=== PATIENT | male | born 1965 ===

== ENCOUNTER 2017-01-09 13:55 | Inpatient (IN) | payer MEDICARE, MEDICAID ==
[2017-01-09] MEDS ORDERED: Albuterol-Ipratrop 3 mg / 0.5 (3 ml) UD ONE (13:57)
[2017-01-09] MEDS: Albuterol-Ipratrop 3 mg / 0.5 (3 ml) UD IH SCH ×5 (14:05→22:35)
[2017-01-09 14:06] VITALS: BMI 24.8
[2017-01-09] MEDS ORDERED: Sodium Chloride 0.9% 1,000 ML IV STA (14:10)
--- NOTE | 2017-01-09 14:15 | ED PDOC ---
Arrival/HPI - General Chief Complaint: Shortness Of Breath Time Seen by Provider: 01/09/17 13:56 Historian: Patient - History of Present Illness Narrative History of Present Illness (Text): 01/09/17 14:22 A 51 year old male, whose past medical history includes asthma, diabetes, hypertension and gastric bypass (5 years ago), presents to the emergency department complaining of shortness of breath for the past three days. Patient also notes right sided chest discomfort that attributes to breathing. Patient denies any other complaints at this time. He states he saw his PMD Dr. Morris and has been taking antibiotics and nebulizers at home. Shortness of breath increased this AM. No hemoptyis. No pleuritic pain, no nausea or vomiting. PMD: Dr. Morris Sewer Cleaner: Dr. Knutson 01/09/17 23:04 Time/Duration: Other (3 days) Symptom Onset: Sudden Symptom Course: Unchanged Activities at Onset: Rest Context: Home Associated Symptoms (Text): right sided chest discomfort Past Medical History - Provider Review Nursing Documentation Reviewed: Yes - Infectious Disease Hx of Infectious Diseases: None - Cardiac Hx Hypertension: Yes Hx Pacemaker: No - Pulmonary Hx Asthma: Yes - Neurological Hx Paralysis: No - Hematological/Oncological Hx Blood Transfusions: No - Musculoskeletal/Rheumatological Hx Musculoskeletal Disorders: Yes - Psychiatric Hx Emotional Abuse: No Hx Physical Abuse: No Hx Substance Use: No - Surgical History Hx Gastric Bypass Surgery: Yes - Anesthesia Hx Anesthesia: Yes Hx Anesthesia Reactions: No Hx Malignant Hyperthermia: No - Suicidal Assessment Feels Threatened In Home Enviroment: No Family/Social History - Physician Review Nursing Documentation Reviewed: Yes Family/Social History: No Known Family HX Smoking Status: Never Smoked Hx Alcohol Use: No Hx Substance Use: No Allergies/Home Meds Allergies/Adverse Reactions: Allergies No Known Allergies Allergy (Verified 01/09/17 14:06) Home Medications: Home Meds Medication Instructions Recorded Confirmed Metformin HCl [Metformin] 1,000 mg PO BID 10/09/13 01/09/17 Metoprolol Tartrate 25 mg PO DAILY 10/09/13 01/09/17 Montelukast [Singulair] 10 mg PO DAILY 10/09/13 01/09/17 Rosuvastatin Calcium [Crestor] 10 mg PO DAILY 10/09/13 01/09/17 Sitagliptin Phosphate [Januvia] 100 mg PO DAILY 10/09/13 01/09/17 Albuterol 0.042% [Albuterol 0.042% 3 ml NEB BID 01/12/16 01/09/17 Inhal Trista (1.25mg/3ml) UD] Albuterol Sulfate [Proair Hfa] 2 puff IH DAILY 01/12/16 01/09/17 Aspirin [Ecotrin] 81 mg PO DAILY 01/12/16 01/09/17 Clopidogrel [Plavix] 75 mg PO DAILY 01/12/16 01/09/17 Insulin Human NPH/Reg [HumuLIN 15 units SC ACBD 01/12/16 01/09/17 70/30 (NPH/Reg)] Lactulose [Kristalose] 20 gm PO BID 01/12/16 01/09/17 Valsartan [Diovan] 40 mg PO DAILY 01/12/16 01/09/17 Advair Diskus 250/50 1 inh INH BID 01/13/16 01/09/17 Prednisone [Deltasone] 20 mg PO DAILY 01/09/17 01/09/17 levoFLOXacin [Levaquin] 750 mg PO DAILY 01/09/17 01/09/17 Review of Systems - Review of Systems Systems not reviewed;Unavailable: Acuity of Condition Constitutional: absent: Fevers Eyes: absent: Vision Changes ENT: absent: Hearing Changes Respiratory: SOB, Cough, Sputum, Wheezing Cardiovascular: Chest Pain, BUSCH. absent: Palpitations, Edema, Syncope Gastrointestinal: Appetite Changes. absent: Abdominal Pain, Diarrhea, Nausea, Vomiting Genitourinary Male: absent: Dysuria Musculoskeletal: absent: Back Pain Skin: absent: Rash Neurological: absent: Headache, Focal Weakness Endocrine: absent: Polyuria Hemo/Lymphatic: absent: Easy Bleeding Psychiatric: Anxiety Physical Exam - Physical Exam Narrative Physical Exam (Text): 01/09/17 14:15 Head: Atraumatic. Normocephalic. Eyes: PERRL. EOMI. Conjunctivae are not pale. ENT: Mucous membranes are moist and intact. Oropharynx is clear and symmetric. No drooling. No pharyngeal erythema/exudates or abscess. Neck: Supple. Full ROM. No JVD. No lymphadenopathy. Cardiovascular: Tachycardic. Regular rhythm. No murmurs, rubs, or gallops. Distal pulses are 2+ and symmetric. Pulmonary/Chest: Mild respiratory distress. Tachypneic. Bilateral expiratory wheezing. Abdominal: Soft and non-distended. There is no tenderness. No rebound, guarding, or rigidity. No organomegaly. Good bowel sounds. Back: No CVA tenderness. No midline tenderness. Extremities: No edema. No cyanosis. No clubbing. Full range of motion in all extremities. No calf tenderness. Skin: Diaphoretic. Pale. Neurological: Alert, awake, and oriented to person, place, time, and situation. Normal speech. No meningeal signs. Motor and sensory exam intact. Psychiatric: Good eye contact. Anxious. Appropriate interaction. Vital Signs Reviewed: Yes Vital Signs Temp Pulse Resp BP Pulse Ox 01/09/17 16:38 110 H 20 139/76 98 01/09/17 16:20 118 H 24 129/83 97 01/09/17 16:14 119 H 20 168/87 H 95 01/09/17 16:08 119 H 22 147/85 99 01/09/17 15:51 115 H 35 H 136/78 99 01/09/17 15:36 109 H 36 H 144/79 98 01/09/17 14:23 24 100 01/09/17 14:22 105 H 36 H 142/74 98 01/09/17 14:00 98.1 F 109 H 24 150/90 97 Temperature: Afebrile Pulse: Tachycardic Respiratory Rate: Tachypneic Appearance: Positive for: Ill-Appearing, Uncomfortable Pain Distress: Moderate Mental Status: Positive for: Alert and Oriented X 3 Finger Stick Blood Glucose: 416 Medical Decision Making ED Course and Treatment: 01/09/17 14:12 Impression: A 51 year old male with shortness of breath for the past three days. Patient is noted to be in mild respiratory distress on initial evaluation. Differential Diagnosis included but are not limited to: asthma exacerbation vs. Pneumonia vs. Coronary artery disease vs. Pulmonary embolism vs. Diabetic ketoacidosis Plan: -- EKG -- chest xray -- labs -- Urinalysis -- influenza A B -- Duoneb, Solumedrol, IV fluids, Zithromax, Rocephin, Morphine -- Reassess and disposition Progress Notes: Patient on initial evaluation is found to have diffuse wheezing, mild respiratory distress and tachypneic. Patient denied chest pain but was noted to have cardiomyopathy on previous hospitalizations. He does have prior history of asthma. He has been taking Levaquin for past three days. Nebulizers and iv steroids given. Patient remains tachypneic and has persitent diffuse wheezing after three nebulizers. Continues to deny chest pain or abdominal pain. EKG unremarkable. EKG: Ordered, reviewed, and independently interpreted the EKG. Rate : BPM Rhythm : NSR Interpretation : No ST-segment elevations or depressions, no T-wave inversions, normal intervals. Comparison : No previous EKG for comparison. Chest xray: Creator : Cuate Anderson MD IMPRESSION: No active disease. Patient has prior history of dvt but several years ago, no longer on anticoagulation. Ddimer unremarkable, there is persistent diffuse wheezing non exam. Patient with elevated lactate. As tachycardic, tachypneic, with elevated lactate and by my interpretation ? infiltrate on chest xray, code sepsis called , patient initated on iv antibiotics. Patient noted to have prior hitory of low ejection fraction, thus iv fluids tailored to this history. He is hyperglycemic, but exam at this time not consistent with DKA. IV fluids given and blood sugar improved. Patient became progressively more tachypneci. BIPAP initiated, he maintained aturations of 99-100% but tachypnea worsening and patient states he felt significantly more sob. Due to progressive tachypnea, persistent wheezing, development of severe respiratory distress, treatment options reviewed with patient, , and brother , patient is agreeable to intubation, procedure was explained to him. PROCEDURE: INTUBATION Performed by the emergency provider Time: Consent: Discussion of the risks, benefits, and alternatives to the procedure, along with informed consent was precluded by the urgency of the procedure and the patient condition. Timeout: A timeout to verify the correct patient, procedure, and site was performed. Indication: Pre-oxygenation: [id number] Medications: See MAR for details. ETT Size: 7.5 Confirmation: Cords directly visualized as tube passed, good bilateral breath sounds, positive CO2 detector color change, tube fogging, adequate chest rise, improving pulse oximetry reading, improved skin color, and absence of gastric sounds,. ETT Secured: The cuff was inflated and the tube was secured appropriately at a distance of cm at the lip. Post-Procedure: Patient sedated with Ativan, propofol, versed drip. chest xray: Creator : Cuate Anderson MD HISTORY: post intubation IMPRESSION: No active disease. Patient after intubation is awake despite boluses of propofol and ativan. states he take benzodiazepines and narcotic pain medication for "bad back" regularly. Welding Operator Dr. Collier consulted. Versed drip ordered. After medication he is comfortable on vent. Care endorsed to admitting and ICU team for vent management and drip management. Patient reportedly had expressed some abdominal discomfort to consults, will also have serial abdominal exams based on history of gastric bypass and to correlate with any of his current symptoms. Family updated with patient's critical condition and risk of cardiac disease, pulmonary disease, infection, asthma, pneumonia, bowel disease. Risks of diabetes and cardiac disease also reviewed. 01/09/17 23:19 - Critical Care Critical Care Minutes: 45 minutes - Lab Interpretations Microbiology Results: Microbiology Results 01/09/17 14:27 Blood Blood Culture - Preliminary NO GROWTH AFTER 4 DAYS 01/09/17 14:26 Blood Blood Culture - Preliminary NO GROWTH AFTER 4 DAYS Lab Results: 01/09/17 14:18 01/09/17 14:18 Lab Results 01/09/17 14:35: pCO2 36, pO2 174.0 H, HCO3 24.5, ABG pH 7.44, ABG Total CO2 25.6 , ABG O2 Saturation 99.5 H, ABG Base Excess 0.6, ABG Potassium 4.4, Sodium 134.0 , Chloride 103.0, Glucose 383 H, Lactate 2.9 H, FiO2 40.0, Arterial Blood Potassium 4.4 01/09/17 14:30: Influenza Typ A,B (EIA) Negative for flu a/b 01/09/17 14:18: PT 10.7, INR 0.99, APTT 25.8, D-Dimer, Quantitative 0.19 01/09/17 14:18: WBC 11.3 H D, RBC 4.62, Hgb 13.3 L, Hct 40.3 L, MCV 87.2, MCH 28.8, MCHC 33.0, RDW 13.1, Plt Count 296, MPV 9.0, Gran % 89.5 H, Lymph % (Auto ) 8.6 L, [place] % (Auto) 1.4, Eos % (Auto) 0.3 L, Baso % (Auto) 0.2, Gran # 10.09 H, Lymph # 1.0 L, [place] # 0.2, Eos # 0.0, Baso # 0.02 01/09/17 14:18: Sodium 136, Chloride 94 L, Potassium 5.3 H, Carbon Dioxide 28, Anion Gap 19, BUN 14, Creatinine 0.8, Est GFR ( Amer) > 60, Est GFR (Non- Af Amer) > 60, Random Glucose 453 H* D, Calcium 9.4, Total Bilirubin 1.1, AST 65 H, ALT 83 H, Alkaline Phosphatase 66, Lactate Dehydrogenase 552, Total Creatine Kinase 134, Troponin I < 0.01, NT-Pro-B Natriuret Pep 131, Total Protein 8.4 H, Albumin 4.8, Globulin 3.6, Albumin/Globulin Ratio 1.3 01/09/17 14:18: pO2 33, VBG pH 7.36, VBG pCO2 52.0, VBG HCO3 29.4 H, VBG Total CO2 31.0 H, VBG O2 Sat (Calc) 69.4 H, VBG Base Excess 2.8 H, VBG Potassium 5.4 H , Sodium 136.0, Chloride 99.0, Glucose 464 H*, Lactate 4.5 H*, FiO2 21.0, Venous Blood Potassium 5.4 H 01/09/17 14:07: POC Glucose (mg/dL) 416 H* I have reviewed the lab results: Yes - RAD Interpretation Radiology Orders: 01/09/17 14:06 CHEST PORTABLE [RAD] Stat Playground Aide: Radiologist - EKG Interpretation EKG Interpretation (Text): 01/09/17 23:07 EKG at 14:04 sinus tachycardia rate of 108 Interpreted by ED Physician: Yes Type: 12 lead EKG - Medication Orders Current Medication Orders: Discontinued Medications Acetaminophen (Tylenol 325mg Tab) 650 mg PO Q6 PRN PRN Reason: Fever >100.4 F Albuterol/Ipratropium (Duoneb 3 Mg/0.5 Mg (3 Ml) Ud) Confirm Administered Dose 3 ml .ROUTE .STK-MED ONE Stop: 01/09/17 13:58 Last Admin: 01/09/17 14:19 Dose: Albuterol/Ipratropium (Duoneb 3 Mg/0.5 Mg (3 Ml) Ud) 3 ml IH Q15M [facility] Stop: 01/09/17 14:46 Last Admin: 01/09/17 14:35 Dose: 3 ml Albuterol/Ipratropium (Duoneb 3 Mg/0.5 Mg (3 Ml) Ud) 3 ml IH [id number] [facility] Last Admin: 01/11/17 07:11 Dose: 3 ml Albuterol/Ipratropium (Duoneb 3 Mg/0.5 Mg (3 Ml) Ud) 3 ml IH Q2H PRN PRN Reason: Shortness of Breath Last Admin: 01/10/17 14:23 Dose: 3 ml Albuterol/Ipratropium (Duoneb 3 Mg/0.5 Mg (3 Ml) Ud) 3 ml IH [id number] [facility] Last Admin: 01/12/17 07:17 Dose: 3 ml Aspirin (Ecotrin) 81 mg PO DAILY [facility] Last Admin: 01/12/17 09:01 Dose: 81 mg Atorvastatin Calcium (Lipitor) 40 mg PO DIN [facility] Last Admin: 01/11/17 17:45 Dose: 40 mg Clopidogrel Bisulfate (Plavix) 75 mg PO DAILY [facility] Last Admin: 01/12/17 09:02 Dose: 75 mg Enoxaparin Sodium (Lovenox) 40 mg SC DAILY [facility] PRN Reason: Protocol Last Admin: 01/12/17 09:01 Dose: 40 mg Etomidate (Amidate) Confirm Administered Dose 20 mg IV .STK-MED ONE Stop: 01/09/17 15:46 Last Admin: 01/09/17 15:50 Dose: 20 mg Sodium Chloride (Sodium Chloride 0.9%) 1,000 mls @ 1,000 mls/hr IV .Q1H STA Stop: 01/09/17 15:09 Last Admin: 01/09/17 14:19 Dose: 1,000 mls/hr Ceftriaxone Sodium (Rocephin 1 Gram Ivpb) 1 gm in 100 mls @ 200 mls/hr IVPB ONCE STA PRN Reason: Protocol Stop: 01/09/17 14:51 Last Admin: 01/09/17 14:49 Dose: 200 mls/hr Magnesium Sulfate 2 gm/ Sodium (Chloride) 104 mls @ 102 mls/hr IVPB ONCE ONE Stop: 01/09/17 15:39 Last Admin: 01/09/17 14:57 Dose: 102 mls/hr Azithromycin (Zithromax 500mg In Ns) 500 mg in 250 mls @ 166.667 mls/hr IVPB STAT STA PRN Reason: Protocol Stop: 01/09/17 16:08 Last Admin: 01/09/17 15:17 Dose: 166.667 mls/hr Propofol (Diprivan) Confirm Administered Dose 1,000 mg in 100 mls @ ud .ROUTE .[place] ONE Stop: 01/09/17 15:57 Last Admin: 01/09/17 16:00 Dose: 50 mg Midazolam 100 mg/100ml in NS (Midazolam 100 Mg/100ml In Ns) 100 mg in 100 mls @ 5 mls/hr IV .Q20H PRN; Protocol; 5 MG/HR PRN Reason: Agitation Last Admin: 01/09/17 17:31 Dose: 10 mg/hr, 10 mls/hr Ceftriaxone Sodium (Rocephin 1 Gram Ivpb) 1 gm in 100 mls @ 100 mls/hr IVPB DAILY [facility] PRN Reason: Protocol Last Admin: 01/12/17 09:02 Dose: 100 mls/hr Azithromycin (Zithromax 500mg In Ns) 500 mg in 250 mls @ 167 mls/hr IVPB DAILY [facility] PRN Reason: Protocol Last Admin: 01/12/17 09:02 Dose: 167 mls/hr Propofol (Diprivan) Confirm Administered Dose 1,000 mg in 100 mls @ ud .ROUTE .[place] ONE Stop: 01/09/17 18:13 Last Admin: 01/09/17 18:36 Dose: Fentanyl Citrate (Fentanyl Citrate/Sodium Chloride 1 Mg/100 Ml) 1,000 mcg in 100 mls @ 2 mls/hr IV .Q24H PRN; Protocol; 20 MCG/HR PRN Reason: TITRATE PER MD ORDER Last Admin: 01/09/17 18:29 Dose: 50 mcg/hr, 5 mls/hr Propofol (Diprivan) 1,000 mg in 100 mls @ 2.422 mls/hr IV .Q24H PRN; Protocol; 5 MCG/KG/MIN PRN Reason: TITRATE PER MD ORDER Last Admin: 01/10/17 09:12 Dose: 40 mcg/kg/min, 19.377 mls/hr Ibuprofen (Motrin Tab) 600 mg PO Q6H PRN PRN Reason: Pain, moderate (4-7) Last Admin: 01/11/17 19:58 Dose: 600 mg Re-Assess: MAR Pain/Vitals Document 01/11/17 20:58 PD (Rec: 01/11/17 22:15 PD [id number]) Pain Reassessment Is This A Pain ReAssessment? Yes Sleep Is patient sleeping during reassessment? Yes Insulin Human Regular (Humulin R Low) 0 units SC [facility] PRN Reason: Protocol Last Admin: 01/11/17 07:57 Dose: 3 units Insulin Human Regular (Humulin R Med) 0 units SC [facility] PRN Reason: Protocol Last Admin: 01/12/17 11:54 Dose: 3 units Insulin Lispro Protam/Lispro Human (Humalog Mix 75/25) 10 units SC BID [facility] Last Admin: 01/11/17 07:39 Dose: Insulin Lispro Protam/Lispro Human (Humalog Mix 75/25) 14 units SC BID [facility] Last Admin: 01/10/17 17:10 Dose: Not Given Non-Admin Reason: NPO Insulin Lispro Protam/Lispro Human (Humalog Mix 75/25) 16 units SC BID [facility] Last Admin: 01/12/17 09:01 Dose: 16 u Lorazepam (Ativan) Confirm Administered Dose 2 mg .ROUTE .STK-MED ONE Stop: 01/09/17 16:11 Last Admin: 01/09/17 16:12 Dose: 2 mg Lorazepam (Ativan) 2 mg IVP ONCE ONE Stop: 01/09/17 16:18 Last Admin: 01/09/17 17:22 Dose: Lorazepam (Ativan) 2 mg IVP ONCE ONE Stop: 01/09/17 16:18 Last Admin: 01/09/17 16:17 Dose: 2 mg Lorazepam (Ativan) 1 mg IVP ONCE ONE PRN Reason: Protocol Stop: 01/10/17 08:52 Last Admin: 01/10/17 09:11 Dose: 1 mg Re-Assess: Reassess Psych Meds Document 01/10/17 09:41 CLA (Rec: 01/10/17 10:39 CLA [id number]) Reassess Psych Med Effective Lorazepam (Ativan) 1 mg IVP Q3 PRN; Protocol PRN Reason: Anxiety Losartan Potassium (Cozaar) 25 mg PO DAILY [facility] Last Admin: 01/12/17 09:00 Dose: 25 mg Methylprednisolone (Solu-Medrol) 125 mg IVP STAT STA Stop: 01/09/17 14:08 Last Admin: 01/09/17 14:15 Dose: 125 mg Methylprednisolone (Solu-Medrol) 60 mg IVP Q12 [facility] Last Admin: 01/10/17 22:04 Dose: 60 mg Methylprednisolone (Solu-Medrol) 40 mg IVP Q12 [facility] Last Admin: 01/12/17 09:02 Dose: 40 mg Montelukast Sodium (Singulair) 10 mg PO DAILY [facility] Last Admin: 01/12/17 09:02 Dose: 10 mg Morphine Sulfate (Morphine) 2 mg IVP STAT STA Stop: 01/09/17 15:43 Last Admin: 01/11/17 07:39 Dose: Morphine Sulfate (Morphine) 2 mg IVP STAT STA Stop: 01/11/17 05:33 Last Admin: 01/11/17 05:42 Dose: 2 mg Re-Assess: ZANE Pain Assessment Document 01/11/17 06:42 HD (Rec: 01/11/17 07:41 HD [id number]) Pain Reassessment Is this a pain reassessment? Yes Sleep Is patient sleeping during reassessment? Yes Presence of Pain Presence of Pain No Ondansetron HCl (Zofran Inj) 4 mg IVP Q4H PRN PRN Reason: Nausea/Vomiting Pantoprazole Sodium (Protonix Inj) 40 mg IVP DAILY [facility] Last Admin: 01/11/17 10:24 Dose: 40 mg Pantoprazole Sodium (Protonix Ec Tab) 40 mg PO ACB [facility] Last Admin: 01/12/17 09:02 Dose: 40 mg Succinylcholine Chloride (Quelicin) Confirm Administered Dose 200 mg IV .STK- MED ONE Stop: 01/09/17 15:46 Last Admin: 01/09/17 17:17 Dose: 100 mg - Scribe Statement Nick Arita All medical record entries made by the Claytonibaudrey were at my direction and personally dictated by me. I have reviewed the chart and agree that the record accurately reflects my personal performance of the history, physical exam, medical decision making, and the department course for this patient. I have also personally directed, reviewed, and agree with the discharge instructions and disposition. Disposition/Present on Arrival - Present on Arrival Any Indicators Present on Arrival: Yes History of DVT/PE: No History of Uncontrolled Diabetes: Yes Urinary Catheter: No History of Decub. Ulcer: No History Surgical Site Infection Following: None - Disposition Have Diagnosis and Disposition been Completed?: Yes Diagnosis: Status asthmaticus, Pneumonia, Respiratory distress, Hyperglycemia, Tachypnea Disposition: HOSPITALIZED Disposition Time: 16:30 Patient Plan: Admission, ICU Condition: CRITICAL
[2017-01-09 14:20] LABS: ADD MANUAL DIFF? NO
[2017-01-09] MEDS ORDERED: cefTRIAXone 1 gm 1 GM/100 ML BAG IVPB STA (14:22)
[2017-01-09 14:25] LABS: BASO # 0.02 K/mm3 (0.0-2.0); BASO % 0.2 % (0.0-3.0); EOS % 0.3 % (1.5-5.0); GRAN # 10.09 (1.4-6.5); GRAN % 89.5 % (50.0-68.0); HEMATOCRIT 40.3 % (42.0-52.0); LYMPH % 8.6 % (22.0-35.0); MEAN CELL VOLUME 87.2 fL (80.0-105.0); MEAN CORPUSCULAR HEMOGLOBIN 28.8 pg (25.0-35.0); MONO # 0.2 (0.1-0.6); MONO % 1.4 % (1.0-6.0); PLATELET COUNT 296 10^3/uL (120.0-450.0); RED CELL DISTRIBUTION WIDTH 13.1 % (11.5-14.5); WHITE BLOOD COUNT 11.3 10^3/ul (4.5-11.0)
[2017-01-09 14:37] LABS: ALB/GLOB RATIO 1.3 (1.1-1.8); ALKALINE PHOSPHATASE 66 U/L (38-133); ALT/SGPT 83 U/L (7-56); AST/SGOT 65 U/L (15-59); BILIRUBIN,TOTAL 1.1 mg/dL (0.2-1.3); BLOOD UREA NITROGEN 14 mg/dL (7-21); CALCIUM 9.4 mg/dL (8.4-10.5); CARBON DIOXIDE 28 mmol/L (21-33); CHLORIDE 94 mmol/L (98-107); GFR AFRICAN-AMERICAN > 60; POTASSIUM 5.3 mmol/L (3.6-5.0); SODIUM 136 mmol/L (132-148); TOTAL PROTEIN 8.4 g/dL (5.8-8.3)
[2017-01-09] MEDS ORDERED: Magnesium Sulfate 2 GM in Sodium Chloride 0.9% 100 ML IVPB ONE (14:38)
[2017-01-09 14:39] LABS: D DIMER 0.19 mg/L FEU (0-0.50); INR 0.99 (0.93-1.08); PARTIAL THROMBOPLASTIN TIME 25.8 Seconds (23.7-30.8)
[2017-01-09] MEDS ORDERED: Azithromycin 500MG/NS 250ml 500 MG/250 ML BAG IVPB STA (14:39)
[2017-01-09 14:40] LABS: VENOUS BLOOD GAS BASE EXCESS 2.8 mmol/L (0.0-2.0); VENOUS BLOOD PH 7.36 (7.32-7.43)
[2017-01-09 14:40] LABS: ARTERIAL BLOOD GAS HCO3 24.5 mmol/L (21-28); ARTERIAL BLOOD GAS PH 7.44 (7.35-7.45)
[2017-01-09 14:50] LABS: GLUCOSE,RANDOM 453 mg/dL (70-110); TROPONIN I < 0.01 ng/mL
[2017-01-09] MEDS ORDERED: Morphine 2 mg/ml ISec IVP STA (15:42)
[2017-01-09] MEDS ORDERED: Etomidate 20 mg/10ml Inj IV ONE (15:45)
[2017-01-09] MEDS ORDERED: Succinylcholine 200 mg/10 ml Inj IV ONE (15:45)
[2017-01-09] MEDS ORDERED: Propofol 10 mg/ml 1,000 MG/100 ML VIAL ONE ×2 (15:56→18:12)
--- NOTE | 2017-01-09 16:06 | CP.PCM.HP ---
<Ml Chapin - Last Filed: 01/10/17 06:21> History of Present Illness - History of Present Illness History of Present Illness: 51 yo M w/ PMHx of asthma, DM, systolic heart failure with EF of 37%, HTN, DVT x1, and gastric bypass 5 years prior, presents with 3 days of gradually worsening SOB. Pt was unable to speak, so pt's gave the hx. Pt's reports that pt had recent cold, chills, nausea, intermittent diarrhea due to gastric bypass. Also reports R chest discomfort associated with deep breathing. Denies sick contacts. PMHx: asthma, DM, systolic heart failure with EF of 37%, HTN, DVT x1 Sx: gastric bypass 5 years prior, cholecystectomy medications: allergies: nkda social: denies etoh, smoking, illicit drugs Present on Admission - Present on Admission Any Indicators Present on Admission: Yes History of DVT/PE: Yes Review of Systems - Review of Systems Systems not reviewed;Unavailable: Respiratory Distress Past Patient History - Infectious Disease Hx of Infectious Diseases: None - Past Social History Smoking Status: Never Smoked - CARDIAC Hx Hypertension: Yes Hx Pacemaker: No - PULMONARY Hx Asthma: Yes - NEUROLOGICAL Hx Paralysis: No - HEMATOLOGICAL/ONCOLOGICAL Hx Blood Transfusions: No - MUSCULOSKELETAL/RHEUMATOLOGICAL Hx Musculoskeletal Disorders: Yes - PSYCHIATRIC Hx Emotional Abuse: No Hx Physical Abuse: No Hx Substance Use: No - SURGICAL HISTORY Hx Cholecystectomy: Yes Hx Gastric Bypass Surgery: Yes - ANESTHESIA Hx Anesthesia: Yes Hx Anesthesia Reactions: No Hx Malignant Hyperthermia: No Meds Home Medications: Home Medication List Medication Instructions Recorded Confirmed Type Albuterol HFA [Ventolin HFA 90 2 puff IH [id number] #1 puff 01/12/17 Rx mcg/actuation (8 g)] Doxycycline Hyclate 100 mg PO Q12 #10 capsule 01/12/17 Rx Famotidine [Pepcid] 40 mg PO DAILY #5 tablet 01/12/17 Rx Prednisone [Deltasone] 40 mg PO DAILY #5 tablet 01/12/17 Rx Allergies/Adverse Reactions: Allergies Allergy/AdvReac Type Severity Reaction Status Date / Time No Known Allergies Allergy Verified 01/09/17 14:06 Physical Exam - Constitutional Appears: In Acute Distress - Head Exam Head Exam: ATRAUMATIC, NORMOCEPHALIC - Eye Exam Eye Exam: EOMI, Normal appearance - Respiratory Exam Respiratory Exam: Accessory Muscle Use, Respiratory Distress - Cardiovascular Exam Cardiovascular Exam: Tachycardia, +S1, +S2 - GI/Abdominal Exam GI & Abdominal Exam: Soft, Tenderness Additional comments: right sided tenderness, no rebound - Exam External exam: absent: Lacerations, Lesions - Extremities Exam Extremities exam: Positive for: pedal pulses present. Negative for: pedal edema , tenderness - Back Exam Back exam: absent: CVA tenderness (L), CVA tenderness (R) - Neurological Exam Neurological exam: Alert - Skin Skin Exam: Intact, Normal Color Results - Vital Signs Recent Vital Signs: Last Vital Signs Temp 98.1 F 01/09/17 14:00 Pulse 109 H 01/09/17 14:00 Resp 24 01/09/17 14:23 BP 150/90 01/09/17 14:00 Pulse Ox 100 01/09/17 14:23 - Labs Result Diagrams: 01/10/17 05:00 01/10/17 05:00 Labs: Laboratory Results - last 24 hr 01/09/17 01/09/17 01/09/17 14:07 14:18 14:18 WBC RBC Hgb Hct MCV MCH MCHC RDW Plt Count MPV Gran % Lymph % (Auto) [place] % (Auto) Eos % (Auto) Baso % (Auto) Gran # Lymph # [place] # Eos # Baso # PT INR APTT D-Dimer, Quantitative pCO2 pO2 33 HCO3 ABG pH ABG Total CO2 ABG O2 Saturation ABG Base Excess ABG Potassium VBG pH 7.36 VBG pCO2 52.0 VBG HCO3 29.4 H VBG Total CO2 31.0 H VBG O2 Sat (Calc) 69.4 H VBG Base Excess 2.8 H VBG Potassium 5.4 H Sodium 136.0 136 Chloride 99.0 94 L Glucose 464 H* Lactate 4.5 H* FiO2 21.0 Potassium 5.3 H Carbon Dioxide 28 Anion Gap 19 BUN 14 Creatinine 0.8 Est GFR ( Amer) > 60 Est GFR (Non-Af Amer) > 60 POC Glucose (mg/dL) 416 H* Random Glucose 453 H* D Calcium 9.4 Total Bilirubin 1.1 AST 65 H ALT 83 H Alkaline Phosphatase 66 Lactate Dehydrogenase 552 Total Creatine Kinase 134 Troponin I < 0.01 NT-Pro-B Natriuret Pep 131 Total Protein 8.4 H Albumin 4.8 Globulin 3.6 Albumin/Globulin Ratio 1.3 Arterial Blood Potassium Venous Blood Potassium 5.4 H Influenza Typ A,B (EIA) 01/09/17 01/09/17 01/09/17 14:18 14:18 14:30 WBC 11.3 H D RBC 4.62 Hgb 13.3 L Hct 40.3 L MCV 87.2 MCH 28.8 MCHC 33.0 RDW 13.1 Plt Count 296 MPV 9.0 Gran % 89.5 H Lymph % (Auto) 8.6 L [place] % (Auto) 1.4 Eos % (Auto) 0.3 L Baso % (Auto) 0.2 Gran # 10.09 H Lymph # 1.0 L [place] # 0.2 Eos # 0.0 Baso # 0.02 PT 10.7 INR 0.99 APTT 25.8 D-Dimer, Quantitative 0.19 pCO2 pO2 HCO3 ABG pH ABG Total CO2 ABG O2 Saturation ABG Base Excess ABG Potassium VBG pH VBG pCO2 VBG HCO3 VBG Total CO2 VBG O2 Sat (Calc) VBG Base Excess VBG Potassium Sodium Chloride Glucose Lactate FiO2 Potassium Carbon Dioxide Anion Gap BUN Creatinine Est GFR ( Amer) Est GFR (Non-Af Amer) POC Glucose (mg/dL) Random Glucose Calcium Total Bilirubin AST ALT Alkaline Phosphatase Lactate Dehydrogenase Total Creatine Kinase Troponin I NT-Pro-B Natriuret Pep Total Protein Albumin Globulin Albumin/Globulin Ratio Arterial Blood Potassium Venous Blood Potassium Influenza Typ A,B (EIA) Negative for flu a/b 01/09/17 14:35 WBC RBC Hgb Hct MCV MCH MCHC RDW Plt Count MPV Gran % Lymph % (Auto) [place] % (Auto) Eos % (Auto) Baso % (Auto) Gran # Lymph # [place] # Eos # Baso # PT INR APTT D-Dimer, Quantitative pCO2 36 pO2 174.0 H HCO3 24.5 ABG pH 7.44 ABG Total CO2 25.6 ABG O2 Saturation 99.5 H ABG Base Excess 0.6 ABG Potassium 4.4 VBG pH VBG pCO2 VBG HCO3 VBG Total CO2 VBG O2 Sat (Calc) VBG Base Excess VBG Potassium Sodium 134.0 Chloride 103.0 Glucose 383 H Lactate 2.9 H FiO2 40.0 Potassium Carbon Dioxide Anion Gap BUN Creatinine Est GFR ( Amer) Est GFR (Non-Af Amer) POC Glucose (mg/dL) Random Glucose Calcium Total Bilirubin AST ALT Alkaline Phosphatase Lactate Dehydrogenase Total Creatine Kinase Troponin I NT-Pro-B Natriuret Pep Total Protein Albumin Globulin Albumin/Globulin Ratio Arterial Blood Potassium 4.4 Venous Blood Potassium Influenza Typ A,B (EIA) Assessment & Plan - Assessment and Plan (Free Text) Plan: 51 yo M w/ PMHx of asthma, DM, systolic heart failure with EF of 37%, HTN, DVT x1, and gastric bypass 5 years prior, presents with 3 days of gradually worsening SOB. Currently intubated. respiratory failure likely 2/2 asthma exacerbation: intubated ceftriaxone 1gm IVPB qd azithromycin 500 mg IVPb qd solumedrol 60 mg IV q12 cardiomyopathy: Cardiac consult Echo ordered initial troponin negative DM: ISS low humalog mix 75/25 10 u sc BID achs accuchecks ppx measures lovenox 40 protonix IV zofran 4mg q4 IV prn <Desirae Waldron - Last Filed: 01/17/17 16:37> Results - Vital Signs Recent Vital Signs: Last Vital Signs Temp 98.3 F 01/12/17 12:00 Pulse 91 H 01/12/17 12:00 Resp 20 01/12/17 11:59 BP 100/63 01/12/17 09:00 Pulse Ox 98 01/12/17 11:50 - Labs Result Diagrams: 01/12/17 05:40 01/12/17 05:40 Attending/Attestation - Attestation I have personally seen and examined this patient.: Yes I have fully participated in the care of the patient.: Yes I have reviewed all pertinent clinical information: Yes Notes (Text): 01/17/17 12:25 Attending note: patient seen and examined with resident in ER. Patient is in acute respiratory distress. Patient seen with ICU attending and ER physician. History from patient's . This is a 51 year old male with history of asthma, IDDM, CHF (EF~37%), HTN, history of DVT 10 years ago, gastric bypass 5 years ago, CAD who got admitted for evaluation of worsening of shortness of breath and found to have respiratory distress due to asthma exacerbation and required intubation. Admit the patient to ICU. Continue vent settings per manager area. Cardiology evaluation requested. Cardiac enzymes ordered. History of opiate and Xanax use. Continue IV morphine and Ativan. Started on Versed drip. Started on Iv Rocephin and Zithromax. Monitor the patient closely in ICU. The diagnosis and follow-up plan discussed with patient's in detail by the bedside. 01/17/17 16:37
[2017-01-09 16:10] LABS: PH,URINE 6.5 (4.7-8.0); URINE BILIRUBIN NEGATIVE (NEGATIVE); URINE BLOOD NEGATIVE (NEGATIVE); URINE GLUCOSE (UA) >=1000 mg/dL (NEGATIVE); URINE KETONE NEGATIVE (NEGATIVE); URINE LEUKOCYTE ESTERASE NEGATIVE Leu/uL (NEGATIVE); URINE PROTEIN NEGATIVE mg/dL (<30 mg/dL)
[2017-01-09 16:22] LABS: URINE APPEARANCE CLEAR (CLEAR); URINE COLOR STRAW (YELLOW)
[2017-01-09] MEDS: Midazolam 100 mg/100ml in NS 100 MG/100 ML SOL IV PRN ×2 (17:23→17:31)
[2017-01-09] MEDS: Propofol 10 mg/ml 1,000 MG/100 ML VIAL IV PRN (18:00)
--- NOTE | 2017-01-09 18:00 | RAD ---
HISTORY: sob COMPARISON: No prior. FINDINGS: LUNGS: No active pulmonary disease. Limited by poor inspiration. PLEURA: No significant pleural effusion identified, no pneumothorax apparent. CARDIOVASCULAR: Normal. OSSEOUS STRUCTURES: No significant abnormalities. VISUALIZED UPPER ABDOMEN: Normal. OTHER FINDINGS: None. IMPRESSION: No active disease.
[2017-01-09 18:07] LABS: VENOUS BLOOD GAS BASE EXCESS 0.3 mmol/L (0.0-2.0); VENOUS BLOOD PH 7.35 (7.32-7.43)
[2017-01-09] MEDS ORDERED: Fentanyl 1000mcg/100ml NS 1,000 MCG/100 ML BAG IV PRN (18:13)
[2017-01-09] MEDS: Insulin Lispro (humaLOG) MIX 75/25(10 ml) SC SCH (18:14)
--- NOTE | 2017-01-09 18:15 | RAD ---
HISTORY: post intubation COMPARISON: No prior. FINDINGS: LUNGS: No active pulmonary disease. PLEURA: No significant pleural effusion identified, no pneumothorax apparent. CARDIOVASCULAR: Normal. OSSEOUS STRUCTURES: No significant abnormalities. VISUALIZED UPPER ABDOMEN: Normal. OTHER FINDINGS: ETT above the gary. IMPRESSION: No active disease.
[2017-01-09] MEDS: Enoxaparin 40 mg Syringe SC SCH (18:16)
[2017-01-09 20:15] LABS: TROPONIN I < 0.01 ng/mL
--- NOTE | 2017-01-09 20:42 | CON ---
DATE: 01/09/2017 REQUESTING PHYSICIAN: Dr. Waldron. CHIEF COMPLAINT: The patient presents with shortness of breath and wheezing, acute exacerbation of a sthma. HISTORY OF PRESENT ILLNESS: The patient is a 51-year-old male with a past history of asthma, diabete s, hypertension and gastric bypass, also has a history of cardiomyopathy and some mild coronary arter y disease as well as a history of DVT in the past. The patient presented to the Emergency Room with a 3-4 day history of shortness of breath, wheezing and coughing and there is a questionable history o f viral syndrome or having an upper respiratory tract infection over the last 3 days as well. No com plaints of chest pain, no nauseousness or vomiting. No abdominal pain or diarrhea. The patient in [facility] ER developed extreme respiratory insufficiency or failure and required intubation. He is on a hu tilator with sedation at this time, hemodynamically stable with a FiO2 of 60%, tidal volume at 400 an d PEEP of 5, respiratory rate of 14. O2 saturation is 98%. PAST MEDICAL HISTORY: As above. ALLERGIES: He has no known allergies. CURRENT MEDICATIONS: Can be evaluated as per the nurse's intake form. SOCIAL HISTORY: No history of smoking or EtOH abuse and no drug abuse. FAMILY HISTORY: Noncontributory. REVIEW OF SYSTEMS: CONSTITUTIONAL: All negative. HEENT: All negative. RESPIRATORY: The patient presented with shortness of breath, the cough, wheezing, chest congestion. CARDIOVASCULAR: Did have some chest discomfort. GASTROINTESTINAL: All negative. GENITOURINARY: All negative. MUSCULOSKELETAL: All negative. NEUROPSYCHIATRIC: All negative. HEMATOLOGIC: All negative. IMMUNOLOGIC: All negative. ENDOCRINE: All negative. INTEGRITY: All negative. PHYSICAL EXAMINATION: VITAL SIGNS: Note that his temperature is 98.1, his pulse 109, respirations are 24 and BP is 150/90. SKIN: Warm and dry. HEAD: Atraumatic, normocephalic. EYES: Reactive to light. EARS, NOSE AND THROAT: Seem to be within normal limits. NECK: Supple, no JVD, no thyroid enlargement, no lymph nodes. HEART: Has a regular rate and rhythm. Normal S1, S2. LUNGS: Reveal rare rhonchi at the bases. ABDOMEN: Soft, positive bowel sounds. No organomegaly noted. GENITALIA AND RECTAL: Deferred. MUSCULOSKELETAL: No joint deformities. EXTREMITIES: Reveal no edema. NEUROLOGIC: He seemed to be grossly intact. LABORATORY DATA: His white count is 11.3, hemoglobin is 13.3, hematocrit 40.3 with platelets of 296, 000. Sodium is 136, potassium 5.3, chloride 94, CO2 of 28 with a BUN of 14, creatinine of 0.8 and a glucose of 453. Chest x-ray reveals a possible infiltrate at the right lower lobe area. ET tube in good position. IMPRESSION: This patient has acute exacerbation of his asthma. There may be a viral syndrome or pos sible early pneumonia on the right side of his chest. The patient has hyperglycemia and a history of diabetes. He has a history of hypertension, gastric bypass, cardiomyopathy and a past history of de ep venous thrombosis. PLAN: We will continue with ventilator support and titrate the FiO2 as tolerated. The patient will get aggressive pulmonary toilet. We will schedule for a CT scan of his chest. The patient is gettin g antibiotics of Rocephin and Zithromax. He is on Solu-Medrol 60 mg q. 12 and is getting DuoNeb ever y 6 hours and Zithromax IV as an antibiotic as well. He is on Diprivan for sedation and is being cov ered with insulin for his hyperglycemia. We will follow his chest x-ray and arterial blood gas close ly. We will continue to treat aggressively along with the other consultants and the primary care doc tor. Jt Collier MD cc: [id number] TT: 01/09/2017 20:42:16 Confirmation # [id number] Dictation # [id number]
--- NOTE | 2017-01-09 21:05 | CT ---
EXAM: CT Chest Without Intravenous Contrast CLINICAL HISTORY: 51 years old, male; Signs and symptoms; Other: Pneumonia TECHNIQUE: Axial computed tomography images of the chest without intravenous contrast. This CT exam was performed using one or more of the following dose reduction techniques: automated exposure control, adjustment of the mA and/or kV according to patient size, and/or use of iterative reconstruction technique. MIP reconstructed images were created and reviewed. Coronal and sagittal reformatted images were created and reviewed. EXAM DATE/TIME: 01/09/2017 6:06 PM COMPARISON: Chest x-ray, 01/09/17 FINDINGS: Tubes, lines and devices: An endotracheal tube is in place. Tip of the tube is at the level of the aortic arch. Lungs and pleural spaces: Trachea distal to the endotracheal tube and main bronchi are patent. There is dependent atelectasis greatest in the lower lobes. There is patchy airspace disease at both lung bases. There is segmental area of consolidation in the left lower lobe with air bronchograms. There is focal consolidation in medial right costophrenic sulcus. There are trace pleural effusions. Heart and vasculature: The heart is mildly enlarged. There is minimal pericardial fluid. There are coronary calcifications.Aorta and main pulmonary artery are normal in caliber.There are vascular calcifications. Mediastinum: Esophagus is partially distended with air. There are no pathologically enlarged mediastinal nodes.Molly are not optimally evaluated without contrast material. Thyroid: Thyroid is heterogeneous with nodules and calcifications. Bones/joints: There are degenerative changes in the spine. There is an old rib fracture. Soft tissues: unremarkable Stomach and bowel: Distended loops of small and large bowel in the upper abdomen. Upper abdomen: Gallbladder is surgically absent. There are postsurgical changes at the stomach suggesting gastric bypass. IMPRESSION: Mild cardiomegaly and atherosclerotic disease; endotracheal tube tip at the aortic arch; bibasilar airspace disease atelectasis and/or infiltrate with trace effusions; distended upper bowel loops, ileus versus early obstruction
--- NOTE | 2017-01-09 21:20 | CARD ---
APPROVED REPORT EKG Measurement Heart [id number] <Conclusion> Poor data quality, interpretation may be adversely affected Sinus tachycardia Otherwise normal ECG
--- NOTE | 2017-01-09 21:40 | CP.CCUPN ---
CCU Subjective - Physician Review Subjective (Free Text): 01/09/17 21:34 This is a 51 yo M with PMH of asthma, DM, CAD, Cardiomyopathy with EF of 37%, HTN, hx of DVT, and gastric bypass 5 years prior who presents with 3 days of gradually worsening SOB. Per family, patient was experiencing viral- like sx starting approximately 4 days prior, began to become short of breath 3 days prior, and acutely worsened today, so he presented to the ED. Initially in the ED, patient was improved and stable after breathing treatments, but became acutely dyspnic and in sufficient respiratory distress that he required intubation. By time of ICU exam, patient was intubated and mechanically ventilated on PRVC 60%/400/24/5, and therefore unable to provide history or ROS. Per family, he has never needed to be intubated for his asthma in the past. PMH: asthma, DM, systolic heart failure with EF of 37%, HTN, DVT x1 PSH: gastric bypass 5 years prior, cholecystectomy SHx: family denies etoh, smoking, illicits CCU Objective - Vital Signs / Intake & Output Vital Signs (Last 4 hours): Vital Signs Temp Pulse Resp BP Pulse Ox 01/09/17 21:00 94 H 105/66 98 01/09/17 20:50 93 H 98 01/09/17 20:45 93 H 105/66 98 01/09/17 20:43 93 H 101/67 98 01/09/17 20:40 94 H 98 01/09/17 20:31 90 15 01/09/17 20:00 97.2 F L 01/09/17 19:45 92 H 107/69 99 01/09/17 19:40 94 H 99 01/09/17 19:30 94 H 109/69 98 01/09/17 19:20 95 H 98 01/09/17 19:15 93 H 111/70 99 01/09/17 19:10 94 H 98 01/09/17 19:00 96 H 112/71 98 01/09/17 18:50 94 H 98 01/09/17 18:45 98 H 118/74 99 01/09/17 18:40 105 H 99 01/09/17 18:30 107 H 119/80 99 01/09/17 18:20 99 H 98 01/09/17 18:15 106 H 115/77 98 01/09/17 18:10 104 H 98 01/09/17 18:00 102 H 121/74 98 01/09/17 17:53 97.2 F L 108 H 01/09/17 17:50 109 H 98 01/09/17 17:45 103 H 112/71 98 01/09/17 17:40 97 H 98 Intake and Output (Last 8hrs): Intake & Output 01/09/17 01/09/17 01/09/17 06:59 14:59 22:59 Intake Total 160 Output Total 300 Balance -140 Weight 80.739 kg Intake: IV 160 Left Forearm 45 Left Hand 15 Oral 0 Output: Urine 300 Urethral (Dubose) 300 Other: Voiding Method Indwelling Catheter # Bowel Movements 0 - Medications Active Medications: Active Medications Generic Name Dose Route Start Last Admin Trade Name Freq PRN Reason Stop Dose Admin Albuterol/Ipratropium 3 ml 01/09/17 19:30 Duoneb 3 Mg/0.5 Mg (3 Ml) Ud IH [id number] [facility] Enoxaparin Sodium 40 mg 01/09/17 17:30 01/09/17 18:16 Lovenox SC 40 mg DAILY ENE Administration Protocol Ceftriaxone Sodium 1 gm in 100 mls @ 100 mls/hr 01/10/17 10:00 Rocephin 1 Gram Ivpb IVPB DAILY ENE Protocol Azithromycin 500 mg in 250 mls @ 167 mls/hr 01/10/17 10:00 Zithromax 500mg In Ns IVPB DAILY ENE Protocol Propofol 1,000 mg in 100 mls @ 2.422 mls/hr 01/09/17 18:08 01/09/17 18:00 Diprivan IV 60 mcg/kg/min .Q24H PRN 29.066 mls/hr TITRATE PER MD ORDER Administration Protocol 5 MCG/KG/MIN Insulin Human Regular 0 units 01/09/17 22:00 Humulin R Low SC ACHS [facility] Protocol Insulin Lispro Protam/Lispro Human 10 units 01/09/17 18:00 01/09/17 18:14 Humalog Mix 75/25 SC 10 units BID ENE Administration Methylprednisolone 60 mg 01/09/17 22:00 Solu-Medrol IVP Q12 ENE Ondansetron HCl 4 mg 01/09/17 17:01 Zofran Inj IVP Q4H PRN Nausea/Vomiting Pantoprazole Sodium 40 mg 01/09/17 17:15 01/09/17 18:17 Protonix Inj IVP 40 mg DAILY ENE Administration - Patient Studies Lab Studies: Lab Studies 01/09/17 01/09/17 01/09/17 Range/Units 19:25 17:50 15:05 pO2 132 H (30-55) mm/Hg VBG pH 7.35 (7.32-7.43) VBG pCO2 48.0 (40-60) VBG HCO3 26.5 (21-28) mmol/l VBG Total CO2 28.0 (22-28) mmol.L VBG O2 Sat (Calc) 99.1 H (40-65) % VBG Base Excess 0.3 (0.0-2.0) mmol/L VBG Potassium 4.6 (3.6-5.2) mmol/L Sodium 137.0 (132-148) mmol/L Chloride 105.0 (98-107) mmol/L Glucose 340 H (75-110) mg/dl Lactate 3.0 H (0.7-2.1) mmol/L FiO2 21.0 % Lactate Dehydrogenase 533 (333-699) U/L Total Creatine Kinase 137 (35-230) U/L Troponin I < 0.01 ng/mL Venous Blood Potassium 4.6 (3.6-5.2) mmol/L Urine Color Straw (YELLOW) Urine Appearance Clear (CLEAR) Urine pH 6.5 (4.7-8.0) Ur Specific [place] 1.015 (1.005-1.035) Urine Protein Negative (<30 mg/dL) mg/dL Urine Glucose (UA) >=1000 (NEGATIVE) mg/dL Urine Ketones Negative (NEGATIVE) mg/dL Urine Blood Negative (NEGATIVE) Urine Nitrate Negative (NEGATIVE) Urine Bilirubin Negative (NEGATIVE) Urine Urobilinogen 1.0 H (<1 E.U./dL) E.U./dL Ur Leukocyte Esterase Negative (NEGATIVE) Krystian/uL Laboratory Results - last 24 hr 01/09/17 01/09/17 01/09/17 15:05 17:50 19:25 pO2 132 H VBG pH 7.35 VBG pCO2 48.0 VBG HCO3 26.5 VBG Total CO2 28.0 VBG O2 Sat (Calc) 99.1 H VBG Base Excess 0.3 VBG Potassium 4.6 Sodium 137.0 Chloride 105.0 Glucose 340 H Lactate 3.0 H FiO2 21.0 Lactate Dehydrogenase 533 Total Creatine Kinase 137 Troponin I < 0.01 Venous Blood Potassium 4.6 Urine Color Straw Urine Appearance Clear Urine pH 6.5 Ur Specific [place] 1.015 Urine Protein Negative Urine Glucose (UA) >=1000 Urine Ketones Negative Urine Blood Negative Urine Nitrate Negative Urine Bilirubin Negative Urine Urobilinogen 1.0 H Ur Leukocyte Esterase Negative Fingerstick Blood Sugar Results: 416 Assessment/Plan - Assessment and Plan (Free Text) Assessment: This is a 51 yo M with PMH of asthma, DM, CAD, Cardiomyopathy with EF of 37%, HTN, hx of DVT, and gastric bypass 5 years prior who presents with 3 days of gradually worsening SOB, and was admitted to the ICU for respiratory distress/pending failure requiring intubation and mechanical ventilation. He was also noted to meet sepsis criteria, so a Code Sepsis was called while still in the ED. Plan: Neuro: -intubated and sedated on propofol -maintain normothermia -continue to monitor Pulm: -respiratory distress/pending failure requiring intubation, mechanical ventilation; severe asthma exacerbation vs 2/2 possible pneumonia/Sepsis vs PE, possibly multifactorial -currently on 50%/01/16/400 -ABG post-intubation reviewed, f/u AM ABG -VBG lactate on admission notable at 4.5, down to 3.0 on repeat -CXR on admission notable for no active disease; Chest CT obtained and notable for mild cardiomegaly and atherosclerotic disease, bibasliar airspace disease ( atelectasis vs infiltrate with trace effusions), distended upper bowel loops ( illeus vs early obstruction) -PE unlikely as D-dimer in ED negative -Continue nebs q4, solumedrol q12 -Conservative O2 management, maintain SaO2 > 90%, paO2 > 60 -Protective lung ventilation strategies, VAP bundle, Head of bed to 30 degrees, aspiration precautions -Covering for pneumonia empirically with Rocephin and Zithromax, cultures pending Cardio: -hx of cardiomyopathy, EF 37% -Cardio (Dr. Colindres) consulted, appreciate all recs -Echo ordered, f/u -DVT ppx with Lovenox SC daily -Trops negative x2, pending 1 more -EKG in ED notable for sinus tachy, repeat EKG in AM and f/u -Given hx of cardiomyopathy and likely hyperglycemia 2/2 infectious process and/ or steroids (Not DKA), would avoid aggressive IVF hydration at this time GI: -NPO -Protonix for GI ppx -Zofran PRN for nausea/emesis Renal: -Cr 0.8, continue to monitor -Avoid nephrotoxic drugs as feasible -maintain euvoloemia and euglycemia (BG 140-180) -monitor and replete electrolytes as needed; minorly elevated K (5.3) on admission, will likely be resolved as patient on insulin regimen for hyperglycemia -UA only notable for glucose > 1000 Heme: -Hgb 13.3 on admission, f/u -Coags wnl on admission -Lovenox for DVT ppxta ID: -meets code sepsis criteria due to elevated lactate, suspected pneumonia, tachypnea, and tachycardia on presentation -currently empirically covering with Rocephin and zithromax IV -Lactate 4.5 on admission, improved to 3.0 on repeat (VBG lactates) -Blood/Urine cx pending, MRSA swab pending Endo: -Hx diabetes, but not reported as noncompliant in prior charting -elevated blood glucoses may be initially 2/2 infectious process, now 2/2 infection/stress/steroid usage -maintain euglucemia (BG 140-180) -on Humalog 75/25 10units SC BID, Lispro Low-ISS ACHS -elevated BG at 400's on admit, but no gap, so not DKA, would likely be more elevated in [facility] -A1c ordered, f/u (none prior noted in charting) Dispo: ICU, intubated and mechanically ventilated, pending sepsis workup, pending improved respiratory status FEN: NPO Access: Peripheral IV, ETT Consults: Cardio Ppx: Protonix for GI, Lovenox for DVT ppx
[2017-01-09] MEDS: Insulin Reg-LOW-Coverage SC SCH (22:17)
[2017-01-10] MEDS: Albuterol-Ipratrop 3 mg / 0.5 (3 ml) UD IH SCH ×6 (03:34→23:45)
[2017-01-10] MEDS: Propofol 10 mg/ml 1,000 MG/100 ML VIAL IV PRN ×2 (04:29→09:12)
[2017-01-10 05:13] LABS: ADD MANUAL DIFF? NO
[2017-01-10 05:30] LABS: ALB/GLOB RATIO 1.3 (1.1-1.8); ALKALINE PHOSPHATASE 56 U/L (38-133); ALT/SGPT 72 U/L (7-56); AST/SGOT 39 U/L (15-59); BILIRUBIN,TOTAL 0.8 mg/dL (0.2-1.3); BLOOD UREA NITROGEN 16 mg/dL (7-21); CALCIUM 8.8 mg/dL (8.4-10.5); CARBON DIOXIDE 28 mmol/L (21-33); CHLORIDE 100 mmol/L (95-110); GFR AFRICAN-AMERICAN > 60; GLUCOSE,RANDOM 227 mg/dL (70-110); MAGNESIUM 2.6 mg/dL (1.7-2.2); PHOSPHOROUS 5.2 mg/dL (2.5-4.5); POTASSIUM 4.5 mmol/L (3.6-5.0); SODIUM 136 mmol/L (132-148); TOTAL PROTEIN 6.9 g/dL (5.8-8.3)
[2017-01-10 05:32] LABS: ARTERIAL BLOOD GAS HCO3 26.5 mmol/L (21-28); ARTERIAL BLOOD GAS O2 CAPACITY 16.7 mL/dl (16-24); ARTERIAL BLOOD GAS O2 CONTENT 16.6 ML/dl (15-23); ARTERIAL BLOOD GAS PH 7.44 (7.35-7.45); ARTERIAL BLOOD HGB O2 SAT 97.1 % (95.0-98.0); CARBOXYHEMOGLOBIN 1.4 % (0.5-1.5); HHB 0.5 % (0-5); METHEMOGLOBIN 1.1 % (0.0-3.0)
[2017-01-10 05:50] LABS: WHITE BLOOD COUNT 16.1 10^3/ul (4.5-11.0)
[2017-01-10 05:51] LABS: GRAN % 89.3 % (50.0-68.0); HEMATOCRIT 36.7 % (42.0-52.0); LYMPH % 6.7 % (22.0-35.0); MEAN CELL VOLUME 86.8 fL (80.0-105.0); MEAN CORPUSCULAR HEMOGLOBIN 28.4 pg (25.0-35.0); MEAN CORPUSCULAR HGB CONC 32.7 g/dl (31.0-37.0); MEAN PLATELET VOLUME 8.8 fl (7.0-11.0); MONO % 3.9 % (1.0-6.0); PLATELET COUNT 259 10^3/uL (120.0-450.0); RED CELL DISTRIBUTION WIDTH 13.1 % (11.5-14.5)
[2017-01-10 05:52] LABS: BASO # 0.01 K/mm3 (0.0-2.0); BASO % 0.1 % (0.0-3.0); GRAN # 14.37 (1.4-6.5); LYMPH # 1.1 (1.2-3.4); MONO # 0.6 (0.1-0.6)
[2017-01-10 06:27] LABS: TROPONIN I < 0.01 ng/mL
[2017-01-10] MEDS: Insulin Reg-LOW-Coverage SC SCH ×4 (08:30→22:05)
[2017-01-10] MEDS: Azithromycin 500MG/NS 250ml 500 MG/250 ML BAG IVPB SCH (09:18)
[2017-01-10] MEDS: cefTRIAXone 1 gm 1 GM/100 ML BAG IVPB SCH (09:18)
--- NOTE | 2017-01-10 09:34 | RAD ---
HISTORY: intubated, f/u COMPARISON: 01/09/2017 FINDINGS: LUNGS: No active pulmonary disease. PLEURA: No significant pleural effusion identified, no pneumothorax apparent. CARDIOVASCULAR: Normal. OSSEOUS STRUCTURES: No significant abnormalities. VISUALIZED UPPER ABDOMEN: Normal. OTHER FINDINGS: Endotracheal tube in satisfactory position. Left IJ line in the brachiocephalic vein on the left. No pneumothorax IMPRESSION: No active disease.
[2017-01-10] MEDS: Enoxaparin 40 mg Syringe SC SCH (10:00)
--- NOTE | 2017-01-10 10:47 | CON ---
DATE: 01/10/2017 HISTORY OF PRESENT ILLNESS: The patient is a 51-year-old male who presents with respiratory distress . He required intubation. There was bronchospasm noted. PAST MEDICAL HISTORY: Includes cardiac evaluation, which included a cardiac catheterization performe d 1 year ago, which revealed a dilated cardiomyopathy with an EF of 35%-40%. There was diffuse coron maria d atherosclerosis without critical lesions. The patient's past medical history also includes diabetes mellitus, hypertension and hypercholesterol emia. SOCIAL HISTORY: The patient denies active smoking. REVIEW OF SYSTEMS: A 14-point was reviewed. Other than his dyspnea, no other cardiac symptomatology is noted. PHYSICAL EXAMINATION: GENERAL: The patient is on a ventilator, blood pressure is 120/80, the heart rate is in the 90s. NECK: Negative JVD. LUNGS: Decreased breath sounds without rales, no wheezing is noted. HEART: Reveals S1, S2. EXTREMITIES: Without edema. LABORATORIES: Includes an EKG that is unremarkable. The glucose is 227. Troponins are negative x 2 . Hemoglobin is 12.6. IMPRESSION: 1. Respiratory failure. 2. No evidence for a cardiac contribution to his dyspnea. 3. Dilated cardiomyopathy. 4. Nonobstructive coronary artery disease. 5. Diabetes mellitus. 6. Hypertension. Given these findings, I agree with continuing bronchodilators and continue attempts at weaning him of f the respirator. We will repeat the BNP. Solis Smith MD cc: [id number] TT: 01/10/2017 10:46:12 Confirmation # [id number] Dictation # [id number] en
--- NOTE | 2017-01-10 13:07 | CP.CCUPN ---
CCU Subjective - Physician Review Events Since Last Encounter (Free Text): 01/10/17 13:06 Pt s/e at bedside in the CCU. NAEO. Patient is alert, awake, and oriented, able to answer yes and no questions. Patient states that he is anxious and experiences a chest tightness on the right and feels like he can't take a deep breath. Patient reports right sided abdominal pain with recent diarrhea, but denies nausea, vomiting, fever, chills, hematochezia, melena or any other symptoms. CCU Objective - Vital Signs / Intake & Output Vital Signs (Last 4 hours): Vital Signs Pulse BP Pulse Ox 01/10/17 11:20 99 H 98 01/10/17 11:10 100 H 99 01/10/17 11:00 99 H 116/73 98 01/10/17 10:50 103 H 99 01/10/17 10:40 100 H 98 01/10/17 10:35 101 H 117/75 92 L 01/10/17 10:30 104 H 99 01/10/17 10:20 103 H 98 01/10/17 10:10 101 H 99 01/10/17 10:00 95 H 98 01/10/17 09:50 107 H 98 01/10/17 09:40 98 H 99 01/10/17 09:30 90 98 01/10/17 09:20 91 H 98 01/10/17 09:10 91 H 98 Intake and Output (Last 8hrs): Intake & Output 01/09/17 01/10/17 01/10/17 22:59 06:59 14:59 Intake Total 160 455 100 Output Total 300 1000 Balance -140 -545 100 Weight 80.739 kg Intake: IV 160 455 100 Left Forearm 45 355 Left Hand 15 Oral 0 Output: Urine 300 1000 Urethral (Dubose) 300 1000 Other: Voiding Method Indwelling Catheter Indwelling Catheter # Bowel Movements 0 - Physical Exam Head: Positive for: Atraumatic, Normocephalic Pupils: Positive for: PERRL Extroacular Muscles: Positive for: EOMI Conjunctiva: Positive for: Normal Ears: Positive for: Normal Nose (External): Positive for: Atraumatic Respiratory/Chest: Positive for: Good Air Exchange, Accessory Muscle Use, Rhonchi (Left upper lung sounds), Tender to Palpation (in the right lower central and lateral chest). Negative for: Wheezes, Rales Cardiovascular: Positive for: Normal S1, S2, Peripheal Pulses Present, Tachycardic. Negative for: Murmurs, Irregular Rhythm (regular rhythm) Abdomen: Positive for: Tenderness (Moderate tenderness RUQ>RLQ), Normal Bowel Sounds. Negative for: Distention, Peritoneal Signs Upper Extremity: Positive for: Normal Inspection. Negative for: Cyanosis, Edema Lower Extremity: Positive for: Normal Inspection, NORMAL PULSES. Negative for: Edema, CALF TENDERNESS Neurological: Positive for: GCS=15. Negative for: CN II-XII Intact (Patient reports decreased sensation in the Right facial nerve distribution compared to the left, other CN's intact) - Medications Active Medications: Active Medications Generic Name Dose Route Start Last Admin Trade Name Freq PRN Reason Stop Dose Admin Acetaminophen 650 mg 01/10/17 08:04 Tylenol 325mg Tab PO Q6 PRN Fever >100.4 F Albuterol/Ipratropium 3 ml 01/09/17 19:30 01/10/17 11:10 Duoneb 3 Mg/0.5 Mg (3 Ml) Ud IH 3 ml [id number] ENE Administration Enoxaparin Sodium 40 mg 01/09/17 17:30 01/09/17 18:16 Lovenox SC 40 mg DAILY ENE Administration Protocol Ceftriaxone Sodium 1 gm in 100 mls @ 100 mls/hr 01/10/17 10:00 01/10/17 09:18 Rocephin 1 Gram Ivpb IVPB 100 mls/hr DAILY ENE Administration Protocol Azithromycin 500 mg in 250 mls @ 167 mls/hr 01/10/17 10:00 01/10/17 09:18 Zithromax 500mg In Ns IVPB 167 mls/hr DAILY ENE Administration Protocol Propofol 1,000 mg in 100 mls @ 2.422 mls/hr 01/09/17 18:08 01/10/17 09:12 Diprivan IV 40 mcg/kg/min .Q24H PRN 19.377 mls/hr TITRATE PER MD ORDER Administration Protocol 5 MCG/KG/MIN Insulin Human Regular 0 units 01/09/17 22:00 01/10/17 08:30 Humulin R Low SC 1 units ACHS ENE Administration Protocol Insulin Lispro Protam/Lispro Human 10 units 01/09/17 18:00 01/09/17 18:14 Humalog Mix 75/25 SC 10 units BID ENE Administration Lorazepam 1 mg 01/10/17 09:26 Ativan IVP Q3 PRN Anxiety Protocol Methylprednisolone 60 mg 01/09/17 22:00 01/10/17 09:17 Solu-Medrol IVP 60 mg Q12 ENE Administration Ondansetron HCl 4 mg 01/09/17 17:01 Zofran Inj IVP Q4H PRN Nausea/Vomiting Pantoprazole Sodium 40 mg 01/09/17 17:15 01/10/17 09:17 Protonix Inj IVP 40 mg DAILY ENE Administration - Patient Studies Lab Studies: Lab Studies 01/10/17 01/10/17 01/10/17 Range/Units 10:01 05:00 05:00 WBC (4.5-11.0) 10^3/ul RBC (3.5-6.1) 10^6/uL Hgb (14.0-18.0) gm/dL Hct (42.0-52.0) % MCV (80.0-105.0) fL MCH (25.0-35.0) pg MCHC (31.0-37.0) g/dl RDW (11.5-14.5) % Plt Count (120.0-450.0) 10^3/uL MPV (7.0-11.0) fl Gran % (50.0-68.0) % Lymph % (Auto) (22.0-35.0) % [place] % (Auto) (1.0-6.0) % Eos % (Auto) (1.5-5.0) % Baso % (Auto) (0.0-3.0) % Gran # (1.4-6.5) Lymph # (1.2-3.4) [place] # (0.1-0.6) Eos # (0.0-0.7) Baso # (0.0-2.0) K/mm3 pCO2 39 (35-45) mm/Hg pO2 225.0 H (30-55) mm/Hg HCO3 26.5 (21-28) mmol/L ABG pH 7.44 (7.35-7.45) ABG Total CO2 27.7 (22-28) mmol.L ABG O2 Saturation 99.5 H (95-98) % ABG O2 Content 16.6 (15-23) ML/dl ABG Base Excess 2.2 (-2.0-3.0) mmol/L ABG Hemoglobin 11.8 (11.7-17.4) g/dL ABG Carboxyhemoglobin 1.4 (0.5-1.5) % POC ABG HHb (Measured) 0.5 (0-5) % ABG Methemoglobin 1.1 (0.0-3.0) % ABG O2 Capacity 16.7 (16-24) mL/dl VBG pH (7.32-7.43) VBG pCO2 (40-60) VBG HCO3 (21-28) mmol/l VBG Total CO2 (22-28) mmol.L VBG O2 Sat (Calc) (40-65) % VBG Base Excess (0.0-2.0) mmol/L VBG Potassium (3.6-5.2) mmol/L Hgb O2 Saturation 97.1 (95.0-98.0) % Sodium (132-148) mmol/L Chloride (98-107) mmol/L Glucose (75-110) mg/dl Lactate (0.7-2.1) mmol/L FiO2 50.0 % Potassium (3.6-5.0) mmol/L Carbon Dioxide (21-33) mmol/L Anion Gap (10-20) BUN (7-21) mg/dL Creatinine (0.5-1.4) mg/dL Est GFR ( Amer) Est GFR (Non-Af Amer) POC Glucose (mg/dL) (65-110) mg/dL Random Glucose (70-110) mg/dL Lactic Acid 0.9 (0.7-2.1) mmol/L Calcium (8.4-10.5) mg/dL Phosphorus (2.5-4.5) mg/dL Magnesium (1.7-2.2) mg/dL Total Bilirubin (0.2-1.3) mg/dL AST (15-59) U/L ALT (7-56) U/L Alkaline Phosphatase (38-133) U/L Lactate Dehydrogenase (333-699) U/L Total Creatine Kinase (35-230) U/L Troponin I ng/mL NT-Pro-B Natriuret Pep 117 (0-450) pg/mL Total Protein (5.8-8.3) g/dL Albumin (3.0-4.8) g/dL Globulin gm/dL Albumin/Globulin Ratio (1.1-1.8) Venous Blood Potassium (3.6-5.2) mmol/L Urine Color (YELLOW) Urine Appearance (CLEAR) Urine pH (4.7-8.0) Ur Specific [place] (1.005-1.035) Urine Protein (<30 mg/dL) mg/dL Urine Glucose (UA) (NEGATIVE) mg/dL Urine Ketones (NEGATIVE) mg/dL Urine Blood (NEGATIVE) Urine Nitrate (NEGATIVE) Urine Bilirubin (NEGATIVE) Urine Urobilinogen (<1 E.U./dL) E.U./dL Ur Leukocyte Esterase (NEGATIVE) Krystian/uL 01/10/17 01/10/17 01/09/17 Range/Units 05:00 05:00 22:12 WBC 16.1 H D (4.5-11.0) 10^3/ul RBC 4.23 (3.5-6.1) 10^6/uL Hgb 12.0 L (14.0-18.0) gm/dL Hct 36.7 L (42.0-52.0) % MCV 86.8 (80.0-105.0) fL MCH 28.4 (25.0-35.0) pg MCHC 32.7 (31.0-37.0) g/dl RDW 13.1 (11.5-14.5) % Plt Count 259 (120.0-450.0) 10^3/uL MPV 8.8 (7.0-11.0) fl Gran % 89.3 H (50.0-68.0) % Lymph % (Auto) 6.7 L (22.0-35.0) % [place] % (Auto) 3.9 (1.0-6.0) % Eos % (Auto) 0.0 L (1.5-5.0) % Baso % (Auto) 0.1 (0.0-3.0) % Gran # 14.37 H (1.4-6.5) Lymph # 1.1 L (1.2-3.4) [place] # 0.6 (0.1-0.6) Eos # 0.0 (0.0-0.7) Baso # 0.01 (0.0-2.0) K/mm3 pCO2 (35-45) mm/Hg pO2 (30-55) mm/Hg HCO3 (21-28) mmol/L ABG pH (7.35-7.45) ABG Total CO2 (22-28) mmol.L ABG O2 Saturation (95-98) % ABG O2 Content (15-23) ML/dl ABG Base Excess (-2.0-3.0) mmol/L ABG Hemoglobin (11.7-17.4) g/dL ABG Carboxyhemoglobin (0.5-1.5) % POC ABG HHb (Measured) (0-5) % ABG Methemoglobin (0.0-3.0) % ABG O2 Capacity (16-24) mL/dl VBG pH (7.32-7.43) VBG pCO2 (40-60) VBG HCO3 (21-28) mmol/l VBG Total CO2 (22-28) mmol.L VBG O2 Sat (Calc) (40-65) % VBG Base Excess (0.0-2.0) mmol/L VBG Potassium (3.6-5.2) mmol/L Hgb O2 Saturation (95.0-98.0) % Sodium 136 (132-148) mmol/L Chloride 100 (98-107) mmol/L Glucose (75-110) mg/dl Lactate (0.7-2.1) mmol/L FiO2 % Potassium 4.5 (3.6-5.0) mmol/L Carbon Dioxide 28 (21-33) mmol/L Anion Gap 13 (10-20) BUN 16 (7-21) mg/dL Creatinine 0.6 (0.5-1.4) mg/dL Est GFR ( Amer) > 60 Est GFR (Non-Af Amer) > 60 POC Glucose (mg/dL) 244 H (65-110) mg/dL Random Glucose 227 H (70-110) mg/dL Lactic Acid (0.7-2.1) mmol/L Calcium 8.8 (8.4-10.5) mg/dL Phosphorus 5.2 H (2.5-4.5) mg/dL Magnesium 2.6 H (1.7-2.2) mg/dL Total Bilirubin 0.8 (0.2-1.3) mg/dL AST 39 (15-59) U/L ALT 72 H (7-56) U/L Alkaline Phosphatase 56 (38-133) U/L Lactate Dehydrogenase 446 (333-699) U/L Total Creatine Kinase 142 (35-230) U/L Troponin I < 0.01 ng/mL NT-Pro-B Natriuret Pep (0-450) pg/mL Total Protein 6.9 (5.8-8.3) g/dL Albumin 3.9 (3.0-4.8) g/dL Globulin 3.0 gm/dL Albumin/Globulin Ratio 1.3 (1.1-1.8) Venous Blood Potassium (3.6-5.2) mmol/L Urine Color (YELLOW) Urine Appearance (CLEAR) Urine pH (4.7-8.0) Ur Specific [place] (1.005-1.035) Urine Protein (<30 mg/dL) mg/dL Urine Glucose (UA) (NEGATIVE) mg/dL Urine Ketones (NEGATIVE) mg/dL Urine Blood (NEGATIVE) Urine Nitrate (NEGATIVE) Urine Bilirubin (NEGATIVE) Urine Urobilinogen (<1 E.U./dL) E.U./dL Ur Leukocyte Esterase (NEGATIVE) Krystian/uL 01/09/17 01/09/17 01/09/17 Range/Units 19:25 18:06 17:50 WBC (4.5-11.0) 10^3/ul RBC (3.5-6.1) 10^6/uL Hgb (14.0-18.0) gm/dL Hct (42.0-52.0) % MCV (80.0-105.0) fL MCH (25.0-35.0) pg MCHC (31.0-37.0) g/dl RDW (11.5-14.5) % Plt Count (120.0-450.0) 10^3/uL MPV (7.0-11.0) fl Gran % (50.0-68.0) % Lymph % (Auto) (22.0-35.0) % [place] % (Auto) (1.0-6.0) % Eos % (Auto) (1.5-5.0) % Baso % (Auto) (0.0-3.0) % Gran # (1.4-6.5) Lymph # (1.2-3.4) [place] # (0.1-0.6) Eos # (0.0-0.7) Baso # (0.0-2.0) K/mm3 pCO2 (35-45) mm/Hg pO2 132 H (30-55) mm/Hg HCO3 (21-28) mmol/L ABG pH (7.35-7.45) ABG Total CO2 (22-28) mmol.L ABG O2 Saturation (95-98) % ABG O2 Content (15-23) ML/dl ABG Base Excess (-2.0-3.0) mmol/L ABG Hemoglobin (11.7-17.4) g/dL ABG Carboxyhemoglobin (0.5-1.5) % POC ABG HHb (Measured) (0-5) % ABG Methemoglobin (0.0-3.0) % ABG O2 Capacity (16-24) mL/dl VBG pH 7.35 (7.32-7.43) VBG pCO2 48.0 (40-60) VBG HCO3 26.5 (21-28) mmol/l VBG Total CO2 28.0 (22-28) mmol.L VBG O2 Sat (Calc) 99.1 H (40-65) % VBG Base Excess 0.3 (0.0-2.0) mmol/L VBG Potassium 4.6 (3.6-5.2) mmol/L Hgb O2 Saturation (95.0-98.0) % Sodium 137.0 (132-148) mmol/L Chloride 105.0 (98-107) mmol/L Glucose 340 H (75-110) mg/dl Lactate 3.0 H (0.7-2.1) mmol/L FiO2 21.0 % Potassium (3.6-5.0) mmol/L Carbon Dioxide (21-33) mmol/L Anion Gap (10-20) BUN (7-21) mg/dL Creatinine (0.5-1.4) mg/dL Est GFR ( Amer) Est GFR (Non-Af Amer) POC Glucose (mg/dL) 293 H (65-110) mg/dL Random Glucose (70-110) mg/dL Lactic Acid (0.7-2.1) mmol/L Calcium (8.4-10.5) mg/dL Phosphorus (2.5-4.5) mg/dL Magnesium (1.7-2.2) mg/dL Total Bilirubin (0.2-1.3) mg/dL AST (15-59) U/L ALT (7-56) U/L Alkaline Phosphatase (38-133) U/L Lactate Dehydrogenase 533 (333-699) U/L Total Creatine Kinase 137 (35-230) U/L Troponin I < 0.01 ng/mL NT-Pro-B Natriuret Pep (0-450) pg/mL Total Protein (5.8-8.3) g/dL Albumin (3.0-4.8) g/dL Globulin gm/dL Albumin/Globulin Ratio (1.1-1.8) Venous Blood Potassium 4.6 (3.6-5.2) mmol/L Urine Color (YELLOW) Urine Appearance (CLEAR) Urine pH (4.7-8.0) Ur Specific [place] (1.005-1.035) Urine Protein (<30 mg/dL) mg/dL Urine Glucose (UA) (NEGATIVE) mg/dL Urine Ketones (NEGATIVE) mg/dL Urine Blood (NEGATIVE) Urine Nitrate (NEGATIVE) Urine Bilirubin (NEGATIVE) Urine Urobilinogen (<1 E.U./dL) E.U./dL Ur Leukocyte Esterase (NEGATIVE) Krystian/uL 01/09/17 Range/Units 15:05 WBC (4.5-11.0) 10^3/ul RBC (3.5-6.1) 10^6/uL Hgb (14.0-18.0) gm/dL Hct (42.0-52.0) % MCV (80.0-105.0) fL MCH (25.0-35.0) pg MCHC (31.0-37.0) g/dl RDW (11.5-14.5) % Plt Count (120.0-450.0) 10^3/uL MPV (7.0-11.0) fl Gran % (50.0-68.0) % Lymph % (Auto) (22.0-35.0) % [place] % (Auto) (1.0-6.0) % Eos % (Auto) (1.5-5.0) % Baso % (Auto) (0.0-3.0) % Gran # (1.4-6.5) Lymph # (1.2-3.4) [place] # (0.1-0.6) Eos # (0.0-0.7) Baso # (0.0-2.0) K/mm3 pCO2 (35-45) mm/Hg pO2 (30-55) mm/Hg HCO3 (21-28) mmol/L ABG pH (7.35-7.45) ABG Total CO2 (22-28) mmol.L ABG O2 Saturation (95-98) % ABG O2 Content (15-23) ML/dl ABG Base Excess (-2.0-3.0) mmol/L ABG Hemoglobin (11.7-17.4) g/dL ABG Carboxyhemoglobin (0.5-1.5) % POC ABG HHb (Measured) (0-5) % ABG Methemoglobin (0.0-3.0) % ABG O2 Capacity (16-24) mL/dl VBG pH (7.32-7.43) VBG pCO2 (40-60) VBG HCO3 (21-28) mmol/l VBG Total CO2 (22-28) mmol.L VBG O2 Sat (Calc) (40-65) % VBG Base Excess (0.0-2.0) mmol/L VBG Potassium (3.6-5.2) mmol/L Hgb O2 Saturation (95.0-98.0) % Sodium (132-148) mmol/L Chloride (98-107) mmol/L Glucose (75-110) mg/dl Lactate (0.7-2.1) mmol/L FiO2 % Potassium (3.6-5.0) mmol/L Carbon Dioxide (21-33) mmol/L Anion Gap (10-20) BUN (7-21) mg/dL Creatinine (0.5-1.4) mg/dL Est GFR ( Amer) Est GFR (Non-Af Amer) POC Glucose (mg/dL) (65-110) mg/dL Random Glucose (70-110) mg/dL Lactic Acid (0.7-2.1) mmol/L Calcium (8.4-10.5) mg/dL Phosphorus (2.5-4.5) mg/dL Magnesium (1.7-2.2) mg/dL Total Bilirubin (0.2-1.3) mg/dL AST (15-59) U/L ALT (7-56) U/L Alkaline Phosphatase (38-133) U/L Lactate Dehydrogenase (333-699) U/L Total Creatine Kinase (35-230) U/L Troponin I ng/mL NT-Pro-B Natriuret Pep (0-450) pg/mL Total Protein (5.8-8.3) g/dL Albumin (3.0-4.8) g/dL Globulin gm/dL Albumin/Globulin Ratio (1.1-1.8) Venous Blood Potassium (3.6-5.2) mmol/L Urine Color Straw (YELLOW) Urine Appearance Clear (CLEAR) Urine pH 6.5 (4.7-8.0) Ur Specific [place] 1.015 (1.005-1.035) Urine Protein Negative (<30 mg/dL) mg/dL Urine Glucose (UA) >=1000 (NEGATIVE) mg/dL Urine Ketones Negative (NEGATIVE) mg/dL Urine Blood Negative (NEGATIVE) Urine Nitrate Negative (NEGATIVE) Urine Bilirubin Negative (NEGATIVE) Urine Urobilinogen 1.0 H (<1 E.U./dL) E.U./dL Ur Leukocyte Esterase Negative (NEGATIVE) Krystian/uL Laboratory Results - last 24 hr 01/09/17 01/09/17 01/09/17 15:05 17:50 18:06 WBC RBC Hgb Hct MCV MCH MCHC RDW Plt Count MPV Gran % Lymph % (Auto) [place] % (Auto) Eos % (Auto) Baso % (Auto) Gran # Lymph # [place] # Eos # Baso # pCO2 pO2 132 H HCO3 ABG pH ABG Total CO2 ABG O2 Saturation ABG O2 Content ABG Base Excess ABG Hemoglobin ABG Carboxyhemoglobin POC ABG HHb (Measured) ABG Methemoglobin ABG O2 Capacity VBG pH 7.35 VBG pCO2 48.0 VBG HCO3 26.5 VBG Total CO2 28.0 VBG O2 Sat (Calc) 99.1 H VBG Base Excess 0.3 VBG Potassium 4.6 Hgb O2 Saturation Sodium 137.0 Chloride 105.0 Glucose 340 H Lactate 3.0 H FiO2 21.0 Potassium Carbon Dioxide Anion Gap BUN Creatinine Est GFR ( Amer) Est GFR (Non-Af Amer) POC Glucose (mg/dL) 293 H Random Glucose Lactic Acid Calcium Phosphorus Magnesium Total Bilirubin AST ALT Alkaline Phosphatase Lactate Dehydrogenase Total Creatine Kinase Troponin I NT-Pro-B Natriuret Pep Total Protein Albumin Globulin Albumin/Globulin Ratio Venous Blood Potassium 4.6 Urine Color Straw Urine Appearance Clear Urine pH 6.5 Ur Specific [place] 1.015 Urine Protein Negative Urine Glucose (UA) >=1000 Urine Ketones Negative Urine Blood Negative Urine Nitrate Negative Urine Bilirubin Negative Urine Urobilinogen 1.0 H Ur Leukocyte Esterase Negative 01/09/17 01/09/17 01/10/17 19:25 22:12 05:00 WBC RBC Hgb Hct MCV MCH MCHC RDW Plt Count MPV Gran % Lymph % (Auto) [place] % (Auto) Eos % (Auto) Baso % (Auto) Gran # Lymph # [place] # Eos # Baso # pCO2 pO2 HCO3 ABG pH ABG Total CO2 ABG O2 Saturation ABG O2 Content ABG Base Excess ABG Hemoglobin ABG Carboxyhemoglobin POC ABG HHb (Measured) ABG Methemoglobin ABG O2 Capacity VBG pH VBG pCO2 VBG HCO3 VBG Total CO2 VBG O2 Sat (Calc) VBG Base Excess VBG Potassium Hgb O2 Saturation Sodium 136 Chloride 100 Glucose Lactate FiO2 Potassium 4.5 Carbon Dioxide 28 Anion Gap 13 BUN 16 Creatinine 0.6 Est GFR ( Amer) > 60 Est GFR (Non-Af Amer) > 60 POC Glucose (mg/dL) 244 H Random Glucose 227 H Lactic Acid Calcium 8.8 Phosphorus 5.2 H Magnesium 2.6 H Total Bilirubin 0.8 AST 39 ALT 72 H Alkaline Phosphatase 56 Lactate Dehydrogenase 533 446 Total Creatine Kinase 137 142 Troponin I < 0.01 < 0.01 NT-Pro-B Natriuret Pep Total Protein 6.9 Albumin 3.9 Globulin 3.0 Albumin/Globulin Ratio 1.3 Venous Blood Potassium Urine Color Urine Appearance Urine pH Ur Specific [place] Urine Protein Urine Glucose (UA) Urine Ketones Urine Blood Urine Nitrate Urine Bilirubin Urine Urobilinogen Ur Leukocyte Esterase 01/10/17 01/10/17 01/10/17 05:00 05:00 05:00 WBC 16.1 H D RBC 4.23 Hgb 12.0 L Hct 36.7 L MCV 86.8 MCH 28.4 MCHC 32.7 RDW 13.1 Plt Count 259 MPV 8.8 Gran % 89.3 H Lymph % (Auto) 6.7 L [place] % (Auto) 3.9 Eos % (Auto) 0.0 L Baso % (Auto) 0.1 Gran # 14.37 H Lymph # 1.1 L [place] # 0.6 Eos # 0.0 Baso # 0.01 pCO2 39 pO2 225.0 H HCO3 26.5 ABG pH 7.44 ABG Total CO2 27.7 ABG O2 Saturation 99.5 H ABG O2 Content 16.6 ABG Base Excess 2.2 ABG Hemoglobin 11.8 ABG Carboxyhemoglobin 1.4 POC ABG HHb (Measured) 0.5 ABG Methemoglobin 1.1 ABG O2 Capacity 16.7 VBG pH VBG pCO2 VBG HCO3 VBG Total CO2 VBG O2 Sat (Calc) VBG Base Excess VBG Potassium Hgb O2 Saturation 97.1 Sodium Chloride Glucose Lactate FiO2 50.0 Potassium Carbon Dioxide Anion Gap BUN Creatinine Est GFR ( Amer) Est GFR (Non-Af Amer) POC Glucose (mg/dL) Random Glucose Lactic Acid 0.9 Calcium Phosphorus Magnesium Total Bilirubin AST ALT Alkaline Phosphatase Lactate Dehydrogenase Total Creatine Kinase Troponin I NT-Pro-B Natriuret Pep Total Protein Albumin Globulin Albumin/Globulin Ratio Venous Blood Potassium Urine Color Urine Appearance Urine pH Ur Specific [place] Urine Protein Urine Glucose (UA) Urine Ketones Urine Blood Urine Nitrate Urine Bilirubin Urine Urobilinogen Ur Leukocyte Esterase 01/10/17 10:01 WBC RBC Hgb Hct MCV MCH MCHC RDW Plt Count MPV Gran % Lymph % (Auto) [place] % (Auto) Eos % (Auto) Baso % (Auto) Gran # Lymph # [place] # Eos # Baso # pCO2 pO2 HCO3 ABG pH ABG Total CO2 ABG O2 Saturation ABG O2 Content ABG Base Excess ABG Hemoglobin ABG Carboxyhemoglobin POC ABG HHb (Measured) ABG Methemoglobin ABG O2 Capacity VBG pH VBG pCO2 VBG HCO3 VBG Total CO2 VBG O2 Sat (Calc) VBG Base Excess VBG Potassium Hgb O2 Saturation Sodium Chloride Glucose Lactate FiO2 Potassium Carbon Dioxide Anion Gap BUN Creatinine Est GFR ( Amer) Est GFR (Non-Af Amer) POC Glucose (mg/dL) Random Glucose Lactic Acid Calcium Phosphorus Magnesium Total Bilirubin AST ALT Alkaline Phosphatase Lactate Dehydrogenase Total Creatine Kinase Troponin I NT-Pro-B Natriuret Pep 117 Total Protein Albumin Globulin Albumin/Globulin Ratio Venous Blood Potassium Urine Color Urine Appearance Urine pH Ur Specific [place] Urine Protein Urine Glucose (UA) Urine Ketones Urine Blood Urine Nitrate Urine Bilirubin Urine Urobilinogen Ur Leukocyte Esterase Fingerstick Blood Sugar Results: 171
--- NOTE | 2017-01-10 14:15 | CP.PCM.PN ---
<Nancy Viramontes - Last Filed: 01/10/17 14:10> Subjective - Date & Time of Evaluation Date of Evaluation: 01/10/17 Time of Evaluation: 14:10 - Subjective Subjective: HOSPITALIST PROGRESS NOTE Pt is seen and examined at bedside. Patient was intubated during examination but responding to commands and alert and awake. is at bedside. Patient denies having any CP, SOB, abd pain, N/V. Objective - Vital Signs/Intake and Output Vital Signs (last 24 hours): Temp Pulse Resp BP Pulse Ox 98.1 F 99 H 20 116/73 98 01/10/17 07:40 01/10/17 11:20 01/10/17 07:40 01/10/17 11:00 01/10/17 11:20 Intake and Output: 01/10/17 01/10/17 06:59 18:59 Intake Total 455 100 Output Total 1000 Balance -545 100 - Medications Medications: Current Medications Acetaminophen (Tylenol 325mg Tab) 650 mg PO Q6 PRN PRN Reason: Fever >100.4 F Albuterol/Ipratropium (Duoneb 3 Mg/0.5 Mg (3 Ml) Ud) 3 ml IH [id number] ENE Last Admin: 01/10/17 11:10 Dose: 3 ml Aspirin (Ecotrin) 81 mg PO DAILY ENE Clopidogrel Bisulfate (Plavix) 75 mg PO DAILY ENE Enoxaparin Sodium (Lovenox) 40 mg SC DAILY ENE PRN Reason: Protocol Last Admin: 01/09/17 18:16 Dose: 40 mg Ceftriaxone Sodium (Rocephin 1 Gram Ivpb) 1 gm in 100 mls @ 100 mls/hr IVPB DAILY ENE PRN Reason: Protocol Last Admin: 01/10/17 09:18 Dose: 100 mls/hr Azithromycin (Zithromax 500mg In Ns) 500 mg in 250 mls @ 167 mls/hr IVPB DAILY ENE PRN Reason: Protocol Last Admin: 01/10/17 09:18 Dose: 167 mls/hr Propofol (Diprivan) 1,000 mg in 100 mls @ 2.422 mls/hr IV .Q24H PRN; Protocol; 5 MCG/KG/MIN PRN Reason: TITRATE PER MD ORDER Last Admin: 01/10/17 09:12 Dose: 40 mcg/kg/min, 19.377 mls/hr Insulin Human Regular (Humulin R Low) 0 units SC ACHS ENE PRN Reason: Protocol Last Admin: 01/10/17 08:30 Dose: 1 units Insulin Lispro Protam/Lispro Human (Humalog Mix 75/25) 10 units SC BID [facility] Last Admin: 01/09/17 18:14 Dose: 10 units Lorazepam (Ativan) 1 mg IVP Q3 PRN; Protocol PRN Reason: Anxiety Methylprednisolone (Solu-Medrol) 60 mg IVP Q12 [facility] Last Admin: 01/10/17 09:17 Dose: 60 mg Montelukast Sodium (Singulair) 10 mg PO DAILY [facility] Non-Formulary Medication (Rosuvastatin Calcium [Crestor]) 10 mg PO DAILY [facility] Non-Formulary Medication (Valsartan [Diovan]) 40 mg PO DAILY [facility] Ondansetron HCl (Zofran Inj) 4 mg IVP Q4H PRN PRN Reason: Nausea/Vomiting Pantoprazole Sodium (Protonix Inj) 40 mg IVP DAILY [facility] Last Admin: 01/10/17 09:17 Dose: 40 mg - Labs Labs: 01/10/17 05:00 01/10/17 05:00 PT 10.7 Seconds (9.9-11.8) 01/09/17 14:18 INR 0.99 (0.93-1.08) 01/09/17 14:18 APTT 25.8 Seconds (23.7-30.8) 01/09/17 14:18 - Constitutional Appears: Non-toxic - Head Exam Head Exam: ATRAUMATIC - Respiratory Exam Respiratory Exam: absent: Accessory Muscle Use, Rales, Rhonchi, Wheezes - Cardiovascular Exam Cardiovascular Exam: Tachycardia, +S1, +S2 - GI/Abdominal Exam GI & Abdominal Exam: Soft, Normal Bowel Sounds. absent: Distended, Firm, Guarding, Rigid, Tenderness - Extremities Exam Extremities Exam: absent: Pedal Edema, Tenderness - Neurological Exam Neurological Exam: Alert, Awake, Oriented x3 - Psychiatric Exam Psychiatric exam: Normal Affect, Normal Mood - Skin Skin Exam: Dry, Intact, Normal Color, Warm Assessment and Plan - Assessment and Plan (Free Text) Assessment: 51 yo M w/ PMHx of asthma, IDDM, systolic heart failure with EF of 37%, HTN, DVT x1 10 yrs ago, and gastric bypass 5 years prior, CAD, presents with 3 days of gradually worsening SOB. Patient is extubated this morning. Respiratory distress likely 2/2 asthma exacerbation vs. COPD exacerbation: Duoneb treatment 4 4 prn ceftriaxone 1gm IVPB qd azithromycin 500 mg IVPb qd solumedrol 60 mg IV q12 Will check procal level D dimer was negative Will restart home singulair CAD Will restart home meds plavix, aspirin crestor and diovan Trops x 3 negative ProBNP was WNL Cardiomyopathy: Cardiac consult Will follow up echo results initial troponin negative DM: ISS low humalog mix 75/25 14 u sc BID Will check [id number] achs accuchecks Will hold home PO hypoglycemic medications history of DVT Continue home meds aspirin and plavix ppx measures lovenox 40 protonix IV zofran 4mg q4 IV prn Case discussed with attending, Dr. Obregon <Karlee Obregon - Last Filed: 01/10/17 17:26> Objective - Vital Signs/Intake and Output Vital Signs (last 24 hours): Temp Pulse Resp BP Pulse Ox 98 F 90 22 122/69 98 01/10/17 16:00 01/10/17 16:00 01/10/17 16:00 01/10/17 16:00 01/10/17 16:00 Intake and Output: 01/10/17 01/10/17 06:59 18:59 Intake Total 455 100 Output Total 1000 Balance -545 100 - Medications Medications: Current Medications Acetaminophen (Tylenol 325mg Tab) 650 mg PO Q6 PRN PRN Reason: Fever >100.4 F Albuterol/Ipratropium (Duoneb 3 Mg/0.5 Mg (3 Ml) Ud) 3 ml IH [id number] ENE Last Admin: 01/10/17 16:23 Dose: 3 ml Albuterol/Ipratropium (Duoneb 3 Mg/0.5 Mg (3 Ml) Ud) 3 ml IH Q2H PRN PRN Reason: Shortness of Breath Last Admin: 01/10/17 14:23 Dose: 3 ml Aspirin (Ecotrin) 81 mg PO DAILY [facility] Atorvastatin Calcium (Lipitor) 40 mg PO DIN ENE Clopidogrel Bisulfate (Plavix) 75 mg PO DAILY [facility] Enoxaparin Sodium (Lovenox) 40 mg SC DAILY ENE PRN Reason: Protocol Last Admin: 01/10/17 10:00 Dose: 40 mg Ceftriaxone Sodium (Rocephin 1 Gram Ivpb) 1 gm in 100 mls @ 100 mls/hr IVPB DAILY ENE PRN Reason: Protocol Last Admin: 01/10/17 09:18 Dose: 100 mls/hr Azithromycin (Zithromax 500mg In Ns) 500 mg in 250 mls @ 167 mls/hr IVPB DAILY ENE PRN Reason: Protocol Last Admin: 01/10/17 09:18 Dose: 167 mls/hr Insulin Human Regular (Humulin R Low) 0 units SC ACHS ENE PRN Reason: Protocol Last Admin: 01/10/17 12:00 Dose: 1 units Insulin Lispro Protam/Lispro Human (Humalog Mix 75/25) 14 units SC BID ENE Lorazepam (Ativan) 1 mg IVP Q3 PRN; Protocol PRN Reason: Anxiety Losartan Potassium (Cozaar) 25 mg PO DAILY [facility] Methylprednisolone (Solu-Medrol) 60 mg IVP Q12 [facility] Last Admin: 01/10/17 09:17 Dose: 60 mg Montelukast Sodium (Singulair) 10 mg PO DAILY ENE Ondansetron HCl (Zofran Inj) 4 mg IVP Q4H PRN PRN Reason: Nausea/Vomiting Pantoprazole Sodium (Protonix Inj) 40 mg IVP DAILY [facility] Last Admin: 01/10/17 09:17 Dose: 40 mg - Labs Labs: 01/10/17 05:00 01/10/17 05:00 PT 10.7 Seconds (9.9-11.8) 01/09/17 14:18 INR 0.99 (0.93-1.08) 01/09/17 14:18 APTT 25.8 Seconds (23.7-30.8) 01/09/17 14:18 Attending/Attestation - Attestation I have personally seen and examined this patient.: Yes I have fully participated in the care of the patient.: Yes I have reviewed all pertinent clinical information, including history, physical exam and plan: Yes Notes (Text): I have seen and examined the patient with the resident at the bedside. Agree with the above note with the following additions/ exceptions: Briefly this is 51 year old male with history of asthma, IDDM, CHF (EF~37%), HTN, history of DVT 10 years ago, gastric bypass 5 years ago, CAD who got admitted for evaluation of worsening of shortness of breath and found to have respiratory distress most likely due to asthma exacerbation and required intubation. Patient got extubated this morning. Continue duonebs, rocephin, zithro and solumedrol. Procal pending. Restart aspirin, plavix, crestor and diovan. Cardiology consult appreciated. Echo result pending. Increase Humilin as hyperglycemia was noted. Dr Karlee Obregon
[2017-01-10] MEDS ORDERED: Albuterol-Ipratrop 3 mg / 0.5 (3 ml) UD IH PRN (14:18)
[2017-01-10] MEDS ORDERED: Insulin Lispro (humaLOG) MIX 75/25(10 ml) SC SCH (14:25)
--- NOTE | 2017-01-10 16:29 | CP.CCUPN ---
CCU Subjective - Physician Review Events Since Last Encounter (Free Text): 01/10/17 16:24 51 y/o M w/ Severe persistent asthma intubated for respiratory failure. Seen this a.m able to follow commands, passed SBt and treated anxiety w/ Ativan . Extubated and doing well. CCU Objective - Vital Signs / Intake & Output Vital Signs (Last 4 hours): Vital Signs Temp Pulse Resp BP Pulse Ox 01/10/17 16:00 98 F 90 22 122/69 98 01/10/17 15:50 90 22 100 01/10/17 15:40 98 H 25 H 98 01/10/17 15:30 92 H 26 H 97 01/10/17 15:20 92 H 30 H 99 01/10/17 15:10 88 29 H 99 01/10/17 15:00 102 H 19 128/69 97 01/10/17 14:50 99 H 21 99 01/10/17 14:40 100 H 98 01/10/17 14:30 82 24 100 01/10/17 14:20 86 33 H 96 01/10/17 14:15 87 34 H 121/72 98 01/10/17 14:10 97 01/10/17 14:00 97 01/10/17 13:50 89 29 H 98 01/10/17 13:40 83 26 H 97 01/10/17 13:30 93 H 37 H 100 01/10/17 13:20 86 99 01/10/17 13:10 89 21 100 01/10/17 13:00 89 99 01/10/17 12:50 82 31 H 100 01/10/17 12:40 82 20 100 01/10/17 12:30 94 H 98 Intake and Output (Last 8hrs): Intake & Output 01/10/17 01/10/17 01/10/17 06:59 14:59 22:59 Intake Total 455 100 Output Total 1000 Balance -545 100 Intake: IV 455 100 Left Forearm 355 Output: Urine 1000 Urethral (Dubose) 1000 Other: Voiding Method Indwelling Catheter - Physical Exam Head: Positive for: Atraumatic, Normocephalic Pupils: Positive for: PERRL Extroacular Muscles: Positive for: EOMI Conjunctiva: Positive for: Normal Ears: Positive for: Normal Nose (External): Positive for: Atraumatic Respiratory/Chest: Positive for: Good Air Exchange, Accessory Muscle Use, Rhonchi (Left upper lung sounds), Tender to Palpation (in the right lower central and lateral chest). Negative for: Wheezes, Rales Cardiovascular: Positive for: Normal S1, S2, Peripheal Pulses Present, Tachycardic. Negative for: Murmurs, Irregular Rhythm (regular rhythm) Abdomen: Positive for: Tenderness (Moderate tenderness RUQ>RLQ), Normal Bowel Sounds. Negative for: Distention, Peritoneal Signs Upper Extremity: Positive for: Normal Inspection. Negative for: Cyanosis, Edema Lower Extremity: Positive for: Normal Inspection, NORMAL PULSES. Negative for: Edema, CALF TENDERNESS Neurological: Positive for: GCS=15. Negative for: CN II-XII Intact (Patient reports decreased sensation in the Right facial nerve distribution compared to the left, other CN's intact) - Medications Active Medications: Active Medications Generic Name Dose Route Start Last Admin Trade Name Freq PRN Reason Stop Dose Admin Acetaminophen 650 mg 01/10/17 08:04 Tylenol 325mg Tab PO Q6 PRN Fever >100.4 F Albuterol/Ipratropium 3 ml 01/09/17 19:30 01/10/17 11:10 Duoneb 3 Mg/0.5 Mg (3 Ml) Ud IH 3 ml [id number] ENE Administration Albuterol/Ipratropium 3 ml 01/10/17 14:18 01/10/17 14:23 Duoneb 3 Mg/0.5 Mg (3 Ml) Ud IH 3 ml Q2H PRN Administration Shortness of Breath Aspirin 81 mg 01/11/17 10:00 Ecotrin PO DAILY [facility] Atorvastatin Calcium 40 mg 01/11/17 17:00 Lipitor PO DIN [facility] Clopidogrel Bisulfate 75 mg 01/11/17 10:00 Plavix PO DAILY [facility] Enoxaparin Sodium 40 mg 01/09/17 17:30 01/10/17 10:00 Lovenox SC 40 mg DAILY [facility] Administration Protocol Ceftriaxone Sodium 1 gm in 100 mls @ 100 mls/hr 01/10/17 10:00 01/10/17 09:18 Rocephin 1 Gram Ivpb IVPB 100 mls/hr DAILY ENE Administration Protocol Azithromycin 500 mg in 250 mls @ 167 mls/hr 01/10/17 10:00 01/10/17 09:18 Zithromax 500mg In Ns IVPB 167 mls/hr DAILY ENE Administration Protocol Insulin Human Regular 0 units 01/09/17 22:00 01/10/17 12:00 Humulin R Low SC 1 units ACHS ENE Administration Protocol Insulin Lispro Protam/Lispro Human 14 units 01/10/17 14:25 Humalog Mix 75/25 SC BID ENE Lorazepam 1 mg 01/10/17 09:26 Ativan IVP Q3 PRN Anxiety Protocol Losartan Potassium 25 mg 01/11/17 10:00 Cozaar PO DAILY ENE Methylprednisolone 60 mg 01/09/17 22:00 01/10/17 09:17 Solu-Medrol IVP 60 mg Q12 ENE Administration Montelukast Sodium 10 mg 01/11/17 10:00 Singulair PO DAILY ENE Ondansetron HCl 4 mg 01/09/17 17:01 Zofran Inj IVP Q4H PRN Nausea/Vomiting Pantoprazole Sodium 40 mg 01/09/17 17:15 01/10/17 09:17 Protonix Inj IVP 40 mg DAILY ENE Administration - Patient Studies Lab Studies: Lab Studies 01/10/17 01/10/17 01/10/17 Range/Units 10:01 05:00 05:00 WBC (4.5-11.0) 10^3/ul RBC (3.5-6.1) 10^6/uL Hgb (14.0-18.0) gm/dL Hct (42.0-52.0) % MCV (80.0-105.0) fL MCH (25.0-35.0) pg MCHC (31.0-37.0) g/dl RDW (11.5-14.5) % Plt Count (120.0-450.0) 10^3/uL MPV (7.0-11.0) fl Gran % (50.0-68.0) % Lymph % (Auto) (22.0-35.0) % Lee % (Auto) (1.0-6.0) % Eos % (Auto) (1.5-5.0) % Baso % (Auto) (0.0-3.0) % Gran # (1.4-6.5) Lymph # (1.2-3.4) Lee # (0.1-0.6) Eos # (0.0-0.7) Baso # (0.0-2.0) K/mm3 pCO2 39 (35-45) mm/Hg pO2 225.0 H (30-55) mm/Hg HCO3 26.5 (21-28) mmol/L ABG pH 7.44 (7.35-7.45) ABG Total CO2 27.7 (22-28) mmol.L ABG O2 Saturation 99.5 H (95-98) % ABG O2 Content 16.6 (15-23) ML/dl ABG Base Excess 2.2 (-2.0-3.0) mmol/L ABG Hemoglobin 11.8 (11.7-17.4) g/dL ABG Carboxyhemoglobin 1.4 (0.5-1.5) % POC ABG HHb (Measured) 0.5 (0-5) % ABG Methemoglobin 1.1 (0.0-3.0) % ABG O2 Capacity 16.7 (16-24) mL/dl VBG pH (7.32-7.43) VBG pCO2 (40-60) VBG HCO3 (21-28) mmol/l VBG Total CO2 (22-28) mmol.L VBG O2 Sat (Calc) (40-65) % VBG Base Excess (0.0-2.0) mmol/L VBG Potassium (3.6-5.2) mmol/L Hgb O2 Saturation 97.1 (95.0-98.0) % Sodium (132-148) mmol/L Chloride (98-107) mmol/L Glucose (75-110) mg/dl Lactate (0.7-2.1) mmol/L FiO2 50.0 % Potassium (3.6-5.0) mmol/L Carbon Dioxide (21-33) mmol/L Anion Gap (10-20) BUN (7-21) mg/dL Creatinine (0.5-1.4) mg/dL Est GFR ( Amer) Est GFR (Non-Af Amer) POC Glucose (mg/dL) (65-110) mg/dL Random Glucose (70-110) mg/dL Lactic Acid 0.9 (0.7-2.1) mmol/L Calcium (8.4-10.5) mg/dL Phosphorus (2.5-4.5) mg/dL Magnesium (1.7-2.2) mg/dL Total Bilirubin (0.2-1.3) mg/dL AST (15-59) U/L ALT (7-56) U/L Alkaline Phosphatase (38-133) U/L Lactate Dehydrogenase (333-699) U/L Total Creatine Kinase (35-230) U/L Troponin I ng/mL NT-Pro-B Natriuret Pep 117 (0-450) pg/mL Total Protein (5.8-8.3) g/dL Albumin (3.0-4.8) g/dL Globulin gm/dL Albumin/Globulin Ratio (1.1-1.8) Venous Blood Potassium (3.6-5.2) mmol/L 01/10/17 01/10/17 01/09/17 Range/Units 05:00 05:00 22:12 WBC 16.1 H D (4.5-11.0) 10^3/ul RBC 4.23 (3.5-6.1) 10^6/uL Hgb 12.0 L (14.0-18.0) gm/dL Hct 36.7 L (42.0-52.0) % MCV 86.8 (80.0-105.0) fL MCH 28.4 (25.0-35.0) pg MCHC 32.7 (31.0-37.0) g/dl RDW 13.1 (11.5-14.5) % Plt Count 259 (120.0-450.0) 10^3/uL MPV 8.8 (7.0-11.0) fl Gran % 89.3 H (50.0-68.0) % Lymph % (Auto) 6.7 L (22.0-35.0) % Lee % (Auto) 3.9 (1.0-6.0) % Eos % (Auto) 0.0 L (1.5-5.0) % Baso % (Auto) 0.1 (0.0-3.0) % Gran # 14.37 H (1.4-6.5) Lymph # 1.1 L (1.2-3.4) Lee # 0.6 (0.1-0.6) Eos # 0.0 (0.0-0.7) Baso # 0.01 (0.0-2.0) K/mm3 pCO2 (35-45) mm/Hg pO2 (30-55) mm/Hg HCO3 (21-28) mmol/L ABG pH (7.35-7.45) ABG Total CO2 (22-28) mmol.L ABG O2 Saturation (95-98) % ABG O2 Content (15-23) ML/dl ABG Base Excess (-2.0-3.0) mmol/L ABG Hemoglobin (11.7-17.4) g/dL ABG Carboxyhemoglobin (0.5-1.5) % POC ABG HHb (Measured) (0-5) % ABG Methemoglobin (0.0-3.0) % ABG O2 Capacity (16-24) mL/dl VBG pH (7.32-7.43) VBG pCO2 (40-60) VBG HCO3 (21-28) mmol/l VBG Total CO2 (22-28) mmol.L VBG O2 Sat (Calc) (40-65) % VBG Base Excess (0.0-2.0) mmol/L VBG Potassium (3.6-5.2) mmol/L Hgb O2 Saturation (95.0-98.0) % Sodium 136 (132-148) mmol/L Chloride 100 (98-107) mmol/L Glucose (75-110) mg/dl Lactate (0.7-2.1) mmol/L FiO2 % Potassium 4.5 (3.6-5.0) mmol/L Carbon Dioxide 28 (21-33) mmol/L Anion Gap 13 (10-20) BUN 16 (7-21) mg/dL Creatinine 0.6 (0.5-1.4) mg/dL Est GFR ( Amer) > 60 Est GFR (Non-Af Amer) > 60 POC Glucose (mg/dL) 244 H (65-110) mg/dL Random Glucose 227 H (70-110) mg/dL Lactic Acid (0.7-2.1) mmol/L Calcium 8.8 (8.4-10.5) mg/dL Phosphorus 5.2 H (2.5-4.5) mg/dL Magnesium 2.6 H (1.7-2.2) mg/dL Total Bilirubin 0.8 (0.2-1.3) mg/dL AST 39 (15-59) U/L ALT 72 H (7-56) U/L Alkaline Phosphatase 56 (38-133) U/L Lactate Dehydrogenase 446 (333-699) U/L Total Creatine Kinase 142 (35-230) U/L Troponin I < 0.01 ng/mL NT-Pro-B Natriuret Pep (0-450) pg/mL Total Protein 6.9 (5.8-8.3) g/dL Albumin 3.9 (3.0-4.8) g/dL Globulin 3.0 gm/dL Albumin/Globulin Ratio 1.3 (1.1-1.8) Venous Blood Potassium (3.6-5.2) mmol/L 01/09/17 01/09/17 01/09/17 Range/Units 19:25 18:06 17:50 WBC (4.5-11.0) 10^3/ul RBC (3.5-6.1) 10^6/uL Hgb (14.0-18.0) gm/dL Hct (42.0-52.0) % MCV (80.0-105.0) fL MCH (25.0-35.0) pg MCHC (31.0-37.0) g/dl RDW (11.5-14.5) % Plt Count (120.0-450.0) 10^3/uL MPV (7.0-11.0) fl Gran % (50.0-68.0) % Lymph % (Auto) (22.0-35.0) % Lee % (Auto) (1.0-6.0) % Eos % (Auto) (1.5-5.0) % Baso % (Auto) (0.0-3.0) % Gran # (1.4-6.5) Lymph # (1.2-3.4) Lee # (0.1-0.6) Eos # (0.0-0.7) Baso # (0.0-2.0) K/mm3 pCO2 (35-45) mm/Hg pO2 132 H (30-55) mm/Hg HCO3 (21-28) mmol/L ABG pH (7.35-7.45) ABG Total CO2 (22-28) mmol.L ABG O2 Saturation (95-98) % ABG O2 Content (15-23) ML/dl ABG Base Excess (-2.0-3.0) mmol/L ABG Hemoglobin (11.7-17.4) g/dL ABG Carboxyhemoglobin (0.5-1.5) % POC ABG HHb (Measured) (0-5) % ABG Methemoglobin (0.0-3.0) % ABG O2 Capacity (16-24) mL/dl VBG pH 7.35 (7.32-7.43) VBG pCO2 48.0 (40-60) VBG HCO3 26.5 (21-28) mmol/l VBG Total CO2 28.0 (22-28) mmol.L VBG O2 Sat (Calc) 99.1 H (40-65) % VBG Base Excess 0.3 (0.0-2.0) mmol/L VBG Potassium 4.6 (3.6-5.2) mmol/L Hgb O2 Saturation (95.0-98.0) % Sodium 137.0 (132-148) mmol/L Chloride 105.0 (98-107) mmol/L Glucose 340 H (75-110) mg/dl Lactate 3.0 H (0.7-2.1) mmol/L FiO2 21.0 % Potassium (3.6-5.0) mmol/L Carbon Dioxide (21-33) mmol/L Anion Gap (10-20) BUN (7-21) mg/dL Creatinine (0.5-1.4) mg/dL Est GFR ( Amer) Est GFR (Non-Af Amer) POC Glucose (mg/dL) 293 H (65-110) mg/dL Random Glucose (70-110) mg/dL Lactic Acid (0.7-2.1) mmol/L Calcium (8.4-10.5) mg/dL Phosphorus (2.5-4.5) mg/dL Magnesium (1.7-2.2) mg/dL Total Bilirubin (0.2-1.3) mg/dL AST (15-59) U/L ALT (7-56) U/L Alkaline Phosphatase (38-133) U/L Lactate Dehydrogenase 533 (333-699) U/L Total Creatine Kinase 137 (35-230) U/L Troponin I < 0.01 ng/mL NT-Pro-B Natriuret Pep (0-450) pg/mL Total Protein (5.8-8.3) g/dL Albumin (3.0-4.8) g/dL Globulin gm/dL Albumin/Globulin Ratio (1.1-1.8) Venous Blood Potassium 4.6 (3.6-5.2) mmol/L Laboratory Results - last 24 hr 01/09/17 01/09/17 01/09/17 17:50 18:06 19:25 WBC RBC Hgb Hct MCV MCH MCHC RDW Plt Count MPV Gran % Lymph % (Auto) Lee % (Auto) Eos % (Auto) Baso % (Auto) Gran # Lymph # Lee # Eos # Baso # pCO2 pO2 132 H HCO3 ABG pH ABG Total CO2 ABG O2 Saturation ABG O2 Content ABG Base Excess ABG Hemoglobin ABG Carboxyhemoglobin POC ABG HHb (Measured) ABG Methemoglobin ABG O2 Capacity VBG pH 7.35 VBG pCO2 48.0 VBG HCO3 26.5 VBG Total CO2 28.0 VBG O2 Sat (Calc) 99.1 H VBG Base Excess 0.3 VBG Potassium 4.6 Hgb O2 Saturation Sodium 137.0 Chloride 105.0 Glucose 340 H Lactate 3.0 H FiO2 21.0 Potassium Carbon Dioxide Anion Gap BUN Creatinine Est GFR ( Amer) Est GFR (Non-Af Amer) POC Glucose (mg/dL) 293 H Random Glucose Lactic Acid Calcium Phosphorus Magnesium Total Bilirubin AST ALT Alkaline Phosphatase Lactate Dehydrogenase 533 Total Creatine Kinase 137 Troponin I < 0.01 NT-Pro-B Natriuret Pep Total Protein Albumin Globulin Albumin/Globulin Ratio Venous Blood Potassium 4.6 01/09/17 01/10/17 01/10/17 22:12 05:00 05:00 WBC 16.1 H D RBC 4.23 Hgb 12.0 L Hct 36.7 L MCV 86.8 MCH 28.4 MCHC 32.7 RDW 13.1 Plt Count 259 MPV 8.8 Gran % 89.3 H Lymph % (Auto) 6.7 L Lee % (Auto) 3.9 Eos % (Auto) 0.0 L Baso % (Auto) 0.1 Gran # 14.37 H Lymph # 1.1 L Lee # 0.6 Eos # 0.0 Baso # 0.01 pCO2 pO2 HCO3 ABG pH ABG Total CO2 ABG O2 Saturation ABG O2 Content ABG Base Excess ABG Hemoglobin ABG Carboxyhemoglobin POC ABG HHb (Measured) ABG Methemoglobin ABG O2 Capacity VBG pH VBG pCO2 VBG HCO3 VBG Total CO2 VBG O2 Sat (Calc) VBG Base Excess VBG Potassium Hgb O2 Saturation Sodium 136 Chloride 100 Glucose Lactate FiO2 Potassium 4.5 Carbon Dioxide 28 Anion Gap 13 BUN 16 Creatinine 0.6 Est GFR ( Amer) > 60 Est GFR (Non-Af Amer) > 60 POC Glucose (mg/dL) 244 H Random Glucose 227 H Lactic Acid Calcium 8.8 Phosphorus 5.2 H Magnesium 2.6 H Total Bilirubin 0.8 AST 39 ALT 72 H Alkaline Phosphatase 56 Lactate Dehydrogenase 446 Total Creatine Kinase 142 Troponin I < 0.01 NT-Pro-B Natriuret Pep Total Protein 6.9 Albumin 3.9 Globulin 3.0 Albumin/Globulin Ratio 1.3 Venous Blood Potassium 01/10/17 01/10/17 01/10/17 05:00 05:00 10:01 WBC RBC Hgb Hct MCV MCH MCHC RDW Plt Count MPV Gran % Lymph % (Auto) Lee % (Auto) Eos % (Auto) Baso % (Auto) Gran # Lymph # Lee # Eos # Baso # pCO2 39 pO2 225.0 H HCO3 26.5 ABG pH 7.44 ABG Total CO2 27.7 ABG O2 Saturation 99.5 H ABG O2 Content 16.6 ABG Base Excess 2.2 ABG Hemoglobin 11.8 ABG Carboxyhemoglobin 1.4 POC ABG HHb (Measured) 0.5 ABG Methemoglobin 1.1 ABG O2 Capacity 16.7 VBG pH VBG pCO2 VBG HCO3 VBG Total CO2 VBG O2 Sat (Calc) VBG Base Excess VBG Potassium Hgb O2 Saturation 97.1 Sodium Chloride Glucose Lactate FiO2 50.0 Potassium Carbon Dioxide Anion Gap BUN Creatinine Est GFR ( Amer) Est GFR (Non-Af Amer) POC Glucose (mg/dL) Random Glucose Lactic Acid 0.9 Calcium Phosphorus Magnesium Total Bilirubin AST ALT Alkaline Phosphatase Lactate Dehydrogenase Total Creatine Kinase Troponin I NT-Pro-B Natriuret Pep 117 Total Protein Albumin Globulin Albumin/Globulin Ratio Venous Blood Potassium Fingerstick Blood Sugar Results: 171 Review of Systems - EENT Eyes: UNREMARKABLE Ears: UNREMARKABLE Nose/Mouth/Throat: UNREMARKABLE - Cardiovascular Cardiovascular: UNREMARKABLE - Respiratory Respiratory: UNREMARKABLE - Gastrointestinal Gastrointestinal: UNREMARKABLE - Genitourinary Genitourinary: UNREMARKABLE - Reproductive: Male Reproductive:Male: UNREMARKABLE - Musculoskeletal Musculoskeletal: UNREMARKABLE - Integumentary Integumentary: UNREMARKABLE - Neurological Neurological: UNREMARKABLE - Psychiatric Psychiatric: UNREMARKABLE - Endocrine Endocrine: UNREMARKABLE - Hematologic/Lymphatic Hematologic: UNREMARKABLE Critical Care Progress Note - Ventilator Checklist Head of Bed 30 Degrees: Yes Daily Sedation Vacation: Yes Daily Assessment of Readiness to Wean: Yes Daily Spontaneous Breathing Trial: Yes PUD Prophalyxis: Yes Assessment/Plan - Assessment and Plan (Free Text) Assessment: 51 y/o M w/ Severe Moderate/ asthma On Albuterol/ Atrovent q3hrs prn Solumedrol 60mg BID Oxygen to keep pao2>60 No active wheezing. Possible LLL infiltrate on CT chest. On empiric abx w/ cx pending. Severe anxiety and started on Ativan prn . Can be changed to Xanax prn Heparin sq tid. cc time 55 min
[2017-01-11] MEDS: Albuterol-Ipratrop 3 mg / 0.5 (3 ml) UD IH SCH ×4 (04:48→19:54)
[2017-01-11] MEDS ORDERED: Morphine 2 mg/ml ISec IVP STA (05:32)
[2017-01-11 06:21] LABS: HEMATOCRIT 38.6 % (42.0-52.0); MEAN CELL VOLUME 85.8 fL (80.0-105.0); MEAN CORPUSCULAR HEMOGLOBIN 28.2 pg (25.0-35.0); MEAN CORPUSCULAR HGB CONC 32.9 g/dl (31.0-37.0); MEAN PLATELET VOLUME 9.2 fl (7.0-11.0); PLATELET COUNT 259 10^3/uL (120.0-450.0); RED CELL DISTRIBUTION WIDTH 13.3 % (11.5-14.5); WHITE BLOOD COUNT 16.2 10^3/ul (4.5-11.0)
[2017-01-11 06:28] LABS: ADD MANUAL DIFF? YES
[2017-01-11 06:46] LABS: ALB/GLOB RATIO 1.3 (1.1-1.8); ALKALINE PHOSPHATASE 56 U/L (38-133); ALT/SGPT 71 U/L (7-56); AST/SGOT 30 U/L (15-59); BLOOD UREA NITROGEN 25 mg/dL (7-21); CARBON DIOXIDE 28 mmol/L (21-33); CHLORIDE 98 mmol/L (98-107); GFR AFRICAN-AMERICAN > 60; GLUCOSE,RANDOM 270 mg/dL (70-110); MAGNESIUM 2.3 mg/dL (1.7-2.2); PHOSPHOROUS 5.3 mg/dL (2.5-4.5); POTASSIUM 4.7 mmol/L (3.6-5.0); SODIUM 137 mmol/L (132-148); TOTAL PROTEIN 7.3 g/dL (5.8-8.3)
[2017-01-11 07:06] LABS: NEUTROPHIL 91 % (50.0-70.0); PLATELET ESTIMATE NORMAL (NORMAL)
[2017-01-11] MEDS: Insulin Lispro (humaLOG) MIX 75/25(10 ml) SC SCH ×3 (07:39→17:45)
[2017-01-11] MEDS: Insulin Reg-LOW-Coverage SC SCH (07:57)
--- NOTE | 2017-01-11 08:14 | RAD ---
HISTORY: intubated, f/u COMPARISON: 01/10/2017 FINDINGS: LUNGS: No active pulmonary disease. PLEURA: No significant pleural effusion identified, no pneumothorax apparent. CARDIOVASCULAR: Normal. OSSEOUS STRUCTURES: No significant abnormalities. VISUALIZED UPPER ABDOMEN: Normal. OTHER FINDINGS: None. IMPRESSION: No active disease.
--- NOTE | 2017-01-11 09:39 | CP.PCM.PN ---
<Nancy Viramontes - Last Filed: 01/11/17 09:25> Subjective - Date & Time of Evaluation Date of Evaluation: 01/11/17 Time of Evaluation: 09:25 - Subjective Subjective: HOSPITALIST PROGRESS NOTE Pt is seen and examined at bedside. He has recently received breathing treatment. Denies having any SOB, CP, abd pain, N/V/D/C, wheezing. Patient was extubated yesterday. He still complains of a nonproductive cough and throat pain. He does complain of chest congestion. Objective - Vital Signs/Intake and Output Vital Signs (last 24 hours): Temp Pulse Resp BP Pulse Ox 99 F 100 H 27 H 115/69 99 01/11/17 04:00 01/11/17 08:40 01/11/17 08:30 01/11/17 08:00 01/11/17 08:40 - Medications Medications: Current Medications Acetaminophen (Tylenol 325mg Tab) 650 mg PO Q6 PRN PRN Reason: Fever >100.4 F Albuterol/Ipratropium (Duoneb 3 Mg/0.5 Mg (3 Ml) Ud) 3 ml IH Q2H PRN PRN Reason: Shortness of Breath Last Admin: 01/10/17 14:23 Dose: 3 ml Albuterol/Ipratropium (Duoneb 3 Mg/0.5 Mg (3 Ml) Ud) 3 ml IH [id number] ALEX Aspirin (Ecotrin) 81 mg PO DAILY ALEX Atorvastatin Calcium (Lipitor) 40 mg PO DIN ALEX Clopidogrel Bisulfate (Plavix) 75 mg PO DAILY ALEX Enoxaparin Sodium (Lovenox) 40 mg SC DAILY ALEX PRN Reason: Protocol Last Admin: 01/10/17 10:00 Dose: 40 mg Ceftriaxone Sodium (Rocephin 1 Gram Ivpb) 1 gm in 100 mls @ 100 mls/hr IVPB DAILY ALEX PRN Reason: Protocol Last Admin: 01/10/17 09:18 Dose: 100 mls/hr Azithromycin (Zithromax 500mg In Ns) 500 mg in 250 mls @ 167 mls/hr IVPB DAILY ALEX PRN Reason: Protocol Last Admin: 01/10/17 09:18 Dose: 167 mls/hr Ibuprofen (Motrin Tab) 600 mg PO Q6H PRN PRN Reason: Pain, moderate (4-7) Last Admin: 01/10/17 17:42 Dose: 600 mg Insulin Human Regular (Humulin R Med) 0 units SC ACHS ALEX PRN Reason: Protocol Insulin Lispro Protam/Lispro Human (Humalog Mix 75/25) 16 units SC BID ALEX Lorazepam (Ativan) 1 mg IVP Q3 PRN; Protocol PRN Reason: Anxiety Losartan Potassium (Cozaar) 25 mg PO DAILY ALEX Methylprednisolone (Solu-Medrol) 40 mg IVP Q12 ALEX Montelukast Sodium (Singulair) 10 mg PO DAILY ALEX Ondansetron HCl (Zofran Inj) 4 mg IVP Q4H PRN PRN Reason: Nausea/Vomiting Pantoprazole Sodium (Protonix Inj) 40 mg IVP DAILY [facility] Last Admin: 01/10/17 09:17 Dose: 40 mg - Labs Labs: 01/11/17 06:00 01/11/17 06:00 PT 10.7 Seconds (9.9-11.8) 01/09/17 14:18 INR 0.99 (0.93-1.08) 01/09/17 14:18 APTT 25.8 Seconds (23.7-30.8) 01/09/17 14:18 - Constitutional Appears: Non-toxic, No Acute Distress - Head Exam Head Exam: ATRAUMATIC - ENT Exam ENT Exam: Mucous Membranes Moist - Respiratory Exam Respiratory Exam: Rales, NORMAL BREATHING PATTERN. absent: Accessory Muscle Use , Rhonchi, Wheezes, Respiratory Distress - Cardiovascular Exam Cardiovascular Exam: REGULAR RHYTHM, +S1, +S2. absent: Gallop, Rubs, Murmur - GI/Abdominal Exam GI & Abdominal Exam: Soft, Normal Bowel Sounds. absent: Distended, Firm, Guarding, Rigid, Tenderness - Extremities Exam Extremities Exam: absent: Pedal Edema, Tenderness - Neurological Exam Neurological Exam: Alert, Awake, Oriented x3 - Psychiatric Exam Psychiatric exam: Normal Affect, Normal Mood - Skin Skin Exam: Dry, Intact, Normal Color, Warm Assessment and Plan - Assessment and Plan (Free Text) Assessment: 51 yo M w/ PMHx of asthma, IDDM, systolic heart failure with EF of 37%, HTN, DVT x1 10 yrs ago, and gastric bypass 5 years prior, CAD, presents with 3 days of gradually worsening SOB. Patient is on nasal canula Respiratory distress likely 2/2 asthma exacerbation Duoneb q6 alex and q2 prn solumedrol 40 mg IV q12 singulair D dimer was negative Sepsis Resolved Lactic acid is WNL Will check pro edward Blood cultures are negative ceftriaxone 1gm IVPB qd azithromycin 500 mg IVPb qd CAD Will restart home meds plavix, aspirin crestor and diovan Trops x 3 negative ProBNP was WNL Cardiomyopathy: Cardiac consult Will follow up echo results DM: ISS medium dose humalog mix 75/25 16 u sc BID Will check [id number] achs accuchecks Will hold home PO hypoglycemic medications history of DVT Continue home meds aspirin and plavix ppx measures lovenox 40 protonix IV zofran 4mg q4 IV prn Case discussed with attending, Dr. Obregon <Karlee Obregon - Last Filed: 01/11/17 11:42> Objective - Vital Signs/Intake and Output Vital Signs (last 24 hours): Temp Pulse Resp BP Pulse Ox 99 F 100 H 27 H 115/69 99 01/11/17 04:00 01/11/17 08:40 01/11/17 08:30 01/11/17 08:00 01/11/17 08:40 - Medications Medications: Current Medications Acetaminophen (Tylenol 325mg Tab) 650 mg PO Q6 PRN PRN Reason: Fever >100.4 F Albuterol/Ipratropium (Duoneb 3 Mg/0.5 Mg (3 Ml) Ud) 3 ml IH Q2H PRN PRN Reason: Shortness of Breath Last Admin: 01/10/17 14:23 Dose: 3 ml Albuterol/Ipratropium (Duoneb 3 Mg/0.5 Mg (3 Ml) Ud) 3 ml IH [id number] ALEX Aspirin (Ecotrin) 81 mg PO DAILY [facility] Last Admin: 01/11/17 10:28 Dose: 81 mg Atorvastatin Calcium (Lipitor) 40 mg PO DIN ALEX Clopidogrel Bisulfate (Plavix) 75 mg PO DAILY [facility] Last Admin: 01/11/17 10:28 Dose: 75 mg Enoxaparin Sodium (Lovenox) 40 mg SC DAILY ALEX PRN Reason: Protocol Last Admin: 01/11/17 10:28 Dose: 40 mg Ceftriaxone Sodium (Rocephin 1 Gram Ivpb) 1 gm in 100 mls @ 100 mls/hr IVPB DAILY ALEX PRN Reason: Protocol Last Admin: 01/11/17 10:27 Dose: 100 mls/hr Azithromycin (Zithromax 500mg In Ns) 500 mg in 250 mls @ 167 mls/hr IVPB DAILY ALEX PRN Reason: Protocol Last Admin: 01/11/17 10:25 Dose: 167 mls/hr Ibuprofen (Motrin Tab) 600 mg PO Q6H PRN PRN Reason: Pain, moderate (4-7) Last Admin: 01/10/17 17:42 Dose: 600 mg Insulin Human Regular (Humulin R Med) 0 units SC ACHS ALEX PRN Reason: Protocol Insulin Lispro Protam/Lispro Human (Humalog Mix 75/25) 16 units SC BID [facility] Last Admin: 01/11/17 10:29 Dose: 16 u Lorazepam (Ativan) 1 mg IVP Q3 PRN; Protocol PRN Reason: Anxiety Losartan Potassium (Cozaar) 25 mg PO DAILY [facility] Last Admin: 01/11/17 10:30 Dose: 25 mg Methylprednisolone (Solu-Medrol) 40 mg IVP Q12 [facility] Last Admin: 01/11/17 10:24 Dose: 40 mg Montelukast Sodium (Singulair) 10 mg PO DAILY [facility] Last Admin: 01/11/17 10:28 Dose: 10 mg Ondansetron HCl (Zofran Inj) 4 mg IVP Q4H PRN PRN Reason: Nausea/Vomiting Pantoprazole Sodium (Protonix Inj) 40 mg IVP DAILY [facility] Last Admin: 01/11/17 10:24 Dose: 40 mg - Labs Labs: 01/11/17 06:00 01/11/17 06:00 PT 10.7 Seconds (9.9-11.8) 01/09/17 14:18 INR 0.99 (0.93-1.08) 01/09/17 14:18 APTT 25.8 Seconds (23.7-30.8) 01/09/17 14:18 Attending/Attestation - Attestation I have personally seen and examined this patient.: Yes I have fully participated in the care of the patient.: Yes I have reviewed all pertinent clinical information, including history, physical exam and plan: Yes Notes (Text): I have seen and examined the patient with the resident at the bedside. Agree with the above note with the following additions/ exceptions: Briefly this is 51 year old male with history of asthma, IDDM, CHF (EF~37%), HTN, history of DVT 10 years ago, gastric bypass 5 years ago, CAD who got admitted for evaluation of worsening of shortness of breath and found to have respiratory distress most likely due to asthma exacerbation and required intubation. Patient got extubated yesterday. He is on NC. Able to talk in complete sentences. Denies any complaints. Able to eat without any problem. Continue duonebs, rocephin, zithro and taper solumedrol. Procal pending. Continue aspirin , plavix, crestor and diovan. Discussed with Dr Smith. Echo result pending.Adjust insulin as hyperglycemia was noted. PT eval ordered. Upon discharge patient will follow up with Dr Alexandra Villagran. Dr Karlee Obregon
[2017-01-11] MEDS: MethylPREDNISolone 40 mg Vial IVP SCH ×2 (10:24→21:44)
[2017-01-11] MEDS: Azithromycin 500MG/NS 250ml 500 MG/250 ML BAG IVPB SCH (10:25)
[2017-01-11] MEDS: cefTRIAXone 1 gm 1 GM/100 ML BAG IVPB SCH (10:27)
[2017-01-11] MEDS: Enoxaparin 40 mg Syringe SC SCH (10:28)
--- NOTE | 2017-01-11 11:05 | CARD ---
APPROVED REPORT EXAM: Two-dimensional and M-mode echocardiogram with Doppler and color Doppler. Other Information Quality : AverageRhythm : INDICATION Dyspnea , RESP. DISTRESS 2D DIMENSIONS Left Atrium (2D)3.9 (1.6-4.0cm)IVSd1.1 (0.7-1.1cm) LVDd4.9 (3.9-5.9cm)PWd1.1 (0.7-1.1cm) LVDs3.6 (2.5-4.0cm)FS (%) 25.4 % LVEF (%)50.1 (>50%) M-Mode DIMENSIONS Aortic Root2.60 (2.2-3.7cm)Aortic Cusp Exc.1.80 (1.5-2.0cm) Aortic Valve AoV Peak Mlzhsfgu195.0cm/Yuliana Peak GR.10mmHg Mitral Valve MV E Frhhnmwl16.9cm/sMV A Csskhprs49.3cm/sE/A ratio0.7 TDI E/Lateral E'0.0E/Medial E'0.0 Tricuspid Valve TR Peak Livwjwjm987xt/sRAP [id number] Peak Gr.8mmHg [id number] LEFT VENTRICLE The left ventricle is normal size. There is normal left ventricular wall thickness. The left ventricular function is normal. The left ventricular ejection fraction is within the normal range. There is normal LV segmental wall motion. RIGHT VENTRICLE The right ventricle is normal size. ATRIA The left atrium size is normal. The right atrium size is normal. The interatrial septum is intact with no evidence for an atrial septal defect. AORTIC VALVE The aortic valve is normal in structure. MITRAL VALVE The mitral valve is mildly thickened but opens well. TRICUSPID VALVE The tricuspid valve is normal in structure. PULMONIC VALVE The pulmonic valve is not well visualized. GREAT VESSELS The aortic root is normal in size. PERICARDIAL EFFUSION There is no pericardial effusion. <Conclusion> The left ventricle is normal size. There is normal left ventricular wall thickness. The left ventricular function is normal.
[2017-01-11] MEDS: Insulin Reg-MEDIUM-Coverage SC SCH ×3 (11:53→21:42)
--- NOTE | 2017-01-11 14:26 | PN ---
DATE: 01/11/2017 The patient's breathing is much improved. PHYSICAL EXAMINATION: VITAL SIGNS: Blood pressure is 115/69, the heart rate is in the 90s. NECK: Negative JVD. LUNGS: Clear to auscultation. HEART: Revealed S1, S2. EXTREMITIES: Without edema. The white count is 16.2, hemoglobin is 12.7. Chemistries are essentially unchanged, but the magnesiu m is up to 2.3. Echocardiogram reveals good LV function, no pulmonary hypertension. IMPRESSION: 1. Status post bronchospasm. 2. Dyspnea is improved. 3. Improvement of left ventricular function since his last study. 4. Nonobstructive coronary artery disease. 5. Diabetes mellitus. 6. Hypertension. Given these findings, the patient can be transferred from the ICU to telemetry. Once he has recovere d from his respiratory distress, will consider an outpatient stress test. Solis Smith MD cc: [id number] TT: 01/11/2017 14:25:34 Confirmation # [id number] Dictation # [id number]
--- NOTE | 2017-01-11 14:35 | CP.CCUPN ---
<Ladarius Tyson - Last Filed: 01/11/17 14:31> CCU Subjective - Physician Review Events Since Last Encounter (Free Text): 01/11/17 14:31 51 year old male with a PMH of severe persistent asthma, CAD, cardiomyopathy with an EF of 35%, DVT multiple years ago treated with a year of anticoagulation , and gastric bypass who presented to [facility] with shortness of breath and was intubated for respiratory failure due to status asthmaticus. Patient today is doing much better, has no complaints and states that his wheezing has resolved. No issues since extubated. CCU Objective - Vital Signs / Intake & Output Intake and Output (Last 8hrs): Intake & Output 01/10/17 01/11/17 01/11/17 22:59 06:59 14:59 Intake Total 710 Output Total 550 Balance 160 Intake: Oral 360 Other 350 Output: Urine 550 Urethral (Dubose) 550 Other: # Bowel Movements 0 - Physical Exam Head: Positive for: Atraumatic, Normocephalic Pupils: Positive for: PERRL Extroacular Muscles: Positive for: EOMI Conjunctiva: Positive for: Normal Ears: Positive for: Normal Mouth: Positive for: Moist Mucous Membranes, Normal Tounge Pharnyx: Positive for: Normal. Negative for: ERYTHEMA, EXUDATE Nose (External): Positive for: Atraumatic Respiratory/Chest: Positive for: Good Air Exchange, Tender to Palpation (over right chest). Negative for: Respiratory Distress, Accessory Muscle Use, Wheezes , Rales, Rhonchi, Tachypneic Cardiovascular: Positive for: Normal S1, S2, Peripheal Pulses Present, Tachycardic. Negative for: Murmurs, Irregular Rhythm (regular rhythm), Rub, Gallop Abdomen: Positive for: Normal Bowel Sounds. Negative for: Distention, Peritoneal Signs, Guarding Back: Negative for: Midline Tenderness, Paraspinal Tenderness Upper Extremity: Positive for: Normal Inspection, Capillary Refill < 2s. Negative for: Cyanosis, Edema, Tenderness, Swelling Lower Extremity: Positive for: Normal Inspection, NORMAL PULSES. Negative for: Edema, CALF TENDERNESS Neurological: Positive for: GCS=15, CN II-XII Intact, Speech Normal, Motor Func Grossly Intact Skin: Positive for: Warm, Dry - Medications Active Medications: Active Medications Generic Name Dose Route Start Last Admin Trade Name Freq PRN Reason Stop Dose Admin Acetaminophen 650 mg 01/10/17 08:04 Tylenol 325mg Tab PO Q6 PRN Fever >100.4 F Albuterol/Ipratropium 3 ml 01/10/17 14:18 01/10/17 14:23 Duoneb 3 Mg/0.5 Mg (3 Ml) Ud IH 3 ml Q2H PRN Administration Shortness of Breath Albuterol/Ipratropium 3 ml 01/11/17 14:00 01/11/17 13:00 Duoneb 3 Mg/0.5 Mg (3 Ml) Ud IH 3 ml [id number] ENE Administration Aspirin 81 mg 01/11/17 10:00 01/11/17 10:28 Ecotrin PO 81 mg DAILY ENE Administration Atorvastatin Calcium 40 mg 01/11/17 17:00 Lipitor PO DIN ENE Clopidogrel Bisulfate 75 mg 01/11/17 10:00 01/11/17 10:28 Plavix PO 75 mg DAILY ENE Administration Enoxaparin Sodium 40 mg 01/09/17 17:30 01/11/17 10:28 Lovenox SC 40 mg DAILY [facility] Administration Protocol Ceftriaxone Sodium 1 gm in 100 mls @ 100 mls/hr 01/10/17 10:00 01/11/17 10:27 Rocephin 1 Gram Ivpb IVPB 100 mls/hr DAILY [facility] Administration Protocol Azithromycin 500 mg in 250 mls @ 167 mls/hr 01/10/17 10:00 01/11/17 10:25 Zithromax 500mg In Ns IVPB 167 mls/hr DAILY [facility] Administration Protocol Ibuprofen 600 mg 01/10/17 17:33 01/10/17 17:42 Motrin Tab PO 600 mg Q6H PRN Administration Pain, moderate (4-7) Insulin Human Regular 0 units 01/11/17 11:30 01/11/17 11:53 Humulin R Med SC 7 units ACHS ENE Administration Protocol Insulin Lispro Protam/Lispro Human 16 units 01/11/17 09:24 01/11/17 10:29 Humalog Mix 75/25 SC 16 u BID ENE Administration Lorazepam 1 mg 01/10/17 09:26 Ativan IVP Q3 PRN Anxiety Protocol Losartan Potassium 25 mg 01/11/17 10:00 01/11/17 10:30 Cozaar PO 25 mg DAILY ENE Administration Methylprednisolone 40 mg 01/11/17 09:22 01/11/17 10:24 Solu-Medrol IVP 40 mg Q12 ENE Administration Montelukast Sodium 10 mg 01/11/17 10:00 01/11/17 10:28 Singulair PO 10 mg DAILY ENE Administration Ondansetron HCl 4 mg 01/09/17 17:01 Zofran Inj IVP Q4H PRN Nausea/Vomiting Pantoprazole Sodium 40 mg 01/09/17 17:15 01/11/17 10:24 Protonix Inj IVP 40 mg DAILY ENE Administration - Patient Studies Lab Studies: Microbiology Studies 01/09/17 15:05 Urine Culture - Final Urine No Growth (<1,000 CFU/ML) 01/09/17 20:30 MRSA Culture (Admit) - Final Naris MRSA NOT DETECTED Lab Studies 01/11/17 01/11/17 01/11/17 Range/Units 11:10 07:37 06:00 WBC (4.5-11.0) 10^3/ul RBC (3.5-6.1) 10^6/uL Hgb (14.0-18.0) gm/dL Hct (42.0-52.0) % MCV (80.0-105.0) fL MCH (25.0-35.0) pg MCHC (31.0-37.0) g/dl RDW (11.5-14.5) % Plt Count (120.0-450.0) 10^3/uL MPV (7.0-11.0) fl Neutrophils % (Manual) (50.0-70.0) % Lymphocytes % (Manual) (22.0-35.0) % Monocytes % (Manual) (1.0-6.0) % Platelet Evaluation (NORMAL) Sodium 137 (132-148) mmol/L Potassium 4.7 (3.6-5.0) mmol/L Chloride 98 (98-107) mmol/L Carbon Dioxide 28 (21-33) mmol/L Anion Gap 16 (10-20) BUN 25 H (7-21) mg/dL Creatinine 0.6 (0.5-1.4) mg/dL Est GFR ( Amer) > 60 Est GFR (Non-Af Amer) > 60 POC Glucose (mg/dL) 311 H 259 H (65-110) mg/dL Random Glucose 270 H (70-110) mg/dL Lactic Acid (0.7-2.1) mmol/L Calcium 9.0 (8.4-10.5) mg/dL Phosphorus 5.3 H (2.5-4.5) mg/dL Magnesium 2.3 H (1.7-2.2) mg/dL Total Bilirubin 1.0 (0.2-1.3) mg/dL AST 30 (15-59) U/L ALT 71 H (7-56) U/L Alkaline Phosphatase 56 (38-133) U/L Total Protein 7.3 (5.8-8.3) g/dL Albumin 4.1 (3.0-4.8) g/dL Globulin 3.2 gm/dL Albumin/Globulin Ratio 1.3 (1.1-1.8) Procalcitonin (0.19-0.49) NG/ML 01/11/17 01/11/17 01/11/17 Range/Units 06:00 06:00 05:50 WBC 16.2 H (4.5-11.0) 10^3/ul RBC 4.50 (3.5-6.1) 10^6/uL Hgb 12.7 L (14.0-18.0) gm/dL Hct 38.6 L (42.0-52.0) % MCV 85.8 (80.0-105.0) fL MCH 28.2 (25.0-35.0) pg MCHC 32.9 (31.0-37.0) g/dl RDW 13.3 (11.5-14.5) % Plt Count 259 (120.0-450.0) 10^3/uL MPV 9.2 (7.0-11.0) fl Neutrophils % (Manual) 91 H (50.0-70.0) % Lymphocytes % (Manual) 6 L (22.0-35.0) % Monocytes % (Manual) 2 (1.0-6.0) % Platelet Evaluation Normal (NORMAL) Sodium (132-148) mmol/L Potassium (3.6-5.0) mmol/L Chloride (98-107) mmol/L Carbon Dioxide (21-33) mmol/L Anion Gap (10-20) BUN (7-21) mg/dL Creatinine (0.5-1.4) mg/dL Est GFR ( Amer) Est GFR (Non-Af Amer) POC Glucose (mg/dL) (65-110) mg/dL Random Glucose (70-110) mg/dL Lactic Acid 1.5 (0.7-2.1) mmol/L Calcium (8.4-10.5) mg/dL Phosphorus (2.5-4.5) mg/dL Magnesium (1.7-2.2) mg/dL Total Bilirubin (0.2-1.3) mg/dL AST (15-59) U/L ALT (7-56) U/L Alkaline Phosphatase (38-133) U/L Total Protein (5.8-8.3) g/dL Albumin (3.0-4.8) g/dL Globulin gm/dL Albumin/Globulin Ratio (1.1-1.8) Procalcitonin < 0.05 L (0.19-0.49) NG/ML 01/10/17 01/10/17 01/10/17 Range/Units 21:33 16:25 11:06 WBC (4.5-11.0) 10^3/ul RBC (3.5-6.1) 10^6/uL Hgb (14.0-18.0) gm/dL Hct (42.0-52.0) % MCV (80.0-105.0) fL MCH (25.0-35.0) pg MCHC (31.0-37.0) g/dl RDW (11.5-14.5) % Plt Count (120.0-450.0) 10^3/uL MPV (7.0-11.0) fl Neutrophils % (Manual) (50.0-70.0) % Lymphocytes % (Manual) (22.0-35.0) % Monocytes % (Manual) (1.0-6.0) % Platelet Evaluation (NORMAL) Sodium (132-148) mmol/L Potassium (3.6-5.0) mmol/L Chloride (98-107) mmol/L Carbon Dioxide (21-33) mmol/L Anion Gap (10-20) BUN (7-21) mg/dL Creatinine (0.5-1.4) mg/dL Est GFR ( Amer) Est GFR (Non-Af Amer) POC Glucose (mg/dL) 398 H 191 H 171 H (65-110) mg/dL Random Glucose (70-110) mg/dL Lactic Acid (0.7-2.1) mmol/L Calcium (8.4-10.5) mg/dL Phosphorus (2.5-4.5) mg/dL Magnesium (1.7-2.2) mg/dL Total Bilirubin (0.2-1.3) mg/dL AST (15-59) U/L ALT (7-56) U/L Alkaline Phosphatase (38-133) U/L Total Protein (5.8-8.3) g/dL Albumin (3.0-4.8) g/dL Globulin gm/dL Albumin/Globulin Ratio (1.1-1.8) Procalcitonin (0.19-0.49) NG/ML 01/10/17 Range/Units 07:31 WBC (4.5-11.0) 10^3/ul RBC (3.5-6.1) 10^6/uL Hgb (14.0-18.0) gm/dL Hct (42.0-52.0) % MCV (80.0-105.0) fL MCH (25.0-35.0) pg MCHC (31.0-37.0) g/dl RDW (11.5-14.5) % Plt Count (120.0-450.0) 10^3/uL MPV (7.0-11.0) fl Neutrophils % (Manual) (50.0-70.0) % Lymphocytes % (Manual) (22.0-35.0) % Monocytes % (Manual) (1.0-6.0) % Platelet Evaluation (NORMAL) Sodium (132-148) mmol/L Potassium (3.6-5.0) mmol/L Chloride (98-107) mmol/L Carbon Dioxide (21-33) mmol/L Anion Gap (10-20) BUN (7-21) mg/dL Creatinine (0.5-1.4) mg/dL Est GFR ( Amer) Est GFR (Non-Af Amer) POC Glucose (mg/dL) 199 H (65-110) mg/dL Random Glucose (70-110) mg/dL Lactic Acid (0.7-2.1) mmol/L Calcium (8.4-10.5) mg/dL Phosphorus (2.5-4.5) mg/dL Magnesium (1.7-2.2) mg/dL Total Bilirubin (0.2-1.3) mg/dL AST (15-59) U/L ALT (7-56) U/L Alkaline Phosphatase (38-133) U/L Total Protein (5.8-8.3) g/dL Albumin (3.0-4.8) g/dL Globulin gm/dL Albumin/Globulin Ratio (1.1-1.8) Procalcitonin (0.19-0.49) NG/ML Laboratory Results - last 24 hr 01/10/17 01/10/17 01/10/17 07:31 11:06 16:25 WBC RBC Hgb Hct MCV MCH MCHC RDW Plt Count MPV Neutrophils % (Manual) Lymphocytes % (Manual) Monocytes % (Manual) Platelet Evaluation Sodium Potassium Chloride Carbon Dioxide Anion Gap BUN Creatinine Est GFR ( Amer) Est GFR (Non-Af Amer) POC Glucose (mg/dL) 199 H 171 H 191 H Random Glucose Lactic Acid Calcium Phosphorus Magnesium Total Bilirubin AST ALT Alkaline Phosphatase Total Protein Albumin Globulin Albumin/Globulin Ratio Procalcitonin 01/10/17 01/11/17 01/11/17 21:33 05:50 06:00 WBC RBC Hgb Hct MCV MCH MCHC RDW Plt Count MPV Neutrophils % (Manual) Lymphocytes % (Manual) Monocytes % (Manual) Platelet Evaluation Sodium Potassium Chloride Carbon Dioxide Anion Gap BUN Creatinine Est GFR ( Amer) Est GFR (Non-Af Amer) POC Glucose (mg/dL) 398 H Random Glucose Lactic Acid 1.5 Calcium Phosphorus Magnesium Total Bilirubin AST ALT Alkaline Phosphatase Total Protein Albumin Globulin Albumin/Globulin Ratio Procalcitonin < 0.05 L 01/11/17 01/11/17 01/11/17 06:00 06:00 07:37 WBC 16.2 H RBC 4.50 Hgb 12.7 L Hct 38.6 L MCV 85.8 MCH 28.2 MCHC 32.9 RDW 13.3 Plt Count 259 MPV 9.2 Neutrophils % (Manual) 91 H Lymphocytes % (Manual) 6 L Monocytes % (Manual) 2 Platelet Evaluation Normal Sodium 137 Potassium 4.7 Chloride 98 Carbon Dioxide 28 Anion Gap 16 BUN 25 H Creatinine 0.6 Est GFR ( Amer) > 60 Est GFR (Non-Af Amer) > 60 POC Glucose (mg/dL) 259 H Random Glucose 270 H Lactic Acid Calcium 9.0 Phosphorus 5.3 H Magnesium 2.3 H Total Bilirubin 1.0 AST 30 ALT 71 H Alkaline Phosphatase 56 Total Protein 7.3 Albumin 4.1 Globulin 3.2 Albumin/Globulin Ratio 1.3 Procalcitonin 01/11/17 11:10 WBC RBC Hgb Hct MCV MCH MCHC RDW Plt Count MPV Neutrophils % (Manual) Lymphocytes % (Manual) Monocytes % (Manual) Platelet Evaluation Sodium Potassium Chloride Carbon Dioxide Anion Gap BUN Creatinine Est GFR ( Amer) Est GFR (Non-Af Amer) POC Glucose (mg/dL) 311 H Random Glucose Lactic Acid Calcium Phosphorus Magnesium Total Bilirubin AST ALT Alkaline Phosphatase Total Protein Albumin Globulin Albumin/Globulin Ratio Procalcitonin Fingerstick Blood Sugar Results: 398 Review of Systems - Constitutional Constitutional: absent: Fever, Chills - EENT Eyes: absent: Blurred Vision, Change in Vision Ears: absent: Decreased Hearing, Ear Discharge Nose/Mouth/Throat: absent: Epistaxis, Nasal Congestion - Cardiovascular Cardiovascular: absent: Chest Pain, Diaphoresis - Respiratory Respiratory: absent: Cough, Dyspnea - Gastrointestinal Gastrointestinal: absent: Abdominal Pain, Nausea, Vomiting - Genitourinary Genitourinary: absent: Dysuria, Hematuria - Musculoskeletal Musculoskeletal: absent: Arthralgias, Back Pain - Integumentary Integumentary: absent: Pruritus, Rash, Skin Pain - Neurological Neurological: absent: Disequilibrium, Numbness, Headaches Critical Care Progress Note - Prophylaxis GI Prophylaxis GI: PPI - Prophylaxis DVT Prophylaxis DVT: Lovenox - Nutrition Nutrition: Nutrition Category Date Time Status Consistent Carbohydrate [DIET] Diets 01/10/17 Dinner Ordered Assessment/Plan - Assessment and Plan (Free Text) Assessment: 51 year old male with a PMH of severe persistent asthma admitted for respiratory failure due to status asthmaticus. Plan: Neurological - AAOx4, GCS 15, no focal deficits, monitoring. Cardiovascular - RRR with some tachycardia at times likely 2/2 albuterol use, no M/R/G, hemodynamically stable, known CAD and cardiomyopathy, cardio following , continue ASA, atorvastatin, clopidogrel, and losartan. Pulmonary - CTAB, no W/R/R, satting well on room air, decreased duonebs to q6h from q4h with continued q2h PRN, decreased solumedrol from 60 to 40mg q12h, continue montelukast, will be transferred to telemetry now that his condition has improved, discussed with patient and primary team as well and we are in agreement. Renal/ Fluids / Electrolytes - 810/550, Cr within normal limits, BUN somewhat trended up today, encouraged PO fluids. GI - no N/V/D, continue Consistent carb diet. Infectious disease - afebrile, no acute signs of infection but when presented had suspected infiltrate, CXR reviewed showed no signs of infection at this time , continue with ceftriaxone and azithromycin day 2, does have leukocytosis but likely 2/2 IV steroids, blood cultures negative x2 on Day 2, PRN acetaminophen in place, continue to monitor. Hematology - Hgb stable in the 12s, leukocytosis discussed above, no signs of bleeding, hemodynamically stable. Endocrine - glucose 171-398, on insulin 75/25 14U BID, on RISS - low, continue fingersticks ACHS. Psychiatric - continues to have anxiety, PRN ativan in place. Prophylaxis - lovenox, protonix Patient was seen and examined and case was discussed at length with attending physician. - Date & Time Date: 01/11/17 Time: 11:00 <Jose Peter - Last Filed: 01/11/17 15:49> CCU Objective - Medications Active Medications: Active Medications Generic Name Dose Route Start Last Admin Trade Name Freq PRN Reason Stop Dose Admin Acetaminophen 650 mg 01/10/17 08:04 Tylenol 325mg Tab PO Q6 PRN Fever >100.4 F Albuterol/Ipratropium 3 ml 01/10/17 14:18 01/10/17 14:23 Duoneb 3 Mg/0.5 Mg (3 Ml) Ud IH 3 ml Q2H PRN Administration Shortness of Breath Albuterol/Ipratropium 3 ml 01/11/17 14:00 01/11/17 13:00 Duoneb 3 Mg/0.5 Mg (3 Ml) Ud IH 3 ml [id number] ENE Administration Aspirin 81 mg 01/11/17 10:00 01/11/17 10:28 Ecotrin PO 81 mg DAILY ENE Administration Atorvastatin Calcium 40 mg 01/11/17 17:00 Lipitor PO DIN ENE Clopidogrel Bisulfate 75 mg 01/11/17 10:00 01/11/17 10:28 Plavix PO 75 mg DAILY ENE Administration Enoxaparin Sodium 40 mg 01/09/17 17:30 01/11/17 10:28 Lovenox SC 40 mg DAILY ENE Administration Protocol Ceftriaxone Sodium 1 gm in 100 mls @ 100 mls/hr 01/10/17 10:00 01/11/17 10:27 Rocephin 1 Gram Ivpb IVPB 100 mls/hr DAILY E[facility] Administration Protocol Azithromycin 500 mg in 250 mls @ 167 mls/hr 01/10/17 10:00 01/11/17 10:25 Zithromax 500mg In Ns IVPB 167 mls/hr DAILY E[facility] Administration Protocol Ibuprofen 600 mg 01/10/17 17:33 01/10/17 17:42 Motrin Tab PO 600 mg Q6H PRN Administration Pain, moderate (4-7) Insulin Human Regular 0 units 01/11/17 11:30 01/11/17 11:53 Humulin R Med SC 7 units ACHS ENE Administration Protocol Insulin Lispro Protam/Lispro Human 16 units 01/11/17 09:24 01/11/17 10:29 Humalog Mix 75/25 SC 16 u BID ENE Administration Lorazepam 1 mg 01/10/17 09:26 Ativan IVP Q3 PRN Anxiety Protocol Losartan Potassium 25 mg 01/11/17 10:00 01/11/17 10:30 Cozaar PO 25 mg DAILY ENE Administration Methylprednisolone 40 mg 01/11/17 09:22 01/11/17 10:24 Solu-Medrol IVP 40 mg Q12 ENE Administration Montelukast Sodium 10 mg 01/11/17 10:00 01/11/17 10:28 Singulair PO 10 mg DAILY ENE Administration Ondansetron HCl 4 mg 01/09/17 17:01 Zofran Inj IVP Q4H PRN Nausea/Vomiting Pantoprazole Sodium 40 mg 01/09/17 17:15 01/11/17 10:24 Protonix Inj IVP 40 mg DAILY ENE Administration - Patient Studies Lab Studies: Microbiology Studies 01/09/17 15:05 Urine Culture - Final Urine No Growth (<1,000 CFU/ML) 01/09/17 20:30 MRSA Culture (Admit) - Final Naris MRSA NOT DETECTED Lab Studies 01/11/17 01/11/17 01/11/17 Range/Units 11:10 07:37 06:00 WBC (4.5-11.0) 10^3/ul RBC (3.5-6.1) 10^6/uL Hgb (14.0-18.0) gm/dL Hct (42.0-52.0) % MCV (80.0-105.0) fL MCH (25.0-35.0) pg MCHC (31.0-37.0) g/dl RDW (11.5-14.5) % Plt Count (120.0-450.0) 10^3/uL MPV (7.0-11.0) fl Neutrophils % (Manual) (50.0-70.0) % Lymphocytes % (Manual) (22.0-35.0) % Monocytes % (Manual) (1.0-6.0) % Platelet Evaluation (NORMAL) Sodium 137 (132-148) mmol/L Potassium 4.7 (3.6-5.0) mmol/L Chloride 98 (98-107) mmol/L Carbon Dioxide 28 (21-33) mmol/L Anion Gap 16 (10-20) BUN 25 H (7-21) mg/dL Creatinine 0.6 (0.5-1.4) mg/dL Est GFR ( Amer) > 60 Est GFR (Non-Af Amer) > 60 POC Glucose (mg/dL) 311 H 259 H (65-110) mg/dL Random Glucose 270 H (70-110) mg/dL Lactic Acid (0.7-2.1) mmol/L Calcium 9.0 (8.4-10.5) mg/dL Phosphorus 5.3 H (2.5-4.5) mg/dL Magnesium 2.3 H (1.7-2.2) mg/dL Total Bilirubin 1.0 (0.2-1.3) mg/dL AST 30 (15-59) U/L ALT 71 H (7-56) U/L Alkaline Phosphatase 56 (38-133) U/L Total Protein 7.3 (5.8-8.3) g/dL Albumin 4.1 (3.0-4.8) g/dL Globulin 3.2 gm/dL Albumin/Globulin Ratio 1.3 (1.1-1.8) Procalcitonin (0.19-0.49) NG/ML 01/11/17 01/11/17 01/11/17 Range/Units 06:00 06:00 05:50 WBC 16.2 H (4.5-11.0) 10^3/ul RBC 4.50 (3.5-6.1) 10^6/uL Hgb 12.7 L (14.0-18.0) gm/dL Hct 38.6 L (42.0-52.0) % MCV 85.8 (80.0-105.0) fL MCH 28.2 (25.0-35.0) pg MCHC 32.9 (31.0-37.0) g/dl RDW 13.3 (11.5-14.5) % Plt Count 259 (120.0-450.0) 10^3/uL MPV 9.2 (7.0-11.0) fl Neutrophils % (Manual) 91 H (50.0-70.0) % Lymphocytes % (Manual) 6 L (22.0-35.0) % Monocytes % (Manual) 2 (1.0-6.0) % Platelet Evaluation Normal (NORMAL) Sodium (132-148) mmol/L Potassium (3.6-5.0) mmol/L Chloride (98-107) mmol/L Carbon Dioxide (21-33) mmol/L Anion Gap (10-20) BUN (7-21) mg/dL Creatinine (0.5-1.4) mg/dL Est GFR ( Amer) Est GFR (Non-Af Amer) POC Glucose (mg/dL) (65-110) mg/dL Random Glucose (70-110) mg/dL Lactic Acid 1.5 (0.7-2.1) mmol/L Calcium (8.4-10.5) mg/dL Phosphorus (2.5-4.5) mg/dL Magnesium (1.7-2.2) mg/dL Total Bilirubin (0.2-1.3) mg/dL AST (15-59) U/L ALT (7-56) U/L Alkaline Phosphatase (38-133) U/L Total Protein (5.8-8.3) g/dL Albumin (3.0-4.8) g/dL Globulin gm/dL Albumin/Globulin Ratio (1.1-1.8) Procalcitonin < 0.05 L (0.19-0.49) NG/ML 01/10/17 01/10/17 01/10/17 Range/Units 21:33 16:25 11:06 WBC (4.5-11.0) 10^3/ul RBC (3.5-6.1) 10^6/uL Hgb (14.0-18.0) gm/dL Hct (42.0-52.0) % MCV (80.0-105.0) fL MCH (25.0-35.0) pg MCHC (31.0-37.0) g/dl RDW (11.5-14.5) % Plt Count (120.0-450.0) 10^3/uL MPV (7.0-11.0) fl Neutrophils % (Manual) (50.0-70.0) % Lymphocytes % (Manual) (22.0-35.0) % Monocytes % (Manual) (1.0-6.0) % Platelet Evaluation (NORMAL) Sodium (132-148) mmol/L Potassium (3.6-5.0) mmol/L Chloride (98-107) mmol/L Carbon Dioxide (21-33) mmol/L Anion Gap (10-20) BUN (7-21) mg/dL Creatinine (0.5-1.4) mg/dL Est GFR ( Amer) Est GFR (Non-Af Amer) POC Glucose (mg/dL) 398 H 191 H 171 H (65-110) mg/dL Random Glucose (70-110) mg/dL Lactic Acid (0.7-2.1) mmol/L Calcium (8.4-10.5) mg/dL Phosphorus (2.5-4.5) mg/dL Magnesium (1.7-2.2) mg/dL Total Bilirubin (0.2-1.3) mg/dL AST (15-59) U/L ALT (7-56) U/L Alkaline Phosphatase (38-133) U/L Total Protein (5.8-8.3) g/dL Albumin (3.0-4.8) g/dL Globulin gm/dL Albumin/Globulin Ratio (1.1-1.8) Procalcitonin (0.19-0.49) NG/ML 01/10/17 Range/Units 07:31 WBC (4.5-11.0) 10^3/ul RBC (3.5-6.1) 10^6/uL Hgb (14.0-18.0) gm/dL Hct (42.0-52.0) % MCV (80.0-105.0) fL MCH (25.0-35.0) pg MCHC (31.0-37.0) g/dl RDW (11.5-14.5) % Plt Count (120.0-450.0) 10^3/uL MPV (7.0-11.0) fl Neutrophils % (Manual) (50.0-70.0) % Lymphocytes % (Manual) (22.0-35.0) % Monocytes % (Manual) (1.0-6.0) % Platelet Evaluation (NORMAL) Sodium (132-148) mmol/L Potassium (3.6-5.0) mmol/L Chloride (98-107) mmol/L Carbon Dioxide (21-33) mmol/L Anion Gap (10-20) BUN (7-21) mg/dL Creatinine (0.5-1.4) mg/dL Est GFR ( Amer) Est GFR (Non-Af Amer) POC Glucose (mg/dL) 199 H (65-110) mg/dL Random Glucose (70-110) mg/dL Lactic Acid (0.7-2.1) mmol/L Calcium (8.4-10.5) mg/dL Phosphorus (2.5-4.5) mg/dL Magnesium (1.7-2.2) mg/dL Total Bilirubin (0.2-1.3) mg/dL AST (15-59) U/L ALT (7-56) U/L Alkaline Phosphatase (38-133) U/L Total Protein (5.8-8.3) g/dL Albumin (3.0-4.8) g/dL Globulin gm/dL Albumin/Globulin Ratio (1.1-1.8) Procalcitonin (0.19-0.49) NG/ML Laboratory Results - last 24 hr 01/10/17 01/10/17 01/10/17 07:31 11:06 16:25 WBC RBC Hgb Hct MCV MCH MCHC RDW Plt Count MPV Neutrophils % (Manual) Lymphocytes % (Manual) Monocytes % (Manual) Platelet Evaluation Sodium Potassium Chloride Carbon Dioxide Anion Gap BUN Creatinine Est GFR ( Amer) Est GFR (Non-Af Amer) POC Glucose (mg/dL) 199 H 171 H 191 H Random Glucose Lactic Acid Calcium Phosphorus Magnesium Total Bilirubin AST ALT Alkaline Phosphatase Total Protein Albumin Globulin Albumin/Globulin Ratio Procalcitonin 01/10/17 01/11/17 01/11/17 21:33 05:50 06:00 WBC RBC Hgb Hct MCV MCH MCHC RDW Plt Count MPV Neutrophils % (Manual) Lymphocytes % (Manual) Monocytes % (Manual) Platelet Evaluation Sodium Potassium Chloride Carbon Dioxide Anion Gap BUN Creatinine Est GFR ( Amer) Est GFR (Non-Af Amer) POC Glucose (mg/dL) 398 H Random Glucose Lactic Acid 1.5 Calcium Phosphorus Magnesium Total Bilirubin AST ALT Alkaline Phosphatase Total Protein Albumin Globulin Albumin/Globulin Ratio Procalcitonin < 0.05 L 01/11/17 01/11/17 01/11/17 06:00 06:00 07:37 WBC 16.2 H RBC 4.50 Hgb 12.7 L Hct 38.6 L MCV 85.8 MCH 28.2 MCHC 32.9 RDW 13.3 Plt Count 259 MPV 9.2 Neutrophils % (Manual) 91 H Lymphocytes % (Manual) 6 L Monocytes % (Manual) 2 Platelet Evaluation Normal Sodium 137 Potassium 4.7 Chloride 98 Carbon Dioxide 28 Anion Gap 16 BUN 25 H Creatinine 0.6 Est GFR ( Amer) > 60 Est GFR (Non-Af Amer) > 60 POC Glucose (mg/dL) 259 H Random Glucose 270 H Lactic Acid Calcium 9.0 Phosphorus 5.3 H Magnesium 2.3 H Total Bilirubin 1.0 AST 30 ALT 71 H Alkaline Phosphatase 56 Total Protein 7.3 Albumin 4.1 Globulin 3.2 Albumin/Globulin Ratio 1.3 Procalcitonin 01/11/17 11:10 WBC RBC Hgb Hct MCV MCH MCHC RDW Plt Count MPV Neutrophils % (Manual) Lymphocytes % (Manual) Monocytes % (Manual) Platelet Evaluation Sodium Potassium Chloride Carbon Dioxide Anion Gap BUN Creatinine Est GFR ( Amer) Est GFR (Non-Af Amer) POC Glucose (mg/dL) 311 H Random Glucose Lactic Acid Calcium Phosphorus Magnesium Total Bilirubin AST ALT Alkaline Phosphatase Total Protein Albumin Globulin Albumin/Globulin Ratio Procalcitonin Critical Care Progress Note - Nutrition Nutrition: Nutrition Category Date Time Status Consistent Carbohydrate [DIET] Diets 01/10/17 Dinner Ordered Addendum Addendum: 01/11/17 15:46 patient was seen, examined and discussed shoulder to shoulder with Dr. Tysno. His note refelcts my exam, assessment and plan, except as below. Meds/Labs/ONE reviewed 51 yo with status asthmaticus, requiring intubation, now resolved and successfully extubated yesterday. Alert and oriented x 3. Not in respiratory or otherwsie distress.Hemodynamically stable. Steroid taper, complete abx course for ?CAP, broncodilators. ccm time 40 min
[2017-01-12] MEDS: Albuterol-Ipratrop 3 mg / 0.5 (3 ml) UD IH SCH ×2 (02:20→07:17)
[2017-01-12 06:12] LABS: ADD MANUAL DIFF? NO
[2017-01-12 06:21] LABS: BASO # 0.01 K/mm3 (0.0-2.0); BASO % 0.1 % (0.0-3.0); GRAN # 12.04 (1.4-6.5); GRAN % 83.7 % (50.0-68.0); HEMATOCRIT 39.4 % (42.0-52.0); LYMPH # 1.7 (1.2-3.4); LYMPH % 11.5 % (22.0-35.0); MEAN CELL VOLUME 86.4 fL (80.0-105.0); MEAN CORPUSCULAR HEMOGLOBIN 28.1 pg (25.0-35.0); MEAN CORPUSCULAR HGB CONC 32.5 g/dl (31.0-37.0); MEAN PLATELET VOLUME 8.8 fl (7.0-11.0); MONO # 0.7 (0.1-0.6); MONO % 4.7 % (1.0-6.0); PLATELET COUNT 260 10^3/uL (120.0-450.0); RED CELL DISTRIBUTION WIDTH 13.2 % (11.5-14.5); WHITE BLOOD COUNT 14.4 10^3/ul (4.5-11.0)
[2017-01-12 06:43] LABS: ALB/GLOB RATIO 1.2 (1.1-1.8); ALKALINE PHOSPHATASE 52 U/L (38-133); ALT/SGPT 67 U/L (7-56); AST/SGOT 35 U/L (15-59); BILIRUBIN,TOTAL 1.1 mg/dL (0.2-1.3); BLOOD UREA NITROGEN 25 mg/dL (7-21); CARBON DIOXIDE 31 mmol/L (21-33); CHLORIDE 98 mmol/L (98-107); GFR AFRICAN-AMERICAN > 60; GLUCOSE,RANDOM 234 mg/dL (70-110); POTASSIUM 4.7 mmol/L (3.6-5.0); SODIUM 140 mmol/L (132-148); TOTAL PROTEIN 7.3 g/dL (5.8-8.3)
[2017-01-12] MEDS ORDERED: Pantoprazole 40 mg EC Tab PO SCH (07:30)
[2017-01-12] MEDS: Insulin Reg-MEDIUM-Coverage SC SCH ×2 (07:40→11:54)
--- NOTE | 2017-01-12 08:07 | PQF RESP ---
This form is a permanent part of the medical record Dr. Obregon, Documentation throughout the medical record refers to respiratory failure requiring intubation. With patient's history of asthma, it is necessary to specify if this was acute or chronic for coding purposes. Clarification of your documentation is requested to better reflect the severity of illness and intensity of treatment of your patient. Indicators present [] Use of Home Oxygen [x] Respiratory rate > 28 or <8/min (Labored respirations) [] PCO2 > 50 mm Hg or (Hypercapnia) (somnolence) [] PaO2 < 60 mm Hg or Hypoxemia (confusion) [] ABG blood gas pH < 7.35 [] SpO2 < 90% sat on Room Air [] Cyanosis [x] Unable to Speak in Full Sentences [x] Use of Accessory Muscles / Tripoding [x] Wheezing [] Other: [] Location in the medical record that reflects the above clinical findings: [H&P , ED note and consult] Treatment Provided: [Intubation, duonebs, solumedrol] PHYSICIAN'S RESPONSE Based on your medical judgment of the clinical indicators outlined above, are you treating this patient for a known or suspected: [] Acute Respiratory Failure (hypoxia or hypercapnia) [] Chronic Respiratory Failure (hypoxia or hypercapnia) [] Acute on Chronic Respiratory Failure (hypoxia or hypercapnia) [] Hypoxemia please specify ACUTE, CHRONIC or ACUTE on CHRONIC [] Other [x]_Acute asthma exacerbation [] If unable to determine, please check the box, sign and date. Present On Admission (POA) Indicator: [x] Present at the time of admission [] Not present at the time of admission [] Clinically Undetermined In responding to this query, please exercise your independent professional judgment. The fact that a question is asked does not imply that any particular answer is desired or expected. Thank you for your clarification on this documentation. If you have any questions please call:[ ] * Thank you, [ ]Catherine Croft [facility] #[id number] log chipper Chronic Respiratory Failure Description: Respiratory failure is a syndrome in which the respiratory system fails in one or both of its gas exchange functions: oxygenation and carbon dioxide elimination. In theory, respiratory failure is defined as a Pa02 value of <60 mm/Hg or a PaC02 of >50 mm/Hg. However, these values may be affected by renal compensation. Respiratory failure may be acute or chronic. While acute respiratory failure is characterized by life-threatening derangement in arterial blood gases and acid-base balance, the manifestations of chronic respiratory failure are less dramatic and may not be as readily apparent. Classifications: Respiratory failure may be classified as hypoxemic (usually characterized by Pa02 of <60 mm/Hg) or hypercapnic (usually characterized by PaC02 >50 mm/Hg) and either may be acute or chronic. Chronic hypercapnic respiratory failure develops over time and allows for renal compensation and an increase in bicarbonate concentration; therefore the pH is usually only slightly decreased. The distinction between acute and chronic hypoxemic respiratory failure cannot readily be made on the basis of ABGs; the clinical markers of chronic hypoxemia, such as polythycemia or cor pulmonale suggest a long standing disorder (chronic hypoxemic respiratory failure). Clinical Indicators: dyspnea at rest or "chronic" dyspnea, concomitant conditions such as polycythemia or cor pulmonale, requirement for continuous oxygen support, forced expiratory volume in one second (FEV1) of 49 or less, pursed lip breathing, "barrel" chest, hyperinflation by CXR, muscle wasting, malnutrition/obesity, poor exercise capacity, peripheral edema, description as a "blue bloater" (usually associated with chronic, obstructive bronchitis) or "pink puffer" (usually associated with emphysema) Risks: Chronic Hypoxemic Respiratory Failure - COPD, pulmonary fibrosis, asthma , pulmonary arterial hypertension, granulomatous lung diseases, congenital heart disease, bronchiectasis, kyphoscoliosis, obesity; Chronic Hypercapnic Respiratory Failure - COPD, severe asthma, myasthenia gravis, polyneuropathy, polio, head and cervical spine injuries, obesity hypoventilation syndrome. Treatment: supplemental oxygen, bronchodilators, corticosteroids, adequate nutrition, lung transplant References: Am. J. Respir. Crit. Care Med. "Global Strategy for the Diagnosis, Management and Prevention of COPD: GOLD Exectuive Summary," [place] - 2007; Proceedings of the [employer] [employer] "Mechanisms and Measurements of Dyspnea in COPD," Jim - 2006; WebMD; Respiratory Failure, Neri Beasley MD - 03/2006; Jaime's Principles of Internal Medicine, 17th edition. Acute Respiratory Failure Acute Respiratory Failure indicators include: ~Respirations >28 ~Air hunger ~Use of accessory muscles of respiration ~Inability to speak in full sentences Cyanosis ~Pulse ox <90% RA or <95% on O2 pH <7.35 or >7.45 ~pO2 < 60 mm Hg (or 10mm below COPD patient's baseline) ~pCO2 >50mm Hg (or 10mm above COPD patient's baseline) "Respiratory failure may be assigned as a principal diagnosis when it is the condition established after study to be chiefly responsible for occasioning admission to the hospital. The fact that the respiratory failure was managed without intubation and mechanical ventilation does not preclude its use." [facility], [facility] 1988, p. 7 MTDD
[2017-01-12] MEDS: Enoxaparin 40 mg Syringe SC SCH (09:01)
[2017-01-12] MEDS: Insulin Lispro (humaLOG) MIX 75/25(10 ml) SC SCH (09:01)
[2017-01-12] MEDS: Azithromycin 500MG/NS 250ml 500 MG/250 ML BAG IVPB SCH (09:02)
[2017-01-12] MEDS: cefTRIAXone 1 gm 1 GM/100 ML BAG IVPB SCH (09:02)
[2017-01-12] MEDS: MethylPREDNISolone 40 mg Vial IVP SCH (09:02)
[2017-01-12 09:45] VITALS: BP 100/63; O2SAT 98
[2017-01-12 12:05] VITALS: PULSE 91; RESP 20
[2017-01-12 12:06] VITALS: TEMP 98.3
--- NOTE | 2017-01-12 12:59 | CP.PCM.DIS ---
<Sandra Blood - Last Filed: 01/12/17 15:40> Provider - Provider Date of Admission: 01/09/17 15:04 Attending physician: Karlee Obregon MD Time Spent in preparation of Discharge (in minutes): 40 Hospital Course - Lab Results Lab Results: Micro Results 01/09/17 15:05 Urine Urine Culture - Final No Growth (<1,000 CFU/ML) 01/09/17 20:30 Naris MRSA Culture (Admit) - Final MRSA NOT DETECTED Most Recent Lab Values WBC 14.4 10^3/ul (4.5-11.0) H 01/12/17 05:40 RBC 4.56 10^6/uL (3.5-6.1) 01/12/17 05:40 Hgb 12.8 gm/dL (14.0-18.0) L 01/12/17 05:40 Hct 39.4 % (42.0-52.0) L 01/12/17 05:40 MCV 86.4 fL (80.0-105.0) 01/12/17 05:40 MCH 28.1 pg (25.0-35.0) 01/12/17 05:40 MCHC 32.5 g/dl (31.0-37.0) 01/12/17 05:40 RDW 13.2 % (11.5-14.5) 01/12/17 05:40 Plt Count 260 10^3/uL (120.0-450.0) 01/12/17 05:40 MPV 8.8 fl (7.0-11.0) 01/12/17 05:40 Gran % 83.7 % (50.0-68.0) H 01/12/17 05:40 Lymph % (Auto) 11.5 % (22.0-35.0) L 01/12/17 05:40 Rankin % (Auto) 4.7 % (1.0-6.0) 01/12/17 05:40 Eos % (Auto) 0.0 % (1.5-5.0) L 01/12/17 05:40 Baso % (Auto) 0.1 % (0.0-3.0) 01/12/17 05:40 Gran # 12.04 (1.4-6.5) H 01/12/17 05:40 Lymph # 1.7 (1.2-3.4) 01/12/17 05:40 Rankin # 0.7 (0.1-0.6) H 01/12/17 05:40 Eos # 0.0 (0.0-0.7) 01/12/17 05:40 Baso # 0.01 K/mm3 (0.0-2.0) 01/12/17 05:40 Neutrophils % (Manual) 91 % (50.0-70.0) H 01/11/17 06:00 Lymphocytes % (Manual) 6 % (22.0-35.0) L 01/11/17 06:00 Monocytes % (Manual) 2 % (1.0-6.0) 01/11/17 06:00 Platelet Evaluation Normal (NORMAL) 01/11/17 06:00 PT 10.7 Seconds (9.9-11.8) 01/09/17 14:18 INR 0.99 (0.93-1.08) 01/09/17 14:18 APTT 25.8 Seconds (23.7-30.8) 01/09/17 14:18 D-Dimer, Quantitative 0.19 mg/L FEU (0-0.50) 01/09/17 14:18 pCO2 39 mm/Hg (35-45) 01/10/17 05:00 pO2 225.0 mm/Hg (80-100) H 01/10/17 05:00 HCO3 26.5 mmol/L (21-28) 01/10/17 05:00 ABG pH 7.44 (7.35-7.45) 01/10/17 05:00 ABG Total CO2 27.7 mmol.L (22-28) 01/10/17 05:00 ABG O2 Saturation 99.5 % (95-98) H 01/10/17 05:00 ABG O2 Content 16.6 ML/dl (15-23) 01/10/17 05:00 ABG Base Excess 2.2 mmol/L (-2.0-3.0) 01/10/17 05:00 ABG Hemoglobin 11.8 g/dL (11.7-17.4) 01/10/17 05:00 ABG Carboxyhemoglobin 1.4 % (0.5-1.5) 01/10/17 05:00 POC ABG HHb (Measured) 0.5 % (0-5) 01/10/17 05:00 ABG Methemoglobin 1.1 % (0.0-3.0) 01/10/17 05:00 ABG O2 Capacity 16.7 mL/dl (16-24) 01/10/17 05:00 ABG Potassium 4.4 mmol/L (3.6-5.2) 01/09/17 14:35 VBG pH 7.35 (7.32-7.43) 01/09/17 17:50 VBG pCO2 48.0 (40-60) 01/09/17 17:50 VBG HCO3 26.5 mmol/l (21-28) 01/09/17 17:50 VBG Total CO2 28.0 mmol.L (22-28) 01/09/17 17:50 VBG O2 Sat (Calc) 99.1 % (40-65) H 01/09/17 17:50 VBG Base Excess 0.3 mmol/L (0.0-2.0) 01/09/17 17:50 VBG Potassium 4.6 mmol/L (3.6-5.2) 01/09/17 17:50 Hgb O2 Saturation 97.1 % (95.0-98.0) 01/10/17 05:00 Sodium 137.0 mmol/L (132-148) 01/09/17 17:50 Chloride 105.0 mmol/L (98-107) 01/09/17 17:50 Glucose 340 mg/dl (75-110) H 01/09/17 17:50 Lactate 3.0 mmol/L (0.7-2.1) H 01/09/17 17:50 FiO2 50.0 % 01/10/17 05:00 Sodium 140 mmol/L (132-148) 01/12/17 05:40 Potassium 4.7 mmol/L (3.6-5.0) 01/12/17 05:40 Chloride 98 mmol/L (98-107) 01/12/17 05:40 Carbon Dioxide 31 mmol/L (21-33) 01/12/17 05:40 Anion Gap 16 (10-20) 01/12/17 05:40 BUN 25 mg/dL (7-21) H 01/12/17 05:40 Creatinine 0.6 mg/dL (0.5-1.4) 01/12/17 05:40 Est GFR ( Amer) > 60 01/12/17 05:40 Est GFR (Non-Af Amer) > 60 01/12/17 05:40 POC Glucose (mg/dL) 189 mg/dL (65-110) H 01/12/17 07:24 Random Glucose 234 mg/dL (70-110) H 01/12/17 05:40 Hemoglobin A1c 7.0 % (4.2-6.5) H 01/12/17 05:40 Lactic Acid 1.5 mmol/L (0.7-2.1) 01/11/17 05:50 Calcium 9.0 mg/dL (8.4-10.5) 01/12/17 05:40 Phosphorus 5.3 mg/dL (2.5-4.5) H 01/11/17 06:00 Magnesium 2.3 mg/dL (1.7-2.2) H 01/11/17 06:00 Total Bilirubin 1.1 mg/dL (0.2-1.3) 01/12/17 05:40 AST 35 U/L (15-59) 01/12/17 05:40 ALT 67 U/L (7-56) H 01/12/17 05:40 Alkaline Phosphatase 52 U/L (38-133) 01/12/17 05:40 Lactate Dehydrogenase 446 U/L (333-699) 01/10/17 05:00 Total Creatine Kinase 142 U/L (35-230) 01/10/17 05:00 Troponin I < 0.01 ng/mL 01/10/17 05:00 NT-Pro-B Natriuret Pep 117 pg/mL (0-450) 01/10/17 10:01 Total Protein 7.3 g/dL (5.8-8.3) 01/12/17 05:40 Albumin 4.0 g/dL (3.0-4.8) 01/12/17 05:40 Globulin 3.3 gm/dL 01/12/17 05:40 Albumin/Globulin Ratio 1.2 (1.1-1.8) 01/12/17 05:40 Procalcitonin < 0.05 NG/ML (0.19-0.49) L 01/11/17 06:00 Arterial Blood Potassium 4.4 mmol/L (3.6-5.2) 01/09/17 14:35 Venous Blood Potassium 4.6 mmol/L (3.6-5.2) 01/09/17 17:50 Urine Color Straw (YELLOW) 01/09/17 15:05 Urine Appearance Clear (CLEAR) 01/09/17 15:05 Urine pH 6.5 (4.7-8.0) 01/09/17 15:05 Ur Specific [place] 1.015 (1.005-1.035) 01/09/17 15:05 Urine Protein Negative mg/dL (<30 mg/dL) 01/09/17 15:05 Urine Glucose (UA) >=1000 mg/dL (NEGATIVE) 01/09/17 15:05 Urine Ketones Negative mg/dL (NEGATIVE) 01/09/17 15:05 Urine Blood Negative (NEGATIVE) 01/09/17 15:05 Urine Nitrate Negative (NEGATIVE) 01/09/17 15:05 Urine Bilirubin Negative (NEGATIVE) 01/09/17 15:05 Urine Urobilinogen 1.0 E.U./dL (<1 E.U./dL) H 01/09/17 15:05 Ur Leukocyte Esterase Negative Krystian/uL (NEGATIVE) 01/09/17 15:05 Influenza Typ A,B (EIA) Negative for flu a/b (NEGATIVE) 01/09/17 14:30 - Hospital Course Hospital Course: 51 yo male with PMH of asthma, IDDM, systolic heart failure, HTN, DVT x1 10 yrs ago, and gastric bypass 5 years prior, CAD, presents with 3 days of gradually worsening SOB. In the ED patient experienced respiratory failure most likely due to asthma exacerbation, patient was intubated and admitted to ICU. Patient was also started steroids and antibiotics. Patient was able to be extubated the following day per ICU team. D dimer was negative. Patient was also found sepsis and code sepsis was called. Patient had elevated lactate, which began to trend down. Blood and urine cultures are negative. Procalcitonin was within normal limits. Trops were negative 3 times. Cardiology was consulted. Echo showed EF of 50% and normal left ventricular. Patient was transferred out of ICU. Repeat cxr showed no active disease. Patient is doing well, is no longer short of breath. Patient is stable for discharge home. Discharge instructions are to follow up with your Primary doctor in a week. Follow up with us customs and border officer and fabrication lead for outpatient stress test. New medications are prednisone, doxycycline, pepcid for 5 days, as well as ventolin HFA. discharge diagnoses is respiratory failure due to status asthmaticus. Discharge plan was discussed with patient, he is in agreement. Discharge Exam - Head Exam Head Exam: ATRAUMATIC - Eye Exam Eye Exam: Normal appearance - ENT Exam ENT Exam: Mucous Membranes Moist - Respiratory Exam Respiratory Exam: Clear to PA & Lateral, NORMAL BREATHING PATTERN, UNREMARKABLE. absent: Decreased Breath Sounds, Rales, Rhonchi, Wheezes, Respiratory Distress - Cardiovascular Exam Cardiovascular Exam: REGULAR RHYTHM, +S1, +S2. absent: Tachycardia, Systolic Murmur - GI/Abdominal Exam GI & Abdominal Exam: Normal Bowel Sounds, Soft, Unremarkable. absent: Distended , Firm, Tenderness - Extremities Exam Extremities exam: normal inspection - Neurological Exam Neurological exam: Alert, Oriented x3 - Skin Skin Exam: Dry, Intact, Normal Color, Warm Discharge Plan - Discharge Medications Prescriptions: Albuterol HFA [Ventolin HFA 90 mcg/actuation (8 g)] 2 puff IH [id number] #1 puff Doxycycline Hyclate 100 mg PO Q12 #10 capsule Famotidine [Pepcid] 40 mg PO DAILY #5 tablet Prednisone [Deltasone] 40 mg PO DAILY #5 tablet - Follow Up Plan Condition: CRITICAL Disposition: HOME/ ROUTINE Instructions: Asthma (DC), Asthma (GEN), Viral Pneumonia (DC), Viral Pneumonia (GEN) Additional Instructions: discharge instructions: - Follow up with your Primary doctor in a week. - Follow up with Special Education Kindergarten Teacher. - follow up with fabrication lead for outpatient stress test Go to Emergency room [facility] for any Respiratory Distress. New medications: prednisone 40mg for 5 days doxycycline 100mg for 5 days pepcid 40 mg for 5 days Ventolin HFA discharge diagnoses: respiratory failure due to status asthmaticus <Karlee Obregon - Last Filed: 01/12/17 15:59> Provider - Provider Date of Admission: 01/09/17 15:04 Attending physician: Karlee Obregon MD Hospital Course - Lab Results Lab Results: Micro Results 01/09/17 15:05 Urine Urine Culture - Final No Growth (<1,000 CFU/ML) 01/09/17 20:30 Naris MRSA Culture (Admit) - Final MRSA NOT DETECTED Most Recent Lab Values WBC 14.4 10^3/ul (4.5-11.0) H 01/12/17 05:40 RBC 4.56 10^6/uL (3.5-6.1) 01/12/17 05:40 Hgb 12.8 gm/dL (14.0-18.0) L 01/12/17 05:40 Hct 39.4 % (42.0-52.0) L 01/12/17 05:40 MCV 86.4 fL (80.0-105.0) 01/12/17 05:40 MCH 28.1 pg (25.0-35.0) 01/12/17 05:40 MCHC 32.5 g/dl (31.0-37.0) 01/12/17 05:40 RDW 13.2 % (11.5-14.5) 01/12/17 05:40 Plt Count 260 10^3/uL (120.0-450.0) 01/12/17 05:40 MPV 8.8 fl (7.0-11.0) 01/12/17 05:40 Gran % 83.7 % (50.0-68.0) H 01/12/17 05:40 Lymph % (Auto) 11.5 % (22.0-35.0) L 01/12/17 05:40 Rankin % (Auto) 4.7 % (1.0-6.0) 01/12/17 05:40 Eos % (Auto) 0.0 % (1.5-5.0) L 01/12/17 05:40 Baso % (Auto) 0.1 % (0.0-3.0) 01/12/17 05:40 Gran # 12.04 (1.4-6.5) H 01/12/17 05:40 Lymph # 1.7 (1.2-3.4) 01/12/17 05:40 Rankin # 0.7 (0.1-0.6) H 01/12/17 05:40 Eos # 0.0 (0.0-0.7) 01/12/17 05:40 Baso # 0.01 K/mm3 (0.0-2.0) 01/12/17 05:40 Neutrophils % (Manual) 91 % (50.0-70.0) H 01/11/17 06:00 Lymphocytes % (Manual) 6 % (22.0-35.0) L 01/11/17 06:00 Monocytes % (Manual) 2 % (1.0-6.0) 01/11/17 06:00 Platelet Evaluation Normal (NORMAL) 01/11/17 06:00 PT 10.7 Seconds (9.9-11.8) 01/09/17 14:18 INR 0.99 (0.93-1.08) 01/09/17 14:18 APTT 25.8 Seconds (23.7-30.8) 01/09/17 14:18 D-Dimer, Quantitative 0.19 mg/L FEU (0-0.50) 01/09/17 14:18 pCO2 39 mm/Hg (35-45) 01/10/17 05:00 pO2 225.0 mm/Hg (80-100) H 01/10/17 05:00 HCO3 26.5 mmol/L (21-28) 01/10/17 05:00 ABG pH 7.44 (7.35-7.45) 01/10/17 05:00 ABG Total CO2 27.7 mmol.L (22-28) 01/10/17 05:00 ABG O2 Saturation 99.5 % (95-98) H 01/10/17 05:00 ABG O2 Content 16.6 ML/dl (15-23) 01/10/17 05:00 ABG Base Excess 2.2 mmol/L (-2.0-3.0) 01/10/17 05:00 ABG Hemoglobin 11.8 g/dL (11.7-17.4) 01/10/17 05:00 ABG Carboxyhemoglobin 1.4 % (0.5-1.5) 01/10/17 05:00 POC ABG HHb (Measured) 0.5 % (0-5) 01/10/17 05:00 ABG Methemoglobin 1.1 % (0.0-3.0) 01/10/17 05:00 ABG O2 Capacity 16.7 mL/dl (16-24) 01/10/17 05:00 ABG Potassium 4.4 mmol/L (3.6-5.2) 01/09/17 14:35 VBG pH 7.35 (7.32-7.43) 01/09/17 17:50 VBG pCO2 48.0 (40-60) 01/09/17 17:50 VBG HCO3 26.5 mmol/l (21-28) 01/09/17 17:50 VBG Total CO2 28.0 mmol.L (22-28) 01/09/17 17:50 VBG O2 Sat (Calc) 99.1 % (40-65) H 01/09/17 17:50 VBG Base Excess 0.3 mmol/L (0.0-2.0) 01/09/17 17:50 VBG Potassium 4.6 mmol/L (3.6-5.2) 01/09/17 17:50 Hgb O2 Saturation 97.1 % (95.0-98.0) 01/10/17 05:00 Sodium 137.0 mmol/L (132-148) 01/09/17 17:50 Chloride 105.0 mmol/L (98-107) 01/09/17 17:50 Glucose 340 mg/dl (75-110) H 01/09/17 17:50 Lactate 3.0 mmol/L (0.7-2.1) H 01/09/17 17:50 FiO2 50.0 % 01/10/17 05:00 Sodium 140 mmol/L (132-148) 01/12/17 05:40 Potassium 4.7 mmol/L (3.6-5.0) 01/12/17 05:40 Chloride 98 mmol/L (98-107) 01/12/17 05:40 Carbon Dioxide 31 mmol/L (21-33) 01/12/17 05:40 Anion Gap 16 (10-20) 01/12/17 05:40 BUN 25 mg/dL (7-21) H 01/12/17 05:40 Creatinine 0.6 mg/dL (0.5-1.4) 01/12/17 05:40 Est GFR ( Amer) > 60 01/12/17 05:40 Est GFR (Non-Af Amer) > 60 01/12/17 05:40 POC Glucose (mg/dL) 189 mg/dL (65-110) H 01/12/17 07:24 Random Glucose 234 mg/dL (70-110) H 01/12/17 05:40 Hemoglobin A1c 7.0 % (4.2-6.5) H 01/12/17 05:40 Lactic Acid 1.5 mmol/L (0.7-2.1) 01/11/17 05:50 Calcium 9.0 mg/dL (8.4-10.5) 01/12/17 05:40 Phosphorus 5.3 mg/dL (2.5-4.5) H 01/11/17 06:00 Magnesium 2.3 mg/dL (1.7-2.2) H 01/11/17 06:00 Total Bilirubin 1.1 mg/dL (0.2-1.3) 01/12/17 05:40 AST 35 U/L (15-59) 01/12/17 05:40 ALT 67 U/L (7-56) H 01/12/17 05:40 Alkaline Phosphatase 52 U/L (38-133) 01/12/17 05:40 Lactate Dehydrogenase 446 U/L (333-699) 01/10/17 05:00 Total Creatine Kinase 142 U/L (35-230) 01/10/17 05:00 Troponin I < 0.01 ng/mL 01/10/17 05:00 NT-Pro-B Natriuret Pep 117 pg/mL (0-450) 01/10/17 10:01 Total Protein 7.3 g/dL (5.8-8.3) 01/12/17 05:40 Albumin 4.0 g/dL (3.0-4.8) 01/12/17 05:40 Globulin 3.3 gm/dL 01/12/17 05:40 Albumin/Globulin Ratio 1.2 (1.1-1.8) 01/12/17 05:40 Procalcitonin < 0.05 NG/ML (0.19-0.49) L 01/11/17 06:00 Arterial Blood Potassium 4.4 mmol/L (3.6-5.2) 01/09/17 14:35 Venous Blood Potassium 4.6 mmol/L (3.6-5.2) 01/09/17 17:50 Urine Color Straw (YELLOW) 01/09/17 15:05 Urine Appearance Clear (CLEAR) 01/09/17 15:05 Urine pH 6.5 (4.7-8.0) 01/09/17 15:05 Ur Specific [place] 1.015 (1.005-1.035) 01/09/17 15:05 Urine Protein Negative mg/dL (<30 mg/dL) 01/09/17 15:05 Urine Glucose (UA) >=1000 mg/dL (NEGATIVE) 01/09/17 15:05 Urine Ketones Negative mg/dL (NEGATIVE) 01/09/17 15:05 Urine Blood Negative (NEGATIVE) 01/09/17 15:05 Urine Nitrate Negative (NEGATIVE) 01/09/17 15:05 Urine Bilirubin Negative (NEGATIVE) 01/09/17 15:05 Urine Urobilinogen 1.0 E.U./dL (<1 E.U./dL) H 01/09/17 15:05 Ur Leukocyte Esterase Negative Krystian/uL (NEGATIVE) 01/09/17 15:05 Influenza Typ A,B (EIA) Negative for flu a/b (NEGATIVE) 01/09/17 14:30 Attending/Attestation - Attestation I have personally seen and examined this patient.: Yes I have fully participated in the care of the patient.: Yes I have reviewed all pertinent clinical information, including history, physical exam and plan: Yes Notes (Text): I have seen and examined the patient with the resident at the bedside. Agree with the above note with the following additions/ exceptions: Briefly this is 51 year old male with history of asthma, IDDM, CHF (EF~37%), HTN, history of DVT 10 years ago, gastric bypass 5 years ago, CAD who got admitted for evaluation of worsening of shortness of breath and found to have respiratory distress most likely due to asthma exacerbation and required intubation. Patient got extubated 2 days ago. He has been oxygenating well on room air. Able to talk in complete sentences. Denies any complaints. Able to eat without any problem. He is requesting to be sent home. He is able to walk in the hallway without any problem. As CT scan showed suspected CAP, will complete antibiotics course. Will also give ventolin HFA and 5 days steroids course. Continue aspirin, plavix, crestor and diovan. Discussed with Dr Smith. Echo result reviewed. Continue insulin. PT eval ordered but patient does not want to wait for evaluation. Upon discharge patient will follow up with Dr Alexandra Villagran. Dr Karlee Obregon
== END 2017-01-12 14:36 | disposition home or self-care (01) | DRG 871 ==
LOC: ED 13:55 → ERH 15:04 → CCU 17:07
PROVIDERS: ADMIT Internal Medicine; ATTEND Hospitalist
PROC: 5A1935Z Respiratory Ventilation, Less than 24 Consecutive Hours (ICD-10-PCS; principal; 2017-01-09)
PROC: 0BH17EZ Insertion of Endotracheal Airway into Trachea, Via Natural or Artificial Opening (ICD-10-PCS; 2017-01-09)
PROC: 3E0F7GC Introduction of Other Therapeutic Substance into Respiratory Tract, Via Natural or Artificial Opening (ICD-10-PCS; 2017-01-09)
DX: A41.9 Sepsis, unspecified organism (principal); J96.90 Respiratory failure, unspecified, unspecified whether with hypoxia or hypercapnia; J45.52 Severe persistent asthma with status asthmaticus; I50.22 Chronic systolic (congestive) heart failure; I42.0 Dilated cardiomyopathy; I11.0 Hypertensive heart disease with heart failure; E11.65 Type 2 diabetes mellitus with hyperglycemia; I25.10 Atherosclerotic heart disease of native coronary artery without angina pectoris; E78.00 Pure hypercholesterolemia, unspecified; F41.9 Anxiety disorder, unspecified; Z79.4 Long term (current) use of insulin; Z86.718 Personal history of other venous thrombosis and embolism; Z98.84 Bariatric surgery status; Z79.02 Long term (current) use of antithrombotics/antiplatelets; Z79.82 Long term (current) use of aspirin

== ENCOUNTER 2017-09-14 10:54 | Observation (INO) | payer MEDICARE, MEDICAID ==
[2017-09-14 10:54] VITALS: BMI 24.4
[2017-09-14] MEDS ORDERED: Albuterol-Ipratrop 3 mg / 0.5 (3 ml) UD ONE (11:04)
[2017-09-14] MEDS: Albuterol 0.083% Inhal Sol (2.5 mg/3 mL) UD IH STA ×2 (11:50→12:15)
[2017-09-14] MEDS ORDERED: Magnesium Sulfate 2 GM in Sodium Chloride 0.9% 100 ML IVPB ONE (11:54)
[2017-09-14] MEDS ORDERED: Albuterol 0.083% Inhal Sol (2.5 mg/3 mL) UD INH STA ×2 (11:55→12:13)
[2017-09-14] MEDS ORDERED: Sodium Chloride 0.9% 1,000 ML IV STA (12:12)
[2017-09-14] MEDS ORDERED: Etomidate 20 mg/10ml Inj IV ONE (12:18)
[2017-09-14] MEDS ORDERED: Succinylcholine 200 mg/10 ml Inj IV ONE (12:18)
[2017-09-14 12:27] LABS: BASO # 0.02 K/mm3 (0.0-2.0); BASO % 0.2 % (0.0-3.0); EOS % 0.2 % (1.5-5.0); GRAN # 9.79 (1.4-6.5); GRAN % 81.4 % (50.0-68.0); HEMOGLOBIN 13.2 g/dL (14.0-18.0); LYMPH # 1.6 (1.2-3.4); MEAN CELL VOLUME 85.8 fl (80.0-105.0); MEAN CORPUSCULAR HEMOGLOBIN 28.4 pg (25.0-35.0); MEAN CORPUSCULAR HGB CONC 33.2 g/dl (31.0-37.0); MEAN PLATELET VOLUME 9.3 fl (7.0-11.0); MONO # 0.6 (0.1-0.6); MONO % 5.2 % (1.0-6.0); RBC 4.64 10^6/uL (3.5-6.1); RED CELL DISTRIBUTION WIDTH 13.7 % (11.5-14.5)
[2017-09-14 12:30] LABS: ALBUMIN 4.7 g/dL (3.0-4.8); ALT/SGPT 28 U/L (7-56); AST/SGOT 25 U/L (17-59); BLOOD UREA NITROGEN 23 mg/dL (7-21); CALCIUM 9.4 mg/dL (8.4-10.5); GFR AFRICAN-AMERICAN > 60; GFR NON-AFRICAN AMERICAN > 60
[2017-09-14 12:41] LABS: ALB/GLOB RATIO 1.7 (1.1-1.8)
--- NOTE | 2017-09-14 12:41 | RAD ---
HISTORY: chest pain COMPARISON: 01/11/2017 FINDINGS: LUNGS: No active pulmonary disease. PLEURA: No significant pleural effusion identified, no pneumothorax apparent. CARDIOVASCULAR: Normal. OSSEOUS STRUCTURES: No significant abnormalities. VISUALIZED UPPER ABDOMEN: Normal. OTHER FINDINGS: None. IMPRESSION: No active disease.
[2017-09-14 12:46] LABS: ARTERIAL BLOOD GAS HCO3 21.3 mmol/L (21-28); ARTERIAL BLOOD GAS O2 CAPACITY 17.4 mL/dl (16-24); ARTERIAL BLOOD GAS O2 CONTENT 17.3 ML/dl (15-23); ARTERIAL BLOOD GAS O2 SAT 99.7 % (95-98); ARTERIAL BLOOD GAS PCO2 28 mm/Hg (35-45); ARTERIAL BLOOD GAS PH 7.49 (7.35-7.45); ARTERIAL BLOOD GAS TCO2 22.2 mmol.L (22-28)
--- NOTE | 2017-09-14 13:28 | ED PDOC ---
Arrival/HPI - General Chief Complaint: Shortness Of Breath Time Seen by Provider: 09/14/17 11:47 Historian: Patient - Critical Care Critical Care Minutes: 60 minutes - History of Present Illness Narrative History of Present Illness (Text): 09/14/17 12:00 52 year old male, whose past medical history includes asthma, diabetes, hypertension and gastric bypass (5 years ago), presents to the emergency department by BLS complaining of right sided chest pain associated with shortness of breath. Patient reports he was was seen by PMD on 09/12/17 but he states the symptoms have exacerbated. Patient's family reports possible anxiety component. Patient reports nausea, vomiting, and blurred vision, denies any fever, chills, diarrhea, urinary symptoms, back pain, neck pain, headache, dizziness, or any other complaints. PMD: Dr. Morris Laboratory Assistant: Dr. Knutson Time/Duration: Other (2 days) Symptom Onset: Gradual Symptom Course: Unchanged Activities at Onset: Light Context: Home Past Medical History - Provider Review Nursing Documentation Reviewed: Yes - Infectious Disease Hx of Infectious Diseases: None - Cardiac Hx Hypertension: Yes Hx Pacemaker: No - Pulmonary Hx Asthma: Yes - Neurological Hx Paralysis: No - Hematological/Oncological Hx Blood Transfusions: No - Musculoskeletal/Rheumatological Hx Musculoskeletal Disorders: Yes - Psychiatric Hx Emotional Abuse: No Hx Physical Abuse: No Hx Substance Use: No - Surgical History Hx Gastric Bypass Surgery: Yes - Anesthesia Hx Anesthesia: Yes Hx Anesthesia Reactions: No Hx Malignant Hyperthermia: No - Suicidal Assessment Feels Threatened In Home Enviroment: No Family/Social History - Physician Review Nursing Documentation Reviewed: Yes Family/Social History: No Known Family HX Smoking Status: Never Smoked Hx Alcohol Use: No Hx Substance Use: No Allergies/Home Meds Allergies/Adverse Reactions: Allergies No Known Allergies Allergy (Verified 09/14/17 11:15) Home Medications: Home Meds Medication Instructions Recorded Confirmed Metformin HCl 1,000 mg PO BID 10/09/13 01/09/17 Metoprolol Tartrate 25 mg PO DAILY 10/09/13 01/09/17 Montelukast [Singulair] 10 mg PO DAILY 10/09/13 01/09/17 Rosuvastatin Calcium [Crestor] 10 mg PO DAILY 10/09/13 01/09/17 Sitagliptin Phosphate [Januvia] 100 mg PO DAILY 10/09/13 01/09/17 Albuterol 0.042% [Albuterol 0.042% 3 ml NEB BID 01/12/16 01/09/17 Inhal Trista (1.25mg/3ml) UD] Albuterol Sulfate [Proair Hfa] 2 puff IH DAILY 01/12/16 01/09/17 Aspirin [Ecotrin] 81 mg PO DAILY 01/12/16 01/09/17 Clopidogrel [Plavix] 75 mg PO DAILY 01/12/16 01/09/17 Insulin Human NPH/Reg [HumuLIN 15 units SC ACBD 01/12/16 01/09/17 70/30 (NPH/Reg)] Lactulose [Kristalose] 20 gm PO BID 01/12/16 01/09/17 Valsartan [Diovan] 40 mg PO DAILY 01/12/16 01/09/17 Advair Diskus 250/50 1 inh INH BID 01/13/16 01/09/17 Prednisone [Deltasone] 20 mg PO DAILY 01/09/17 01/09/17 levoFLOXacin [Levaquin] 750 mg PO DAILY 01/09/17 01/09/17 Review of Systems - Physician Review All systems were reviewed & negative as marked: Yes - Review of Systems Constitutional: absent: Fevers, Other Eyes: Vision Changes Respiratory: SOB Cardiovascular: Chest Pain Gastrointestinal: Nausea, Vomiting. absent: Diarrhea Genitourinary Male: absent: Dysuria, Frequency, Hematuria Musculoskeletal: absent: Back Pain, Neck Pain Neurological: absent: Headache, Dizziness Physical Exam Vital Signs Reviewed: Yes Vital Signs Temp Pulse Resp BP Pulse Ox 09/14/17 18:30 117 H 18 106/68 99 09/14/17 16:42 112 H 20 104/63 99 09/14/17 15:00 109 H 20 114/57 L 98 09/14/17 12:54 113 H 20 113/64 100 09/14/17 12:00 112 H 09/14/17 11:09 98.4 F 98 H 25 H 134/71 100 09/14/17 10:54 30 H 99 Temperature: Afebrile Blood Pressure: Normal Pulse: Tachycardic Respiratory Rate: Tachypneic Appearance: Positive for: Well-Appearing, Non-Toxic, Comfortable Pain Distress: Moderate Mental Status: Positive for: Alert and Oriented X 3 Finger Stick Blood Glucose: 223 - Systems Exam Head: Present: Atraumatic, Normocephalic Pupils: Present: PERRL Extroacular Muscles: Present: EOMI Conjunctiva: Present: Normal Mouth: Present: Moist Mucous Membranes Neck: Present: Normal Range of Motion Respiratory/Chest: Present: Accessory Muscle Use, Wheezes (Diffused wheezing ) , Tender to Palpation, Other (Speaking in short sentences) Cardiovascular: Present: Normal S1, S2, Tachycardic. No: Murmurs Abdomen: Present: Normal Bowel Sounds. No: Tenderness, Distention, Peritoneal Signs Back: Present: Normal Inspection Upper Extremity: Present: Normal Inspection. No: Cyanosis, Edema Lower Extremity: Present: Normal Inspection. No: Edema Neurological: Present: GCS=15, CN II-XII Intact, Speech Normal, Other (minimal peripheral trumors) Skin: Present: Warm, Dry, Normal Color. No: Rashes Psychiatric: Present: Alert, Oriented x 3, Normal Insight, Normal Concentration Medical Decision Making ED Course and Treatment: 09/14/17 13:27 Impression: 52 year old male presents complaining of right sided chest pain associated with shortness of breath. Patient also reports nasuea, vomiting, and blurred vision. Plan: -- VBG -- Labs -- Chest X-ray -- Albuterol x3 -- Ativan -- Brethine Inj -- Magnesium Sulfate -- IV Fluids -- BIPAP Procudure -- BIPAP/CPAP setting adjustment -- Reassess and disposition Prior Visits: Notes and results from previous visits were reviewed. Patient was last seen in the emergency department on 01/09/17 presents complaining of shortness of breath for the past 3 days associated with right sided discomfort. Patient was intubated and admitted. Progress Notes: Critical Care: Patient was seen immediately on arrival because of high probability of imminent or life threatening deterioration in patient's condition. Initial assessment, history, and exam were done. Information was taken from transport personnel. Patient was observed at bedside for initial response to treatment. Respiratory Therapist was contacted, and case discussed. Patient was re-evaluated and observed at bedside for subsequent response to continuing treatment multiple times. Lab tests were reviewed. X-Rays were reviewed. Computer monitor was checked for vital sign trends and cardiac rhythm. Records and documentation completed. PROCEDURE: Chest X-ray Dictator : Ellis Goyal MD Report Date : 09/14/2017 12:39:52 IMPRESSION: No active disease. EKG shows NSR at 98 BPM Interpreted by me. 09/14/17 13:08 Intubation procedure attempted. During attempt patient began to be agitated and all symptoms resolved. Lungs are clear, however patient reports persistent right sided chest pain. Repeat Chest X-ray ordered. PROCEDURE: Chest X-ray Dictator : Ellis Goyal MD Report Date : 09/14/2017 13:56 IMPRESSION: No active disease. No significant interval change compared to prior examination. 09/14/17 13:48 Discussed case with Patient Services Rep who is aware and agrees with the plan. Patient will be admitted to to remote telemetry. 09/14/17 19:13 - Critical Care Critical Care Minutes: 60 minutes - Lab Interpretations Lab Results: 09/14/17 12:10 09/14/17 12:10 Lab Results 09/14/17 12:40: pCO2 28 L, pO2 318.0 H, HCO3 21.3, ABG pH 7.49 H, ABG Total CO2 22.2, ABG O2 Saturation 99.7 H, ABG O2 Content 17.3, ABG Base Excess -1.1, ABG Hemoglobin 12.0, ABG Carboxyhemoglobin 1.5, POC ABG HHb (Measured) 0.3, ABG Methemoglobin 0.6, ABG O2 Capacity 17.4, Hgb O2 Saturation 97.6, FiO2 50.0 09/14/17 12:10: Direct Bilirubin 0.6 H 09/14/17 12:10: WBC 12.0 H, RBC 4.64, Hgb 13.2 L, Hct 39.8 L, MCV 85.8, MCH 28.4 , MCHC 33.2, RDW 13.7, Plt Count 321, MPV 9.3, Gran % 81.4 H, Lymph % (Auto) 13.0 L, [place] % (Auto) 5.2, Eos % (Auto) 0.2 L, Baso % (Auto) 0.2, Gran # 9.79 H , Lymph # 1.6, [place] # 0.6, Eos # 0.0, Baso # 0.02 09/14/17 12:10: Sodium 138, Potassium 3.7, Chloride 100, Carbon Dioxide 26, Anion Gap 16, BUN 23 H, Creatinine 0.8, Est GFR ( Amer) > 60, Est GFR ( Non-Af Amer) > 60, Random Glucose 232 H, Calcium 9.4, Total Bilirubin 1.5 H, AST 25, ALT 28, Alkaline Phosphatase 53, Total Protein 7.4, Albumin 4.7, Globulin 2.8, Albumin/Globulin Ratio 1.7 I have reviewed the lab results: Yes - RAD Interpretation Radiology Orders: 09/14/17 11:47 CHEST PORTABLE [RAD] Stat 09/14/17 13:17 CHEST PORTABLE [RAD] Stat - EKG Interpretation Interpreted by ED Physician: Yes Type: 12 lead EKG - Medication Orders Current Medication Orders: Discontinued Medications Albuterol Sulfate (Albuterol 0.083% Inhal Trista (2.5 Mg/3 Ml) Ud) 2.5 mg IH STAT STA Stop: 09/14/17 11:48 Last Admin: 09/14/17 12:15 Dose: 2.5 mg Albuterol Sulfate (Albuterol 0.083% Inhal Trista (2.5 Mg/3 Ml) Ud) 2.5 mg INH STAT STA Stop: 09/14/17 11:56 Last Admin: 09/14/17 12:16 Dose: 2.5 mg Albuterol Sulfate (Albuterol 0.083% Inhal Trista (2.5 Mg/3 Ml) Ud) 2.5 mg INH STAT STA Stop: 09/14/17 12:14 Last Admin: 09/14/17 12:15 Dose: 2.5 mg Albuterol/Ipratropium (Duoneb 3 Mg/0.5 Mg (3 Ml) Ud) 3 ml IH Q15M STA Stop: 09/14/17 17:18 Last Admin: 09/14/17 18:56 Dose: 3 ml Albuterol/Ipratropium (Duoneb 3 Mg/0.5 Mg (3 Ml) Ud) 3 ml IH [id number] ENE Albuterol/Ipratropium (Duoneb 3 Mg/0.5 Mg (3 Ml) Ud) 3 ml IH Q2 PRN PRN Reason: Shortness of Breath Albuterol/Ipratropium (Duoneb 3 Mg/0.5 Mg (3 Ml) Ud) 3 ml IH Q4 ENE Last Admin: 09/15/17 15:50 Dose: 3 ml Aspirin (Ecotrin) 81 mg PO DAILY [facility] Last Admin: 09/15/17 10:14 Dose: Not Given Non-Admin Reason: NPO Atorvastatin Calcium (Lipitor) 40 mg PO DAILY [facility] Last Admin: 09/15/17 10:20 Dose: Not Given Non-Admin Reason: NPO Clopidogrel Bisulfate (Plavix) 75 mg PO DAILY [facility] Last Admin: 09/15/17 09:32 Dose: 75 mg Heparin Sodium (Porcine) (Heparin) 5,000 units SC Q12 [facility] PRN Reason: Protocol Last Admin: 09/15/17 09:29 Dose: 5,000 units Subcutaneous Administrations Document 09/15/17 09:29 JW (Rec: 09/15/17 09:29 [id number]) Charges for Administration # of Subcutaneous Administrations 1 Magnesium Sulfate 2 gm/ Sodium (Chloride) 104 mls @ 102 mls/hr IVPB ONCE ONE Stop: 09/14/17 12:55 Last Admin: 09/14/17 12:07 Dose: 102 mls/hr eMAR Start Stop Document 09/14/17 12:07 [employer] (Rec: 09/14/17 12:07 [employer] [id number]) Intravenous Solution Start Date 09/14/17 Start Time 12:07 End Date 09/14/17 End time 13:07 Total Infusion Time 60 Sodium Chloride (Sodium Chloride 0.9%) 1,000 mls @ 999 mls/hr IV .Q1H1M STA Stop: 09/14/17 13:12 Last Admin: 09/14/17 12:15 Dose: 999 mls/hr eMAR Start Stop Document 09/14/17 12:15 [employer] (Rec: 09/14/17 19:47 [employer] [id number]) Intravenous Solution Start Date 09/14/17 Start Time 12:15 End Date 09/14/17 End time 13:15 Total Infusion Time 60 Sodium Chloride (Sodium Chloride 0.9%) 1,000 mls @ 100 mls/hr IV .Q10H [facility] Last Admin: 09/15/17 05:23 Dose: 100 mls/hr eMAR Start Stop Document 09/15/17 05:23 RR (Rec: 09/15/17 05:23 RR [id number]) Intravenous Solution Start Date 09/15/17 Start Time 05:23 Levofloxacin/Dextrose (Levaquin 750mg) 750 mg in 150 mls @ 100 mls/hr IVPB DAILY ENE PRN Reason: Protocol Last Admin: 09/15/17 10:15 Dose: 100 mls/hr eMAR Start Stop Document 09/15/17 10:15 JW (Rec: 09/15/17 10:15 JW [id number]) Intravenous Solution Start Date 09/15/17 Start Time 10:15 End Date 09/15/17 End time 11:45 Total Infusion Time 90 Insulin Human Regular (Humulin R Med) 0 units SC ACHS ENE PRN Reason: Protocol Last Admin: 09/15/17 14:14 Dose: Not Given Non-Admin Reason: NPO Ketorolac Tromethamine (Toradol) 60 mg IM STAT STA Stop: 09/14/17 20:38 Last Admin: 09/14/17 21:58 Dose: 60 mg MAR Pain Assessment Document 09/14/17 21:58 RR (Rec: 09/14/17 21:59 RR [id number]) Pain Reassessment Is this a pain reassessment? No Sleep Is patient sleeping during reassessment? No Presence of Pain Presence of Pain Yes Pain Scale Used Pain Scale Used Numeric Location Left, Right or Bilateral Right Upper or Lower Upper Pain Location Body Site Chest Description Description Constant Intensity of Pain at present 9 Pain Behavior Guarding Facial Grimacing Alleviating Factors/Management Medication Techniques Alleviating Factors Medication IM Administration Charges Document 09/14/17 21:58 RR (Rec: 09/14/17 21:59 RR [id number]) Injection Site MAR Injection Site Left Deltoid Charges for Administration # of IM Administrations 1 Lorazepam (Ativan) 1 mg IVP ONCE ONE PRN Reason: Protocol Stop: 09/14/17 12:47 Last Admin: 09/14/17 12:47 Dose: 1 mg IVP Administration Document 09/14/17 12:47 [employer] (Rec: 09/14/17 19:50 [employer] [id number]) Charges for Administration # of IVP Administrations 1 Re-Assess: Reassess Psych Meds Document 09/14/17 13:17 RR (Rec: 09/14/17 20:22 [email or web address] Reassess Psych Med Effective Methylprednisolone (Solu-Medrol) 125 mg IVP STAT STA Stop: 09/14/17 11:48 Last Admin: 09/14/17 12:07 Dose: 125 mg IVP Administration Document 09/14/17 12:07 [employer] (Rec: 09/14/17 12:07 [employer] [id number]) Charges for Administration # of IVP Administrations 1 Methylprednisolone (Solu-Medrol) 60 mg IVP DAILY [facility] Last Admin: 09/15/17 09:32 Dose: 60 mg IVP Administration Document 09/15/17 09:32 (Rec: 09/15/17 09:33 [id number][facility] Charges for Administration # of IVP Administrations 1 Metoprolol Tartrate (Lopressor) 25 mg PO DAILY [facility] Last Admin: 09/15/17 10:20 Dose: Not Given Non-Admin Reason: NPO Montelukast Sodium (Singulair) 10 mg PO DAILY [facility] Last Admin: 09/15/17 09:32 Dose: 10 mg Morphine Sulfate (Morphine) 2 mg IVP Q4H PRN PRN Reason: Pain, moderate (4-7) Last Admin: 09/15/17 11:24 Dose: 2 mg MAR Pain Assessment Document 09/15/17 11:24 (Rec: 09/15/17 11:25 [id number][facility] Pain Reassessment Is this a pain reassessment? No Presence of Pain Presence of Pain Yes Location Pain Location Body Site Abdomen IVP Administration Document 09/15/17 11:24 (Rec: 09/15/17 11:25 [id number][facility] Charges for Administration # of IVP Administrations 1 Morphine Sulfate (Morphine) 2 mg IVP ONCE ONE Stop: 09/15/17 14:03 Last Admin: 09/15/17 14:11 Dose: 2 mg MAR Pain Assessment Document 09/15/17 14:11 (Rec: 09/15/17 14:11 [id number][facility] Pain Reassessment Is this a pain reassessment? No Sleep Is patient sleeping during reassessment? No Presence of Pain Presence of Pain Yes Location Pain Location Body Site Abdomen IVP Administration Document 09/15/17 14:11 (Rec: 09/15/17 14:11 [id number]) Charges for Administration # of IVP Administrations 1 Ondansetron HCl (Zofran Inj) 4 mg IVP Q4H PRN PRN Reason: Nausea/Vomiting Last Admin: 09/15/17 12:08 Dose: 4 mg IVP Administration Document 09/15/17 12:08 (Rec: 09/15/17 12:09 [id number]) Charges for Administration # of IVP Administrations 1 Oxycodone/Acetaminophen (Percocet 5/325 Mg Tab) 1 tab PO Q4H PRN PRN Reason: Pain, Mild (1-3) Stop: 09/18/17 08:31 Last Admin: 09/15/17 09:32 Dose: 1 tab MAR Pain Assessment Document 09/15/17 09:32 RAMESH (Rec: 09/15/17 09:32 RAMESH [id number]) Pain Reassessment Is this a pain reassessment? No Pantoprazole Sodium (Protonix Inj) 40 mg IVP DAILY [facility] Last Admin: 09/14/17 18:55 Dose: 40 mg IVP Administration Document 09/14/17 18:55 [facility] (Rec: 09/14/17 18:55 [facility] [id number]) Charges for Administration # of IVP Administrations 1 Pantoprazole Sodium (Protonix Ec Tab) 40 mg PO 0600 [facility] Pantoprazole Sodium (Protonix Ec Tab) 40 mg PO ONCE ONE Stop: 09/16/17 08:33 Pantoprazole Sodium (Protonix Inj) 40 mg IVP DAILY [facility] Last Admin: 09/15/17 12:08 Dose: 40 mg IVP Administration Document 09/15/17 12:08 RAMESH (Rec: 09/15/17 12:08 JW [id number]) Charges for Administration # of IVP Administrations 1 Terbutaline Sulfate (Brethine Inj) 0.25 mg SC STAT STA Stop: 09/14/17 12:01 Last Admin: 09/14/17 12:15 Dose: 0.25 mg Subcutaneous Administrations Document 09/14/17 12:15 [employer] (Rec: 09/14/17 12:15 [employer] [id number]) Injection Site MAR Injection Site Left Deltoid Charges for Administration # of Subcutaneous Administrations 1 - Scribe Statement The provider has reviewed the documentation as recorded by the Scribe Jone Median Provider Scribe Attestation: All medical record entries made by the Scribe were at my direction and personally dictated by me. I have reviewed the chart and agree that the record accurately reflects my personal performance of the history, physical exam, medical decision making, and the department course for this patient. I have also personally directed, reviewed, and agree with the discharge instructions and disposition. Disposition/Present on Arrival - Present on Arrival Any Indicators Present on Arrival: No History of DVT/PE: No History of Uncontrolled Diabetes: Yes Urinary Catheter: No History of Decub. Ulcer: No History Surgical Site Infection Following: None - Disposition Have Diagnosis and Disposition been Completed?: Yes Diagnosis: Status asthmaticus Disposition: HOSPITALIZED Disposition Time: 11:00 Patient Plan: Admission Condition: IMPROVED
--- NOTE | 2017-09-14 13:54 | CP.PCM.CON ---
<Adryan Taylor - Last Filed: 09/14/17 14:39> History of Present Illness - History of Present Illness History of Present Illness: Critical Care Consult note- Dr. Piña CC: Shortness of Breath 52M hx of Asthma, anxiety, CAD, HTN sent from [facility] due to shortness of breath and wheezing that has been going on since this morning. Currently in the Emergency department symptoms have resolved. Patient is talking in full sentences saturating at 99%. Patient states he has a history of shortness of breath and chest pain in the past. Patient also states at home, he occasionally takes anti-anxiety medication. In the Emergency room, ABG was drawn demonstrating Respiratory alkalosis, placed on BiPAP, patient was given a total of 2mg of Ativan and attempt for intubation was made, however during that time patient states he was feeling better. Currently Denies: fevers, chest pain, shortness of breath, nausea, vomiting, diarrhea, headaches PMH: Asthma, HTN, CAD, sytolic HF, DVT PSH: Gastric bypass, Cholecystectomy, cataract b/l, ALL: NKDA SocialHx: Denies Tobacco, ETOH, recreational drug use Review of Systems - Review of Systems All systems: reviewed and no additional remarkable complaints except - Constitutional Constitutional: As Per HPI Past Patient History - Infectious Disease Hx of Infectious Diseases: None - Past Social History Smoking Status: Never Smoked - CARDIAC Hx Hypertension: Yes Hx Pacemaker: No - PULMONARY Hx Asthma: Yes - NEUROLOGICAL Hx Paralysis: No - HEMATOLOGICAL/ONCOLOGICAL Hx Blood Transfusions: No - MUSCULOSKELETAL/RHEUMATOLOGICAL Hx Musculoskeletal Disorders: Yes - PSYCHIATRIC Hx Emotional Abuse: No Hx Physical Abuse: No Hx Substance Use: No - SURGICAL HISTORY Hx Gastric Bypass Surgery: Yes - ANESTHESIA Hx Anesthesia: Yes Hx Anesthesia Reactions: No Hx Malignant Hyperthermia: No Meds Allergies/Adverse Reactions: Allergies Allergy/AdvReac Type Severity Reaction Status Date / Time No Known Allergies Allergy Verified 09/14/17 11:15 Physical Exam - Constitutional Appears: Non-toxic, No Acute Distress - Head Exam Head Exam: ATRAUMATIC - Eye Exam Eye Exam: EOMI. absent: Scleral icterus - ENT Exam ENT Exam: Mucous Membranes Moist - Respiratory Exam Respiratory Exam: Clear to Auscultation Bilateral. absent: Accessory Muscle Use , Chest Wall Tenderness, Wheezes, Respiratory Distress Additional comments: Tachypnea, saturating at 99%. Talking in full sentences - Cardiovascular Exam Cardiovascular Exam: Tachycardia, +S1, +S2. absent: Bradycardia, Diastolic murmur, Gallop, Rubs - GI/Abdominal Exam GI & Abdominal Exam: Soft. absent: Distended, Firm, Guarding, Hernia, Tenderness - Neurological Exam Neurological exam: Alert, Oriented x3 - Psychiatric Exam Psychiatric exam: Anxious - Skin Skin Exam: Intact, Warm Results - Vital Signs Recent Vital Signs: Last Vital Signs Temp 98.4 F 09/14/17 11:09 Pulse 113 H 09/14/17 12:54 Resp 20 09/14/17 12:54 BP 113/64 09/14/17 12:54 Pulse Ox 100 09/14/17 12:54 - Labs Result Diagrams: 09/14/17 12:10 09/14/17 12:10 Labs: Laboratory Results - last 24 hr 09/14/17 09/14/17 09/14/17 12:10 12:10 12:40 WBC 12.0 H RBC 4.64 Hgb 13.2 L Hct 39.8 L MCV 85.8 MCH 28.4 MCHC 33.2 RDW 13.7 Plt Count 321 MPV 9.3 Gran % 81.4 H Lymph % (Auto) 13.0 L [place] % (Auto) 5.2 Eos % (Auto) 0.2 L Baso % (Auto) 0.2 Gran # 9.79 H Lymph # 1.6 [place] # 0.6 Eos # 0.0 Baso # 0.02 pCO2 28 L pO2 318.0 H HCO3 21.3 ABG pH 7.49 H ABG Total CO2 22.2 ABG O2 Saturation 99.7 H ABG O2 Content 17.3 ABG Base Excess -1.1 ABG Hemoglobin 12.0 ABG Carboxyhemoglobin 1.5 POC ABG HHb (Measured) 0.3 ABG Methemoglobin 0.6 ABG O2 Capacity 17.4 Hgb O2 Saturation 97.6 FiO2 50.0 Sodium 138 Potassium 3.7 Chloride 100 Carbon Dioxide 26 Anion Gap 16 BUN 23 H Creatinine 0.8 Est GFR ( Amer) > 60 Est GFR (Non-Af Amer) > 60 Random Glucose 232 H Calcium 9.4 Total Bilirubin 1.5 H AST 25 ALT 28 Alkaline Phosphatase 53 Total Protein 7.4 Albumin 4.7 Globulin 2.8 Albumin/Globulin Ratio 1.7 Assessment & Plan - Assessment and Plan (Free Text) Assessment: 52F w/ shortness of breath, talking in full sentences during encounter saturating at 99%, symptoms fully resolved in the ED, s/p 3mg Ativan, hx of asthma, and anxiety. CXR: no signs of acute pathology Plan: Neuro: Patient is awake, alert, responds to verbal stimuli, answers questions appropriately, follows commands, moves extremities Cardio: continue to monitor vitals Pulm: keep SaO2 above 92% tachypnea most likely 2/2 anxiety ABG- respiratory alkalosis GI: heart healthy diet Renal/Electrolytes: monitor electrolytes Endo: keep euglycemic Heme: DVT ppx Critical care team will sign off at this time. Please reconsult if needed. Thank you for the opportunity to participate in the care of this patient Patient seen, case discussed w/ and plan approved by Dr. Piña critical care attending Adryan Taylor PGY1 <Justin Piña - Last Filed: 09/14/17 15:28> Meds - Medications Medications: Current Medications Sodium Chloride (Sodium Chloride 0.9%) 1,000 mls @ 100 mls/hr IV .Q10H ENE Results - Vital Signs Recent Vital Signs: Last Vital Signs Temp 98.4 F 09/14/17 11:09 Pulse 109 H 09/14/17 15:00 Resp 20 09/14/17 15:00 BP 114/57 L 09/14/17 15:00 Pulse Ox 98 09/14/17 15:00 - Labs Result Diagrams: 09/14/17 12:10 09/14/17 12:10 Assessment & Plan - Assessment and Plan (Free Text) Plan: Patient seen and examined with resident, agree with note with following additions/exceptions: patient is 52yo male with PMhx of ASthma, and Anxiety, presented with SOB. Currently the patient is awake, alert, NAD,afebrile, HD stable, comfortable, RR 16, sat 99%, lungs CTABL. CXR without focal consolidation. ABG noted with good oxygenation, resp alkalosis. Unclear whether a psychiatric/anxiety component is driving the patients tachypnea at times, but currently stable. Cont with Duonebs PRN< IV Steroids, Azithromycin, check procalcitonin, Anxiolytics. Monitor on telemetry.
--- NOTE | 2017-09-14 13:58 | RAD ---
HISTORY: Shortness of breath, pain COMPARISON: 09/14/2017 study performed 11:59. FINDINGS: LUNGS: No active pulmonary disease. PLEURA: No significant pleural effusion identified, no pneumothorax apparent. CARDIOVASCULAR: No radiographic findings to suggest acute or significant cardiovascular disease. OSSEOUS STRUCTURES: No significant abnormalities. VISUALIZED UPPER ABDOMEN: Normal. OTHER FINDINGS: None. IMPRESSION: No active disease. No significant interval change compared to the prior examination(s).
[2017-09-14] MEDS ORDERED: Iohexol 240 (50 ml) ONE (15:46)
[2017-09-14] MEDS: Sodium Chloride 0.9% 1,000 ML IV SCH (15:57)
[2017-09-14 16:43] VITALS: O2SAT 99
--- NOTE | 2017-09-14 17:15 | CP.PCM.HP ---
<Shan Grande - Last Filed: 09/15/17 09:18> History of Present Illness - History of Present Illness History of Present Illness: Chief Complaint: Shortness of breath History of Present Illness:Patient is a 52 year old male with a history of asthma which required two intubations [place] [facility] [place] [facility] insulin dependent diabetes mellitus , congestive heart failure with ejection fraction of originally 37% now 50% s/p medications, Hypertension, deep vein thrombosis, Gastirc bypass CAD, Cholecystitis status post cholecystectomy, and anxiety who presents to [facility] [place] with complaints of shortness of breath. Patient states all his symptoms began on Tuesday. He woke up feeling dizzy, with headaches, body aches, abdominal pain , nausea, vomiting, and bloody diarrhea. Patient denies fevers, but admits to chills. States he went to his primary care physician and was provided with zithromax and steroids. Patient states however that despite taking both he did not feel better. While driving today patient states he began feeling dizzy, went to [facility] where they ausculated right upper lobe wheezing on pulmonary exam. Considering patient's history of asthma and intubations he was instructed to go to the emergency department. Patient arrived to [facility] [place] and was found to be in repsiratory alkalosis. Intubation was attempted and unsuccessful the first time. 2 mg of ativan was given however patient felt relieved with the ativan and was no longer in respiratory distress ; intubation was no longer needed. PMD: Dr. Moraes Associate Professor Of Library Media:Dr. Knutson Periodontist: Dr. Juju Lee Social history: smoked for 10 years 1.5 ppd, quit 18 years ago, social alcohol consumption, denies illicit drug use. Been to for 37 years only partner. Family history: Parents: both from heart attakcs. Nephew: of asthma attack Surgical History: Gastric bypass, Cholecystectomy Present on Admission - Present on Admission Any Indicators Present on Admission: No Review of Systems - Constitutional Constitutional: Chills, Headache. absent: Fever - EENT Eyes: absent: Blurred Vision, Change in Vision Nose/Mouth/Throat: absent: Dysphagia - Cardiovascular Cardiovascular: Dyspnea. absent: Chest Pain at Rest, Pedal Edema - Respiratory Respiratory: Cough, Dyspnea - Gastrointestinal Gastrointestinal: Abdominal Pain, Diarrhea, Nausea, Vomiting. absent: Dysphagia - Genitourinary Genitourinary: absent: Hematuria, Pyuria - Musculoskeletal Musculoskeletal: Back Pain. absent: Abnormal Gait, Arthralgias - Neurological Neurological: absent: Abnormal Hearing, Behavioral Changes - Psychiatric Psychiatric: Anxiety. absent: Confusion - Endocrine Endocrine: Fatigue. absent: Change in Body Appearance Past Patient History - Infectious Disease Hx of Infectious Diseases: None - Past Social History Smoking Status: Never Smoked - CARDIAC Hx Hypertension: Yes Hx Pacemaker: No - PULMONARY Hx Asthma: Yes - NEUROLOGICAL Hx Paralysis: No - HEMATOLOGICAL/ONCOLOGICAL Hx Blood Transfusions: No - MUSCULOSKELETAL/RHEUMATOLOGICAL Hx Musculoskeletal Disorders: Yes - PSYCHIATRIC Hx Emotional Abuse: No Hx Physical Abuse: No Hx Substance Use: No - SURGICAL HISTORY Hx Gastric Bypass Surgery: Yes - ANESTHESIA Hx Anesthesia: Yes Hx Anesthesia Reactions: No Hx Malignant Hyperthermia: No Meds Allergies/Adverse Reactions: Allergies Allergy/AdvReac Type Severity Reaction Status Date / Time No Known Allergies Allergy Verified 09/14/17 11:15 Physical Exam - Head Exam Head Exam: ATRAUMATIC, NORMAL INSPECTION, NORMOCEPHALIC - Eye Exam Eye Exam: EOMI, Normal appearance - ENT Exam ENT Exam: Mucous Membranes Moist, Normal Exam - Neck Exam Neck exam: Positive for: Normal Inspection - Respiratory Exam Respiratory Exam: Clear to Auscultation Bilateral, Wheezes (upper and lower lobes bilaterally ), NORMAL BREATHING PATTERN. absent: Rhonchi - Cardiovascular Exam Cardiovascular Exam: REGULAR RHYTHM, +S1, +S2 - GI/Abdominal Exam GI & Abdominal Exam: Normal Bowel Sounds, Soft, Tenderness (diffuse) - Neurological Exam Neurological exam: Alert, CN II-XII Intact, Oriented x3 - Psychiatric Exam Psychiatric exam: Normal Affect, Normal Mood - Skin Skin Exam: Intact, Normal Color, Warm Results - Vital Signs Recent Vital Signs: Last Vital Signs Temp 98.4 F 09/14/17 11:09 Pulse 112 H 09/14/17 16:42 Resp 20 09/14/17 16:42 BP 104/63 09/14/17 16:42 Pulse Ox 99 09/14/17 16:42 - Labs Result Diagrams: 09/15/17 06:00 09/15/17 06:00 Assessment & Plan - Assessment and Plan (Free Text) Assessment: Patient is a 52 year old male with a history of asthma which required two intubations ([place]ubation [place] [facility] [place] July 2017 [place] [facility] insulin dependent diabetes mellitus, congestive heart failure with ejection fraction of originally 37% now 50% s/p medications, Hypertension, deep vein thrombosis, Gastirc bypass CAD, Cholecystitis status post cholecystectomy, and anxiety who presents to [facility] [place] with complaints of shortness of breath. 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 - Elevated T Bili and D Bili - General surgery Surgery consulted - Gasroenterology consulted - Daniellesyatiya Hypertension - Metoprolol 25 qD - Continue to monitor BP Insulin dependent diabetes mellitus -Insulin NPH 15 units SC ACBD - ISS-Med - HhA1C ordered, results pending - continue to monitor glucose levels Dyslipidemia - Lipitor 40 mg PO qD - Lipid panel ordered <Desirae Waldron - Last Filed: 09/16/17 08:08> Results - Vital Signs Recent Vital Signs: Last Vital Signs Temp 98.1 F 09/15/17 11:40 Pulse 84 09/15/17 11:40 Resp 20 09/15/17 09:01 BP 116/72 09/15/17 11:40 Pulse Ox 99 09/15/17 09:01 - Labs Result Diagrams: 09/15/17 06:00 09/15/17 06:00 Labs: Laboratory Results - last 24 hr 09/15/17 09/15/17 09/15/17 06:00 11:37 16:16 POC Glucose (mg/dL) 157 H 255 H Procalcitonin < 0.05 L Attending/Attestation - Attestation I have personally seen and examined this patient.: Yes I have fully participated in the care of the patient.: Yes I have reviewed all pertinent clinical information: Yes Notes (Text): 09/16/17 08:05 Attending note; Patient seen and examined with resident in ER. Patient is a 52 year old male with a history of asthma which required two intubations (first [place]ubation in [place] [facility] [place] July 2017 [place] [facility] insulin dependent diabetes mellitus, congestive heart failure with ejection fraction of originally 37% now 50% s/p medications, Hypertension, deep vein thrombosis, Gastirc bypass , Cholecystitis status post cholecystectomy , and anxiety who presents to [facility] [place] with complaints of shortness of breath. The patient was in respiratory distress at the time of admission. ABG showed respiratory alkalosis. Patient was evaluated by ICU attending. Respiratory status improved after Ativan. Currently getting breathing treatment. Continue oxygen nasal cannula. Abdominal discomfort; history of precancerous colon polyp diagnosed on colonoscopy over [address] abdomen and pelvis ordered. GI evaluation requested. Patient also follows up with pulmonary and grinding machine operator Dr. Knutson as outpatient. Patient follows up with GI Dr. David. Upon discharge the patient will follow-up with PMD Dr. Moraes.
[2017-09-14] MEDS ORDERED: Albuterol-Ipratrop 3 mg / 0.5 (3 ml) UD IH STA (17:17)
[2017-09-14] MEDS ORDERED: Albuterol-Ipratrop 3 mg / 0.5 (3 ml) UD IH PRN (17:20)
[2017-09-14] MEDS ORDERED: Iohexol 350 MG/100 ML VIAL ONE (18:10)
[2017-09-14] MEDS ORDERED: Albuterol-Ipratrop 3 mg / 0.5 (3 ml) UD IH SCH (20:00)
[2017-09-14] MEDS: Albuterol-Ipratrop 3 mg / 0.5 (3 ml) UD IH SCH (21:46)
[2017-09-14] MEDS: Insulin Human NPH/Reg 70/30 Vial(3 ml) SC SCH (21:57)
[2017-09-14] MEDS: Insulin Reg-MEDIUM-Coverage SC SCH (21:58)
--- NOTE | 2017-09-15 00:27 | CT ---
EXAM: CT Abdomen and Pelvis With Intravenous Contrast EXAM DATE/TIME: 09/14/2017 3:33 PM CLINICAL HISTORY: 52 years old, male; Pain; Abdominal pain; Epigastric; Prior surgery; Surgery date: 6+ months; Surgery type: Gastric bypass TECHNIQUE: Axial computed tomography images of the abdomen and pelvis with intravenous contrast. All CT scans at this facility use one or more dose reduction techniques, viz.: automated exposure control; ma/kV adjustment per patient size (including targeted exams where dose is matched to indication; i.e. head); or iterative reconstruction technique. Coronal and sagittal reformatted images were created and reviewed. CONTRAST: 96 mL of omni 350 administered intravenously. COMPARISON: There are no prior studies for comparison. FINDINGS: Lower thorax: The heart size is normal. Lung bases are hyperinflated. There is minimal subsegmental atelectasis/scarring at the lung bases. ABDOMEN: Liver: unremarkable Gallbladder and bile ducts: Gallbladder is absent.There is prominence of the common duct. Pancreas: Pancreas is mildly atrophic. Spleen: unremarkable Adrenals: unremarkable Kidneys and ureters: There are small bilateral nonobstructing renal stones. The kidneys otherwise Stomach and bowel: There postsurgical changes of gastric bypass. There is no obstruction at the gastrojejunostomy. There is contrast throughout functioning small bowel. There are mildly dilated loops in the left lower quadrant and midabdomen wall thickening. This can be traced to the bowel anastomosis. There is swirling of the mesentery in the mid to lower abdomen suggesting volvulus. Associated ileal loops project in the right upper quadrant. Loops are normal in caliber and filled with contrast. There is contrast in distal small bowel and terminal ileum. Ileocecal region is unremarkable. Appendix and terminal ileum are unremarkable. The there is contrast stool and air throughout the colon. Appendix: See stomach and bowel PELVIS: Bladder: unremarkable Reproductive: The prostate is enlarged. There is prominence of the seminal vesicles. ABDOMEN and PELVIS: Intraperitoneal space: There is no free air or free fluid. Bones/joints: There are old healed rib fractures.There are degenerative changes in the osseus structures. Soft tissues: unremarkable Vasculature: Vascular structures are unremarkable. Lymph nodes: There is no pathologic adenopathy. IMPRESSION: Gastric bypass; swirling of the mesentery in the midabdomen and left abdomen suggesting mesenteric volvulus, mildly distended thickened small bowel loops in the left mid abdomen and pelvis may be partially obstructed due to the volvulus, right abdominal loops are nonobstructed and contrast-filled; no acute solid visceral abnormality; cholecystectomy Additional nonemergent findings as described above.
[2017-09-15] MEDS: Albuterol-Ipratrop 3 mg / 0.5 (3 ml) UD IH SCH ×5 (00:50→15:50)
[2017-09-15 04:05] VITALS: RESP 20
--- NOTE | 2017-09-15 05:18 | CP.PCM.CON ---
<Aysha Lincoln - Last Filed: 09/15/17 09:49> History of Present Illness - History of Present Illness History of Present Illness: PGY2 Medicine Resident Consult note for GI 52yo male PMHx asthma requiring two intubations (first intubation in January 2017 at [facility] second intubation in July 2017 at [facility] [place] IDDM, CHF EF originally 35%- 40% on cardiac cath 01/2016 now 50% s/p medications, HTN, DVT, gastric bypass, CAD, cholecystitis status post cholecystectomy, and anxiety presented to [facility] ED with SOB for 3 days. Patient stated he woke up with dizziness, headaches, body aches, abd pain, nausea, vomiting, and bloody diarrhea. He stated he has been noticing blood in his stool for 1 month now but has had diarrhea which he described as "straight blood" since for 3 days. Patient admitted to 2 episodes/ day and denied melena. He reports having 2 prior colonoscopies in the past showing precancerous polyps [last scope in 2014] and was told to follow up but never did. He admitted to nausea and episodes of nonbloody nonilious emesis daily for the past 3 days although could not quantify how many times/quantity. He stated he had not eaten in 6 days secondary to the nausea. Patient also complained of RLQ pain for which he did not try any alleviating factors. Patient also reported a temp of 103-104F on Tuesday when symptoms began and was seen by PMD who gave him a Zpack and steroids. Patient symptoms did not improve and progressively worsened. Prior to coming in to [facility] patient went to [facility] where he was instructed to visit ED immediately in light of his history of asthma and intubations and wheezing on pulmonary exam. In the ED patient was found to be in respiratory alkalosis and intubation was attempted but unsuccessful. After receiving 2mg ativan patients respiratory distress improved. ROS: 12 point review of systems negative except as indicated in HPI PMHx: CHF with EF 37%, DVT x 1, asthma, DM, HTN PSurgHx: gastric bypass 6 years prior in [place] with Dr. Kessler, cholecystectomy 2 years ago [facility] [place], hernia repair R side PProcedures: Colonoscopy 2003 showing precancerous polyps- repeat colonosopy 2014 showing 2 precancerous polyps; Endoscopy 2011 Family Hx: both parents of MA; nephew of asthma exacerbation Social Hx: smoked for 10 years 1.5 ppd, quit 18 years ago, social alcohol consumption, denies illicit drug use. Been to for 37 years only partner. Meds: Please see medication reconciliation ALL: NKDA PMD: Dr. Moraes Cardio: Dr. Knutson Pulm: Dr. Lee GI: None Pharmacy: [facility] Review of Systems - Review of Systems All systems: reviewed and no additional remarkable complaints except - Constitutional Constitutional: As Per HPI, Chills, Fever - EENT Eyes: As Per HPI. absent: Blurred Vision Ears: As Per HPI, Dizziness Nose/Mouth/Throat: As Per HPI. absent: Sore Throat - Cardiovascular Cardiovascular: As Per HPI, Dyspnea. absent: Chest Pain, Dyspnea on Exertion, Edema - Respiratory Respiratory: As Per HPI, Dyspnea, Wheezing. absent: Cough - Gastrointestinal Gastrointestinal: As Per HPI, Abdominal Pain, Diarrhea, Hematochezia, Loose Stools, Nausea, Vomiting. absent: Constipation, Hematemesis, Melena - Genitourinary Genitourinary: As Per HPI. absent: Dysuria, Hematuria - Musculoskeletal Musculoskeletal: As Per HPI. absent: Numbness, Tingling - Integumentary Integumentary: As Per HPI. absent: Dry Skin, Rash - Neurological Neurological: As Per HPI, Dizziness, Weakness Past Patient History - Infectious Disease Hx of Infectious Diseases: None - Past Social History Smoking Status: Never Smoked - CARDIAC Hx Hypertension: Yes Hx Pacemaker: No - PULMONARY Hx Asthma: Yes - NEUROLOGICAL Hx Paralysis: No - HEMATOLOGICAL/ONCOLOGICAL Hx Blood Transfusions: No - MUSCULOSKELETAL/RHEUMATOLOGICAL Hx Musculoskeletal Disorders: Yes Hx Falls: No - PSYCHIATRIC Hx Emotional Abuse: No Hx Physical Abuse: No - SURGICAL HISTORY Hx Gastric Bypass Surgery: Yes - ANESTHESIA Hx Anesthesia: Yes Hx Anesthesia Reactions: No Hx Malignant Hyperthermia: No Meds Allergies/Adverse Reactions: Allergies Allergy/AdvReac Type Severity Reaction Status Date / Time No Known Allergies Allergy Verified 09/14/17 11:15 - Medications Medications: Current Medications Albuterol/Ipratropium (Duoneb 3 Mg/0.5 Mg (3 Ml) Ud) 3 ml IH Q2 PRN PRN Reason: Shortness of Breath Albuterol/Ipratropium (Duoneb 3 Mg/0.5 Mg (3 Ml) Ud) 3 ml IH Q4 ENE Last Admin: 09/15/17 04:05 Dose: Not Given Atorvastatin Calcium (Lipitor) 40 mg PO DAILY [facility] Clopidogrel Bisulfate (Plavix) 75 mg PO DAILY [facility] Heparin Sodium (Porcine) (Heparin) 5,000 units SC Q12 [facility] PRN Reason: Protocol Last Admin: 09/14/17 21:57 Dose: Not Given Sodium Chloride (Sodium Chloride 0.9%) 1,000 mls @ 100 mls/hr IV .Q10H [facility] Last Admin: 09/14/17 15:57 Dose: 100 mls/hr Insulin Human Regular (Humulin R Med) 0 units SC ACHS [facility] PRN Reason: Protocol Last Admin: 09/14/17 21:58 Dose: Not Given Methylprednisolone (Solu-Medrol) 60 mg IVP DAILY [facility] Metoprolol Tartrate (Lopressor) 25 mg PO DAILY [facility] Montelukast Sodium (Singulair) 10 mg PO DAILY [facility] Pantoprazole Sodium (Protonix Inj) 40 mg IVP DAILY [facility] Last Admin: 09/14/17 18:55 Dose: 40 mg Physical Exam - Constitutional Appears: Non-toxic, No Acute Distress - Head Exam Head Exam: ATRAUMATIC, NORMAL INSPECTION, NORMOCEPHALIC - Eye Exam Eye Exam: EOMI, Normal appearance, PERRL. absent: Conjunctival injection, Scleral icterus - ENT Exam ENT Exam: Mucous Membranes Moist - Neck Exam Neck exam: Positive for: Full Rom, Normal Inspection - Respiratory Exam Respiratory Exam: Wheezes, NORMAL BREATHING PATTERN. absent: Accessory Muscle Use, Respiratory Distress - Cardiovascular Exam Cardiovascular Exam: REGULAR RHYTHM, RRR, +S1, +S2. absent: Systolic Murmur - GI/Abdominal Exam GI & Abdominal Exam: Normal Bowel Sounds, Soft, Tenderness (diffuse ). absent: Distended, Firm, Guarding, Rebound, Rigid Additional comments: surgical scars noted - Extremities Exam Extremities exam: Positive for: normal capillary refill, normal inspection, pedal pulses present - Neurological Exam Neurological exam: Alert, Oriented x3 - Psychiatric Exam Psychiatric exam: Normal Affect, Normal Mood - Skin Skin Exam: Dry, Intact, Normal Color, Warm Results - Vital Signs Recent Vital Signs: Last Vital Signs Temp 98.4 F 09/14/17 11:09 Pulse 117 H 09/14/17 18:30 Resp 20 09/15/17 03:44 BP 106/68 09/14/17 18:30 Pulse Ox 99 09/14/17 18:30 - Labs Result Diagrams: 09/15/17 06:00 09/15/17 06:00 Labs: Laboratory Results - last 24 hr 09/14/17 21:21 POC Glucose (mg/dL) 286 H Assessment & Plan - Assessment and Plan (Free Text) Assessment: 52yo male PMHx asthma requiring two intubations (first intubation in January 2017 at [facility] second intubation in July 2017 at [facility] [place] IDDM, CHF EF originally 35%- 40% on cardiac cath 01/2016 now 50% s/p medications, HTN, DVT, gastric bypass, CAD, cholecystitis status post cholecystectomy, and anxiety presented to [facility] ED with SOB for 3 days. GI consulted for hematochezia 1. Lower GI bleed 2. Acute asthma exacerbation 3. Hx of CHF 4. Hx of CAD 5. Hx of DVT 6. Hx of HTN 7. Hx of IDDM 8. Hx of dyslipidemia 9. Hx of gastric bypass 6 years ago Plan: -CT Abd/pelvis: gastric bypass; swirling of the mesentery in the midabdomen and left abdomen suggesting mesenteric volvulus, mildly distended thickened small bowel loops in the left mid abdomen and pelvis may be partially obstructed due to the volvulus, right abdominal loops are nonobstructed and contrast-filled; no acute solid visceral abnl; cholecystectomy -TBili: 1.5 --> 0.8 -DBili: 0.6 -Alk phosphatase: 53--> 35 -In light of CT findings f/u surgery recommendations. -No acute endoscopic eval at this time. However patient is strongly recommended to follow up with GI and is in need of colonoscopy upon resolution of acute issues. GI will continue to follow Discussed with Dr. Adryan Lincoln PGY2 <Eddie Cornelius - Last Filed: 09/15/17 15:19> Meds - Medications Medications: Current Medications Albuterol/Ipratropium (Duoneb 3 Mg/0.5 Mg (3 Ml) Ud) 3 ml IH Q2 PRN PRN Reason: Shortness of Breath Albuterol/Ipratropium (Duoneb 3 Mg/0.5 Mg (3 Ml) Ud) 3 ml IH Q4 ENE Last Admin: 09/15/17 11:05 Dose: 3 ml Aspirin (Ecotrin) 81 mg PO DAILY [facility] Last Admin: 09/15/17 10:14 Dose: Not Given Atorvastatin Calcium (Lipitor) 40 mg PO DAILY [facility] Last Admin: 09/15/17 10:20 Dose: Not Given Clopidogrel Bisulfate (Plavix) 75 mg PO DAILY [facility] Last Admin: 09/15/17 09:32 Dose: 75 mg Heparin Sodium (Porcine) (Heparin) 5,000 units SC Q12 [facility] PRN Reason: Protocol Last Admin: 09/15/17 09:29 Dose: 5,000 units Sodium Chloride (Sodium Chloride 0.9%) 1,000 mls @ 100 mls/hr IV .Q10H [facility] Last Admin: 09/15/17 05:23 Dose: 100 mls/hr Levofloxacin/Dextrose (Levaquin 750mg) 750 mg in 150 mls @ 100 mls/hr IVPB DAILY [facility] PRN Reason: Protocol Last Admin: 09/15/17 10:15 Dose: 100 mls/hr Insulin Human Regular (Humulin R Med) 0 units SC ACHS [facility] PRN Reason: Protocol Last Admin: 09/15/17 14:14 Dose: Not Given Methylprednisolone (Solu-Medrol) 60 mg IVP DAILY [facility] Last Admin: 09/15/17 09:32 Dose: 60 mg Metoprolol Tartrate (Lopressor) 25 mg PO DAILY [facility] Last Admin: 09/15/17 10:20 Dose: Not Given Montelukast Sodium (Singulair) 10 mg PO DAILY [facility] Last Admin: 09/15/17 09:32 Dose: 10 mg Morphine Sulfate (Morphine) 2 mg IVP Q4H PRN PRN Reason: Pain, moderate (4-7) Last Admin: 09/15/17 11:24 Dose: 2 mg Ondansetron HCl (Zofran Inj) 4 mg IVP Q4H PRN PRN Reason: Nausea/Vomiting Last Admin: 09/15/17 12:08 Dose: 4 mg Oxycodone/Acetaminophen (Percocet 5/325 Mg Tab) 1 tab PO Q4H PRN PRN Reason: Pain, Mild (1-3) Stop: 09/18/17 08:31 Last Admin: 09/15/17 09:32 Dose: 1 tab Pantoprazole Sodium (Protonix Inj) 40 mg IVP DAILY [facility] Last Admin: 09/15/17 12:08 Dose: 40 mg Results - Vital Signs Recent Vital Signs: Last Vital Signs Temp 98.1 F 09/15/17 11:40 Pulse 84 09/15/17 11:40 Resp 20 09/15/17 09:01 BP 116/72 09/15/17 11:40 Pulse Ox 99 09/15/17 09:01 - Labs Result Diagrams: 09/15/17 06:00 09/15/17 06:00 Labs: Laboratory Results - last 24 hr 09/15/17 11:37 POC Glucose (mg/dL) 157 H Attending/Attestation - Attestation I have personally seen and examined this patient.: Yes I have fully participated in the care of the patient.: Yes I have reviewed all pertinent clinical information: Yes Notes (Text): 09/15/17 15:17 52 year old male h/o asthma, DM, CHF, HTN, DVT, RNY gastric bypass, h/o cholecystectomy, CAD admitted with abdominal pain and rectal bleeding. 1. Volvulus 2. 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
[2017-09-15] MEDS: Sodium Chloride 0.9% 1,000 ML IV SCH (05:23)
[2017-09-15 06:32] LABS: BASO # 0.02 K/mm3 (0.0-2.0); BASO % 0.2 % (0.0-3.0); EOS % 0.1 % (1.5-5.0); GRAN # 8.83 (1.4-6.5); GRAN % 69.5 % (50.0-68.0); HEMOGLOBIN 11.4 g/dL (14.0-18.0); LYMPH # 3.2 (1.2-3.4); LYMPH % 25.3 % (22.0-35.0); MEAN CELL VOLUME 87.4 fl (80.0-105.0); MEAN CORPUSCULAR HEMOGLOBIN 28.2 pg (25.0-35.0); MEAN CORPUSCULAR HGB CONC 32.3 g/dl (31.0-37.0); MEAN PLATELET VOLUME 9.3 fl (7.0-11.0); MONO # 0.6 (0.1-0.6); MONO % 4.9 % (1.0-6.0); RBC 4.04 10^6/uL (3.5-6.1); WHITE BLOOD COUNT 12.7 10^3/ul (4.5-11.0)
[2017-09-15 07:09] LABS: ALB/GLOB RATIO 1.4 (1.1-1.8); ALBUMIN 3.5 g/dL (3.0-4.8); ALT/SGPT 28 U/L (7-56); AST/SGOT 29 U/L (17-59); BLOOD UREA NITROGEN 19 mg/dL (7-21); CALCIUM 8.4 mg/dL (8.4-10.5); GFR AFRICAN-AMERICAN > 60; GFR NON-AFRICAN AMERICAN > 60; MAGNESIUM 2.2 mg/dL (1.7-2.2)
[2017-09-15] MEDS ORDERED: Piperacillin/Tazobact 3.375 gm 100 ML IVPB STA (07:42)
[2017-09-15] MEDS ORDERED: Oxycodone/Acetaminophen 5/325 mg Tab PO PRN (08:30)
--- NOTE | 2017-09-15 08:35 | CP.PCM.CON ---
<David Sotelo - Last Filed: 09/15/17 15:34> History of Present Illness - History of Present Illness History of Present Illness: Surgery Consult note. Dr. Whitaker 52yo M with PMHx of Asthma, DM, HTN, Gastric bypass 6 years ago here with CC of Asthma exacerbation. Surgery consulted due to reported abdominal pain last night. Patient states that he has had similar symptoms over the past few months and he has ignored them. Patient is not a reliable historian. Upon initial evaluation, patient stated that he has been passing gas and has been having regular bowel movements and the pain is not too severe. To GI colleagues, he has been stating that he has been having bloody diarrhea. Upon reevaluation by me, patient states that he has not tolerated any food since Tuesday, 5 days, and has not had any bowel movements over the past 2 days, and denies any flatus. He reports 2 episodes of emesis per day for the past 2 days. States that his abdominal pain has been getting worse today. Denies any sick contacts. Does report SOB. No current CP. PMHx: Asthma, DM, HTN, CHF PSHx: Gastric Bypass surgery 6 years ago, Cholecystectomy 2 years ago Social Hx: Denies current Tobacco use; Denies illicit drugs; Social ETOH use NKDA Review of Systems - Review of Systems All systems: reviewed and no additional remarkable complaints except - Constitutional Constitutional: absent: Chills, Fever - Cardiovascular Cardiovascular: Dyspnea. absent: Chest Pain - Respiratory Respiratory: Dyspnea - Gastrointestinal Gastrointestinal: Abdominal Pain, Nausea, Vomiting. absent: Diarrhea - Genitourinary Genitourinary: absent: Dysuria Past Patient History - Infectious Disease Hx of Infectious Diseases: None - Past Social History Smoking Status: Never Smoked - CARDIAC Hx Hypertension: Yes Hx Pacemaker: No - PULMONARY Hx Asthma: Yes - NEUROLOGICAL Hx Paralysis: No - HEMATOLOGICAL/ONCOLOGICAL Hx Blood Transfusions: No - MUSCULOSKELETAL/RHEUMATOLOGICAL Hx Musculoskeletal Disorders: Yes Hx Falls: No - PSYCHIATRIC Hx Emotional Abuse: No Hx Physical Abuse: No - SURGICAL HISTORY Hx Gastric Bypass Surgery: Yes - ANESTHESIA Hx Anesthesia: Yes Hx Anesthesia Reactions: No Hx Malignant Hyperthermia: No Meds Home Medications: Home Medication List Medication Instructions Recorded Confirmed Type Methylprednisolone [Medrol Dose 4 mg PO DAILY #21 mg 09/15/17 Rx Pack (21 tabs)] Allergies/Adverse Reactions: Allergies Allergy/AdvReac Type Severity Reaction Status Date / Time No Known Allergies Allergy Verified 09/14/17 11:15 - Medications Medications: Current Medications Albuterol/Ipratropium (Duoneb 3 Mg/0.5 Mg (3 Ml) Ud) 3 ml IH Q2 PRN PRN Reason: Shortness of Breath Albuterol/Ipratropium (Duoneb 3 Mg/0.5 Mg (3 Ml) Ud) 3 ml IH Q4 [facility] Last Admin: 09/15/17 07:28 Dose: 3 ml Aspirin (Ecotrin) 81 mg PO DAILY [facility] Atorvastatin Calcium (Lipitor) 40 mg PO DAILY [facility] Clopidogrel Bisulfate (Plavix) 75 mg PO DAILY [facility] Heparin Sodium (Porcine) (Heparin) 5,000 units SC Q12 [facility] PRN Reason: Protocol Last Admin: 09/14/17 21:57 Dose: Not Given Sodium Chloride (Sodium Chloride 0.9%) 1,000 mls @ 100 mls/hr IV .Q10H [facility] Last Admin: 09/15/17 05:23 Dose: 100 mls/hr Levofloxacin/Dextrose (Levaquin 750mg) 750 mg in 150 mls @ 100 mls/hr IVPB DAILY [facility] PRN Reason: Protocol Insulin Human Regular (Humulin R Med) 0 units SC ACHS [facility] PRN Reason: Protocol Last Admin: 09/14/17 21:58 Dose: Not Given Methylprednisolone (Solu-Medrol) 60 mg IVP DAILY [facility] Metoprolol Tartrate (Lopressor) 25 mg PO DAILY [facility] Montelukast Sodium (Singulair) 10 mg PO DAILY [facility] Oxycodone/Acetaminophen (Percocet 5/325 Mg Tab) 1 tab PO Q4H PRN PRN Reason: Pain, Mild (1-3) Stop: 09/18/17 08:31 Pantoprazole Sodium (Protonix Inj) 40 mg IVP DAILY [facility] Last Admin: 09/14/17 18:55 Dose: 40 mg Pantoprazole Sodium (Protonix Ec Tab) 40 mg PO 0600 [facility] Pantoprazole Sodium (Protonix Ec Tab) 40 mg PO ONCE ONE Stop: 09/16/17 08:33 Physical Exam - Constitutional Appears: Non-toxic, No Acute Distress - Head Exam Head Exam: ATRAUMATIC, NORMAL INSPECTION, NORMOCEPHALIC - Eye Exam Eye Exam: EOMI - ENT Exam ENT Exam: Mucous Membranes Moist - Respiratory Exam Respiratory Exam: NORMAL BREATHING PATTERN. absent: Accessory Muscle Use, Respiratory Distress - Cardiovascular Exam Cardiovascular Exam: absent: JVD - GI/Abdominal Exam GI & Abdominal Exam: Soft. absent: Firm, Rebound, Rigid Additional comments: Diffuse tenderness to palpation; No tenderness to palpation when patient distracted. - Extremities Exam Extremities exam: Positive for: normal inspection. Negative for: calf tenderness - Neurological Exam Neurological exam: Alert, Oriented x3 - Skin Skin Exam: Dry, Intact, Normal Color, Warm Results - Vital Signs Recent Vital Signs: Last Vital Signs Temp 98.4 F 09/14/17 11:09 Pulse 117 H 09/14/17 18:30 Resp 20 09/15/17 03:44 BP 106/68 09/14/17 18:30 Pulse Ox 99 09/14/17 18:30 - Labs Result Diagrams: 09/15/17 06:00 09/15/17 06:00 Labs: Laboratory Results - last 24 hr 09/14/17 09/15/17 09/15/17 21:21 06:00 06:00 WBC 12.7 H RBC 4.04 Hgb 11.4 L Hct 35.3 L MCV 87.4 MCH 28.2 MCHC 32.3 RDW 14.0 Plt Count 281 MPV 9.3 Gran % 69.5 H Lymph % (Auto) 25.3 [place] % (Auto) 4.9 Eos % (Auto) 0.1 L Baso % (Auto) 0.2 Gran # 8.83 H Lymph # 3.2 [place] # 0.6 Eos # 0.0 Baso # 0.02 APTT Sodium 142 Potassium 3.8 Chloride 105 Carbon Dioxide 28 Anion Gap 13 BUN 19 Creatinine 0.8 Est GFR ( Amer) > 60 Est GFR (Non-Af Amer) > 60 POC Glucose (mg/dL) 286 H Random Glucose 96 Calcium 8.4 Phosphorus 4.6 H Magnesium 2.2 Total Bilirubin 0.8 AST 29 ALT 28 Alkaline Phosphatase 35 L D Total Protein 5.9 Albumin 3.5 Globulin 2.4 Albumin/Globulin Ratio 1.4 09/15/17 09/15/17 06:00 07:23 WBC RBC Hgb Hct MCV MCH MCHC RDW Plt Count MPV Gran % Lymph % (Auto) [place] % (Auto) Eos % (Auto) Baso % (Auto) Gran # Lymph # [place] # Eos # Baso # APTT 25.3 Sodium Potassium Chloride Carbon Dioxide Anion Gap BUN Creatinine Est GFR ( Amer) Est GFR (Non-Af Amer) POC Glucose (mg/dL) 125 H Random Glucose Calcium Phosphorus Magnesium Total Bilirubin AST ALT Alkaline Phosphatase Total Protein Albumin Globulin Albumin/Globulin Ratio Assessment & Plan - Assessment and Plan (Free Text) Assessment: 52yo M with Hx of Gastric Bypass. 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 - CT scan noted - Doubt bowel obstruction Plan: - Continue to monitor patient clinically - F/u GI workup of anemia and ?GIB - No acute plans for surgery. We will continue to follow patient and monitor for signs of obstruction - continue medical management of acute symptoms Further recs as per Dr. Sherman Sotelo PGY1 surgery pager: [phone] <Lito Whitaker - Last Filed: 09/15/17 21:06> Results - Vital Signs Recent Vital Signs: Last Vital Signs Temp 98.1 F 09/15/17 11:40 Pulse 84 09/15/17 11:40 Resp 20 09/15/17 09:01 BP 116/72 09/15/17 11:40 Pulse Ox 99 09/15/17 09:01 - Labs Result Diagrams: 09/15/17 06:00 09/15/17 06:00 Labs: Laboratory Results - last 24 hr 09/14/17 09/15/17 09/15/17 21:21 06:00 06:00 WBC 12.7 H RBC 4.04 Hgb 11.4 L Hct 35.3 L MCV 87.4 MCH 28.2 MCHC 32.3 RDW 14.0 Plt Count 281 MPV 9.3 Gran % 69.5 H Lymph % (Auto) 25.3 [place] % (Auto) 4.9 Eos % (Auto) 0.1 L Baso % (Auto) 0.2 Gran # 8.83 H Lymph # 3.2 [place] # 0.6 Eos # 0.0 Baso # 0.02 APTT Sodium Potassium Chloride Carbon Dioxide Anion Gap BUN Creatinine Est GFR ( Amer) Est GFR (Non-Af Amer) POC Glucose (mg/dL) 286 H Random Glucose Calcium Phosphorus Magnesium Total Bilirubin AST ALT Alkaline Phosphatase Total Protein Albumin Globulin Albumin/Globulin Ratio Procalcitonin < 0.05 L 09/15/17 09/15/17 09/15/17 06:00 06:00 07:23 WBC RBC Hgb Hct MCV MCH MCHC RDW Plt Count MPV Gran % Lymph % (Auto) [place] % (Auto) Eos % (Auto) Baso % (Auto) Gran # Lymph # [place] # Eos # Baso # APTT 25.3 Sodium 142 Potassium 3.8 Chloride 105 Carbon Dioxide 28 Anion Gap 13 BUN 19 Creatinine 0.8 Est GFR ( Amer) > 60 Est GFR (Non-Af Amer) > 60 POC Glucose (mg/dL) 125 H Random Glucose 96 Calcium 8.4 Phosphorus 4.6 H Magnesium 2.2 Total Bilirubin 0.8 AST 29 ALT 28 Alkaline Phosphatase 35 L D Total Protein 5.9 Albumin 3.5 Globulin 2.4 Albumin/Globulin Ratio 1.4 Procalcitonin 09/15/17 09/15/17 11:37 16:16 WBC RBC Hgb Hct MCV MCH MCHC RDW Plt Count MPV Gran % Lymph % (Auto) [place] % (Auto) Eos % (Auto) Baso % (Auto) Gran # Lymph # [place] # Eos # Baso # APTT Sodium Potassium Chloride Carbon Dioxide Anion Gap BUN Creatinine Est GFR ( Amer) Est GFR (Non-Af Amer) POC Glucose (mg/dL) 157 H 255 H Random Glucose Calcium Phosphorus Magnesium Total Bilirubin AST ALT Alkaline Phosphatase Total Protein Albumin Globulin Albumin/Globulin Ratio Procalcitonin Assessment & Plan - Assessment and Plan (Free Text) Plan: Patient was seen, evaluated and examined by me. I agree with the assessment and plan as per the resident's note.
[2017-09-15] MEDS: Insulin Reg-MEDIUM-Coverage SC SCH ×2 (09:30→14:14)
[2017-09-15] MEDS: levoFLOXacin 750 mg in D5W 750 MG/150 ML BAG IVPB SCH ×2 (09:30→10:15)
[2017-09-15] MEDS ORDERED: MethylPREDNISolone 40 mg Vial IVP SCH (10:00)
[2017-09-15] MEDS ORDERED: Non Formulary Medication (Rosuvastatin Calcium [Crestor] 10 MG) PO SCH (10:00)
[2017-09-15] MEDS: Insulin Human NPH/Reg 70/30 Vial(3 ml) SC SCH (10:14)
[2017-09-15] MEDS ORDERED: Morphine 2 mg/ml ISec IVP PRN (10:32)
[2017-09-15 13:52] VITALS: BP 116/72; PULSE 84; TEMP 98.1
[2017-09-15] MEDS ORDERED: Morphine 2 mg/ml ISec IVP ONE (14:02)
--- NOTE | 2017-09-15 18:10 | CARD ---
APPROVED REPORT EKG Measurement Heart [id number] <Conclusion> Normal sinus rhythm Normal ECG
[2017-09-16] MEDS ORDERED: Pantoprazole 40 mg EC Tab PO SCH (06:00)
[2017-09-16] MEDS ORDERED: Pantoprazole 40 mg EC Tab PO ONE (08:32)
--- NOTE | 2017-09-16 08:47 | DS ---
HISTORY OF PRESENT ILLNESS: This is a 52-year-old male who came into the hospital with acute asthma exacerbation. He says he has been feeling better. He was also complaining of abdominal pain. He does have a history of gastric bypass. The patient was getting nebulizer treatment. He says he was feeling better. PHYSICAL EXAMINATION: VITAL SIGNS: Temperature is 98.1, pulse of 84, blood pressure 116/72, respirations are 14, O2 saturation 99%. GENERAL: The patient lying in bed, uncomfortable, and in no acute distress. HEENT: Atraumatic and normocephalic. Anicteric sclerae. Moist mucosa. [place] conjunctivae. No oral lesions. NECK: No JVD, anterior and posterior adenopathy, thyromegaly, or bruits. CARDIOVASCULAR: S1 and S2 regular. No murmur, rubs, or gallop. LUNGS: Clear to auscultation bilaterally. No wheezes, rales, or rhonchi. ABDOMEN: Bowel sounds are positive. Soft, nontender and nondistended. No hepatosplenomegaly. No rebound and no guarding EXTREMITIES: No cyanosis, clubbing, or edema. NEUROLOGIC: No facial asymmetry. Tongue is midline. No uvula deviation. Power is 5/5 upper extremity and lower extremity. Sensation intact in upper extremity and lower extremity. PSYCHIATRIC: He is awake, alert and oriented x3. No anxiety or depression. He has normal affect. GENITOURINARY: No CVA tenderness. VASCULAR: 2+ pulses in the carotid pulses and pedal pulses. SKIN: No erythema or nodules SPINE: Shows normal curvature. ASSESSMENT: 1. Acute asthma exacerbation, improved. 2. Coronary artery disease. 3. Hypertension. 4. Diabetes type 2. 5. History of gastric bypass. 6. Dyslipidemia. PLAN: The patient is admitted to the hospital and he is comfortable. He was seen by GI as well as surgery. The patient did not require any surgical intervention. He was not happy with his care regarding his abdominal pain. He says he wanted to go home. He did not want to stay in the hospital. There were no plans for surgery. He says he is to follow with his primary care doctor and his surgeon. The patient was on morphine for pain. He was receiving albuterol. He is on steroids IV. The patient was advised to come back to the hospital if his symptoms worsen. John Brock MD
== END 2017-09-15 16:38 | disposition home or self-care (01) ==
LOC: ED 10:54 → ERH 13:56 → 3RNO 20:15 → INTOOBSV 09-15 11:32 → OBSVTOIN 09-15 11:32
PROVIDERS: ADMIT Internal Medicine; ATTEND Internal Medicine Nephrology
DX: J45.901 Unspecified asthma with (acute) exacerbation (principal); I11.0 Hypertensive heart disease with heart failure; I50.20 Unspecified systolic (congestive) heart failure; E11.9 Type 2 diabetes mellitus without complications; I25.10 Atherosclerotic heart disease of native coronary artery without angina pectoris; K56.2 Volvulus; K62.5 Hemorrhage of anus and rectum; E78.5 Hyperlipidemia, unspecified; F41.9 Anxiety disorder, unspecified; E87.3 Alkalosis; Z86.718 Personal history of other venous thrombosis and embolism; Z86.010 Personal history of colon polyps; Z87.891 Personal history of nicotine dependence; Z79.4 Long term (current) use of insulin; Z79.82 Long term (current) use of aspirin; Z98.84 Bariatric surgery status
CPT/HCPCS: 36415; 71045; 74177; 80053; 82248; 82803; 82948; 83735; 84100; 84145; 85025; 85730; 86403; 93005; 94640; 94660; 96360; 96365; 96372; 96374; 99285; C9113; G0378; J1644; J1885; J2060; J2270; J2405; J2920; J2930; J3105; J3475; J7040; Q9966; Q9967